=== PATIENT | female | born 1950 | race Caucasian/White ===

== ENCOUNTER 2017-01-03 15:45 | Inpatient (IN) | payer OTHER ==
[~2017-01-03] VITALS: Ht 157.5 cm; Wt 66.0 kg
[~2017-01-03 15:45] MED LIST: FLUT0.15 NAE; FSMD/70 PO
[2017-01-03] MEDS ORDERED: SODIUM CHLORIDE 0.9% 1000ML 1,000 ML IV STA (16:21)
[2017-01-03 16:35] LABS: BASO % 0.1 %; BASO ABS # 0.02 K/uL (0-0.2); COMPLETE YES; EOS % 0.2 %; HEMATOCRIT 47.8 % (37-47); IG% 0.3 %; LYMPH % 11.7 %; LYMPH ABS # 2.03 K/uL (1.2-3.4); MEAN CELL VOLUME 85.7 fL (80-100); MEAN CORPUSCULAR HEMOGLOBIN 30.3 pg (25-34); MEAN CORPUSCULAR HGB CONC 35.4 g/dl (32-36); MEAN PLATELET VOLUME 9.8 fL (7.4-10.4); MONO % 4.3 %; NEUT % 83.4 %; PLATELET COUNT 208 K/uL (130-400); RED BLOOD COUNT 5.58 M/uL (4.2-5.4); WHITE BLOOD COUNT 17.29 K/uL (4.8-10.8)
[2017-01-03] MEDS ORDERED: ASPI-390 PO (16:38)
[2017-01-03] MEDS ORDERED: CALC500C70 PO (16:38)
[2017-01-03] MEDS ORDERED: ACET-1256 PO (16:38)
[2017-01-03] MEDS ORDERED: SIME80CH PO (16:39)
[2017-01-03] MEDS: MoRPHine SULFATE 10 MG/ML CARP/VIAL IV PRN ×2 (16:53→17:50)
[2017-01-03] MEDS ORDERED: ONDANSETRON INJ 2 MG/ML 2 ML VIAL IV STA ×4 (16:57→19:03)
--- NOTE | 2017-01-03 17:02 | EMERGENCY ROOM VISIT NOTE ---
History First contact with patient: 16:03 Chief Complaint: ABDOMINAL PAIN Stated Complaint: BELLY PAIN Nursing Triage Summary: Pt c/o lower abd pain since last night. Denies n/v/d. "Oh I hope it's not constipation. I've drinking water" History of Present Illness The patient is a 66 year old female w/ hysterectomy who presents to the Emergency Room with complaints of abdominal pain x 1 day. Patient reports abdominal pain since 1:30 pm day prior to arrival . Pain is diffuse, constant , coming in waves on increased intensity up 10/10. Pain worsens when sitting ujp/ standing up She denies Fevers/ chills. N/V, change in stool, melena, She tried taking Milk of Magnesia, Gas Ex, Excedrin, Tylenol, with minimal relief. She had not had previous symptoms to this that she can recall. Pt denies headache, , chest pain, shortness of breath, diarrhea, pain with urination Review of Systems See HPI for pertinent positives & negatives. A total of 10 systems reviewed and were otherwise negative. Past Medical/Surgical History Medical Problems: (1) Acute diverticulitis Surgical Problems: (1) H/O: hysterectomy Family History No pertinent family history Social History Smoking Status: Current Every Day Smoker Current/Historical Medications Scheduled Acetaminophen (Tylenol), 1,000 MG PO DIRECTED Alendronate/Cholecalciferol (Fosamax+D 70MG/2800 Iu), 1 TABLET PO WK Nmmeoab-Lppcelvomagfe-Ytvnxtyp (Excedrin Migraine), 1 TAB PO DIRECTED Calcium/Vitamin D (Os-Sean 500 Plus D), 1 TAB PO DAILY Fluticasone Propionate (Nasal) (Flonase Allergy Relief), 2 SPRAY BARB QAM Simethicone (Gas-X), 80 MG PO DIRECTED Allergies Coded Allergies: Codeine (Verified Allergy, Mild, GI SYMPTOMS, 01/03/17) nauseated Morphine (Verified Adverse Reaction, Intermediate, nausea and vomiting, ) Physical Exam Vital Signs Date Time Temp Pulse Resp B/P Pulse Ox O2 Delivery O2 Flow Rate FiO2 01/03/17 20:08 96 16 118/88 96 Nasal Cannula 2.0 01/03/17 19:14 94 16 118/88 94 Room Air 01/03/17 17:35 93 18 96 Room Air 01/03/17 17:01 107 01/03/17 15:49 36.4 112 20 142/96 96 Room Air Physical Exam GENERAL: alert,significant distress, well nourished, EYE EXAM: normal conjunctiva, PERRL and EOM's grossly intact NECK: supple, no nuchal rigidity, no adenopathy, non-tender LUNGS: Clear to auscultation. Normal chest wall mechanics HEART: no murmurs, S1 normal and S2 normal ABDOMEN: abdomen soft, , normo-active bowel sounds, no masses,Tender to palpation, Lower abdomen, + guarding, no rebound tenderness SKIN: no rashes and no bruising UPPER EXTREMITIES: upper extremities are grossly normal. LOWER EXTREMITIES: No pitting edema. NEURO EXAM: Normal sensorium, cranial nerves II-XII grossly intact, normal speech, no gross weakness of arms, no gross weakness of legs. Medical Decision & Procedures ER Provider Diagnostic Interpretation: CT OF THE ABDOMEN AND PELVIS WITH CONTRAST CLINICAL HISTORY: Abdominal pain and constipation. COMPARISON STUDY: None. TECHNIQUE: Following IV administration of 116 mL of Optiray-320, axial images of the abdomen and pelvis were obtained from the lung bases to the proximal femurs. Images were reviewed in the axial, sagittal, and coronal planes. IV contrast was administered without complication. CT DOSE: 270.97 mGy.cm FINDINGS: The liver, spleen, adrenal glands are unremarkable. There is no hydronephrosis. There is a 1 cm cyst within the midpole of the left kidney. There is no hydronephrosis. There is mild dilatation of the main pancreatic duct which measures 4 mm in caliber. There is mild dilatation of the common bile duct which measures 9 mm. No pancreatic mass is identified by CT. There is no pneumatosis, free air or portal venous gas. The cecum, ascending colon, transverse colon are mildly dilated and fluid-filled. No discrete transition point is identified. There is extensive sigmoid diverticulosis. There is minimal fluid and infiltration adjacent to the sigmoid colon. There is no free air or abscess. No lymphadenopathy is present. Skeletal structures are unremarkable. There is extensive atherosclerotic plaque of the abdominal aorta. There is no aneurysm of the abdominal aorta. IMPRESSION: 1. Findings suggestive of mild acute sigmoid diverticulitis. No free air or abscess. 2. Mildly dilated, fluid-filled cecum, ascending colon and transverse colon without transition point. However, a follow-up nonemergent colonoscopy is suggested to exclude the unlikely possibility of a colonic lesion. No convincing colonic obstruction on this exam. 3. Mild dilatation of the common bile duct and the main pancreatic duct. No pancreatic mass identified. This is of questionable significance and could be correlated with obstructive liver function tests. Laboratory Results 01/03/17 16:25 Red Blood Count 5.58, Mean Corpuscular Volume 85.7, Mean Corpuscular Hemoglobin 30.3, Mean Corpuscular Hemoglobin Concent 35.4, Mean Platelet Volume 9.8, Neutrophils (%) (Auto) 83.4, Lymphocytes (%) (Auto) 11.7, Monocytes (%) (Auto) 4.3, Eosinophils (%) (Auto) 0.2, Basophils (%) (Auto) 0.1, Neutrophils # (Auto) 14.41, Lymphocytes # (Auto) 2.03, Monocytes # (Auto) 0.74, Eosinophils # (Auto) 0.04, Basophils # (Auto) 0.02 01/03/17 16:25 Test 01/03/17 16:25 01/03/17 16:55 White Blood Count 17.29 K/uL (4.8-10.8) Red Blood Count 5.58 M/uL (4.2-5.4) Hemoglobin 16.9 g/dL (12.0-16.0) Hematocrit 47.8 % (37-47) Mean Corpuscular Volume 85.7 fL (80-100) Mean Corpuscular Hemoglobin 30.3 pg (25-34) Mean Corpuscular Hemoglobin Concent 35.4 g/dl (32-36) Platelet Count 208 K/uL (130-400) Mean Platelet Volume 9.8 fL (7.4-10.4) Neutrophils (%) (Auto) 83.4 % Lymphocytes (%) (Auto) 11.7 % Monocytes (%) (Auto) 4.3 % Eosinophils (%) (Auto) 0.2 % Basophils (%) (Auto) 0.1 % Neutrophils # (Auto) 14.41 K/uL (1.4-6.5) Lymphocytes # (Auto) 2.03 K/uL (1.2-3.4) Monocytes # (Auto) 0.74 K/uL (0.11-0.59) Eosinophils # (Auto) 0.04 K/uL (0-0.5) Basophils # (Auto) 0.02 K/uL (0-0.2) RDW Standard Deviation 43.8 fL (36.4-46.3) RDW Coefficient of Variation 14.1 % (11.5-14.5) Immature Granulocyte % (Auto) 0.3 % Immature Granulocyte # (Auto) 0.05 K/uL (0.00-0.02) Anion Gap 7.0 mmol/L (3-11) Est Creatinine Clear Calc Drug Dose 73.7 ml/min Estimated GFR () 105.9 Estimated GFR (Non- 91.4 BUN/Creatinine Ratio 12.1 (10-20) Calcium Level 8.8 mg/dl (8.5-10.1) Total Bilirubin 0.8 mg/dl (0.2-1) Direct Bilirubin mg/dl (0-0.2) Aspartate Amino Transf (AST/SGOT) 25 U/L (15-37) Alanine Aminotransferase (ALT/SGPT) 22 U/L (12-78) Alkaline Phosphatase 68 U/L (45-117) Total Protein 7.6 gm/dl (6.4-8.2) Albumin 3.5 gm/dl (3.4-5.0) Lipase 130 U/L (73-393) Chemistry Specimen Hemolysis Urine Color YELLOW Urine Appearance CLEAR (CLEAR) Urine pH 6.5 (4.5-7.5) Urine Specific [place] 1.006 (1.000-1.030) Urine Protein NEG (NEG) Urine Glucose (UA) NEG (NEG) Urine Ketones NEG (NEG) Urine Occult Blood TRACE (NEG) Urine Nitrite NEG (NEG) Urine Bilirubin NEG (NEG) Urine Urobilinogen NEG (NEG) Urine Leukocyte Esterase NEG (NEG) Urine WBC (Auto) 0 /hpf (0-5) Urine RBC (Auto) 0-4 /hpf (0-4) Urine Hyaline Casts (Auto) 0 /lpf (0-5) Urine Epithelial Cells (Auto) 5-10 /lpf (0-5) Urine Bacteria (Auto) NEG (NEG) Medications Administered Medications (Trade) Dose Ordered Sig/Jordan Route Start Time Stop Time Status Last Admin Dose Admin Sodium Chloride (Nss 1000ml) 1,000 ml @ 999 mls/hr Q1H1M STAT IV 01/03/17 16:21 01/03/17 17:21 DC 3/30/17 16:53 999 MLS/HR Morphine Sulfate (MoRPHine SULFATE INJ) 6 mg Q1H PRN IV 01/03/17 16:30 01/03/17 21:08 DC 01/03/17 17:50 6 MG Ondansetron HCl (Zofran Inj) 4 mg NOW STAT IV 01/03/17 16:57 01/03/17 17:00 DC 01/03/17 17:03 4 MG Piperacillin Sod/ Tazobactam Sod (Zosyn Iv) 4.5 gm NOW STAT IV 01/03/17 18:39 01/03/17 18:41 DC 01/03/17 19:05 4.5 GM Ondansetron HCl 4 mg 4 mg NOW STAT IV 01/03/17 18:45 01/03/17 19:06 DC 01/03/17 19:07 4 MG Ciprofloxacin/ Dextrose/Prmx (Cipro / D5w/ Premixed D5W) 200 ml @ 100 mls/hr 1915 ONCE IV 01/03/17 19:15 01/03/17 21:14 DC 01/03/17 19:39 100 MLS/HR Medical Decision Differential diagnoses includes but is not limited to gastritis, peptic ulcer disease, GERD, gallbladder disease, pancreatitis, small bowel obstruction, acute coronary syndrome, pericarditis, ischemic bowel, irritable bowel disease, irritable bowel syndrome, appendicitis, diverticulitis, malignancy, hernia, urinary tract infection, torsion, /ectopic , perforation, trauma, infectious. 66 yo F p/w progressive diffuse Abdominal pain x 1 day, afebrile, tachycardic on arrival ( HR: 105) CBC: White Ct 17.29, BMP unremarkable LFT's wnl Lipase wnl UA: Trace blood, Neg Leukocyte esterase, Neg Bacteria CT Abdomen, Pelvis IV contrast: mild acute sigmoid diverticulitis Acute Sigmoid Diverticulitis -Given Zofran 4 mg IV, IV NS 1L, Morphine 6 mg x2 -Started IV Zosyn 4.5 gm, IV Cipro 400 mg -Discussed case with Dr. Corral who agreed to evaluate the patient for admission to the inpatient service Impression Primary Impression: Diffuse abdominal pain Additional Impression: Nausea Departure Information Dispostion Admitted as an inpatient Referrals Estefanía Ayala M.D. (PCP) Patient Instructions My [facility] Resident Tracking Resident Involvement: Resident Care Provided Care Provided: Adult ED Problem Qualifiers
[2017-01-03 17:07] LABS: URINE APPEARANCE CLEAR (CLEAR); URINE BILIRUBIN NEG (NEG); URINE COLOR YELLOW; URINE NITRITE NEG (NEG); URINE PH 6.5 (4.5-7.5); URINE SPECIFIC GRAVITY 1.006 (1.000-1.030); UROBILINOGEN NEG (NEG); ZZUR CULT IF INDIC CLEAN CATCH NO
[2017-01-03 17:11] LABS: MANUAL MICROSCOPIC REQUIRED? NO; REVIEW REQ? NO
[2017-01-03 17:13] LABS: ALKALINE PHOSPHATASE 68 U/L (45-117); ALT/SGPT 22 U/L (12-78); AST/SGOT 25 U/L (15-37); BLOOD UREA NITROGEN 8 mg/dl (7-18); BUN/CREATININE RATIO 12.1 (10-20); CALCIUM 8.8 mg/dl (8.5-10.1); CARBON DIOXIDE 27 mmol/L (21-32); CHLORIDE 104 mmol/L (98-107); CREATININE 0.66 mg/dl (0.60-1.20); GLUCOSE 105 mg/dl (70-99); POTASSIUM 3.8 mmol/L (3.5-5.1); SODIUM 138 mmol/L (136-145)
[2017-01-03] MEDS ORDERED: MoRPHine SULFATE 10 MG/ML CARP/VIAL IV STA (17:37)
[2017-01-03] MEDS ORDERED: OPTIRAY 320 IV PRN (18:15)
--- NOTE | 2017-01-03 18:31 | DIAGNOSTIC IMAGING REPORT ---
CT OF THE ABDOMEN AND PELVIS WITH CONTRAST CLINICAL HISTORY: Abdominal pain and constipation. COMPARISON STUDY: None. TECHNIQUE: Following IV administration of 116 mL of Optiray-320, axial images of the abdomen and pelvis were obtained from the lung bases to the proximal femurs. Images were reviewed in the axial, sagittal, and coronal planes. IV contrast was administered without complication. CT DOSE: 270.97 mGy.cm FINDINGS: The liver, spleen, adrenal glands are unremarkable. There is no hydronephrosis. There is a 1 cm cyst within the midpole of the left kidney. There is no hydronephrosis. There is mild dilatation of the main pancreatic duct which measures 4 mm in caliber. There is mild dilatation of the common bile duct which measures 9 mm. No pancreatic mass is identified by CT. There is no pneumatosis, free air or portal venous gas. The cecum, ascending colon, transverse colon are mildly dilated and fluid-filled. No discrete transition point is identified. There is extensive sigmoid diverticulosis. There is minimal fluid and infiltration adjacent to the sigmoid colon. There is no free air or abscess. No lymphadenopathy is present. Skeletal structures are unremarkable. There is extensive atherosclerotic plaque of the abdominal aorta. There is no aneurysm of the abdominal aorta. IMPRESSION: 1. Findings suggestive of mild acute sigmoid diverticulitis. No free air or abscess. 2. Mildly dilated, fluid-filled cecum, ascending colon and transverse colon without transition point. However, a follow-up nonemergent colonoscopy is suggested to exclude the unlikely possibility of a colonic lesion. No convincing colonic obstruction on this exam. 3. Mild dilatation of the common bile duct and the main pancreatic duct. No pancreatic mass identified. This is of questionable significance and could be correlated with obstructive liver function tests. Electronically signed by: Yobani Hunter M.D. 01/03/2017 6:29 PM Dictated Date/Time: 01/03/2017 6:20 PM
[2017-01-03] MEDS ORDERED: PIPERACILLIN/TAZOBACTAM 4.5 GM/100ML D5W IV STA (18:39)
[2017-01-03] MEDS ORDERED: CIPROFLOXACIN 400MG / D5W IV ONE (19:15)
[2017-01-03] MEDS ORDERED: PROMETHAZINE HCL INJ 12.5 MG in SODIUM CHLORIDE 0.9% 50ML 50 ML IV PRN (20:45)
[2017-01-03] MEDS ORDERED: HYDROmorphone INJ 0.5 MG/0.5 ML SYR IV PRN (21:00)
[2017-01-03] MEDS ORDERED: ACETAMINOPHEN 325 MG TAB PO PRN (21:00)
[2017-01-03] MEDS ORDERED: ONDANSETRON INJ 2 MG/ML 2 ML VIAL IV PRN (21:00)
[2017-01-03] MEDS ORDERED: PROMETHAZINE HCL INJ 25 MG/ML 1 ML VIAL ONE (21:05)
[2017-01-03 21:45] VITALS: BP 133/77; PULSE 87; TEMP 36.7; O2SAT 92; Ht 157.5 cm; Wt 66.0 kg
[2017-01-03] MEDS: METRONIDAZOLE / NSS 500 MG in PREMIXED NSS 100 ML IV SCH (22:43)
[2017-01-03] MEDS: SODIUM CHLOR 0.45% + 20MEQ KCL 1,000 ML IV SCH (22:44)
--- NOTE | 2017-01-03 22:46 | EMERGENCY ROOM VISIT NOTE ---
History Report prepared by Traceyibadelina: Wilman Fernando Under the Supervision of: Codey AlcarazO. First contact with patient: 16:03 Chief Complaint: ABDOMINAL PAIN Stated Complaint: BELLY PAIN History of Present Illness The patient is a 66 year old female who presents to the Emergency Room with complaints of waxing & waning diffuse abdominal pain since yesterday afternoon. The pain is sharp in nature and does not radiate. The pain comes in waves with 10/10 pain at its worst. She has tried milk of magnesia, Excedrin, Tylenol, and Gas-X without relief. Her last bowel movement was yesterday which was normal. She is s/p hysterectomy and still has her appendix and gallbladder. She denies any history of diverticulitis. Patient denies headache, change in vision, fevers , chest pain, shortness of breath, nausea, vomiting, diarrhea, pain with urination, and melena. Source of History: patient Onset: yesterday afternoon Position: abdomen Quality: sharp Timing: waxes/wanes Associated Symptoms: No SOB, No chest pain, No diarrhea, No fevers, No headache, No melena, No nausea, No urinary symptoms, No vomiting Review of Systems See HPI for pertinent positives & negatives. A total of 10 systems reviewed and were otherwise negative. Past Medical & Surgical Medical Problems: (1) Acute diverticulitis Surgical Problems: (1) H/O: hysterectomy Family History No pertinent family history Social History Smoking Status: Current Every Day Smoker Housing Status: lives with family Current/Historical Medications Scheduled Acetaminophen (Tylenol), 1,000 MG PO DIRECTED Alendronate/Cholecalciferol (Fosamax+D 70MG/2800 Iu), 1 TABLET PO WK Vrdzcky-Vwuieshawrykv-Etmgrgka (Excedrin Migraine), 1 TAB PO DIRECTED Calcium/Vitamin D (Os-Sean 500 Plus D), 1 TAB PO DAILY Fluticasone Propionate (Nasal) (Flonase Allergy Relief), 2 SPRAY BARB QAM Simethicone (Gas-X), 80 MG PO DIRECTED Allergies Coded Allergies: Codeine (Verified Allergy, Mild, GI SYMPTOMS, 01/03/17) nauseated Morphine (Verified Adverse Reaction, Intermediate, nausea and vomiting, ) Physical Exam Vital Signs Date Time Temp Pulse Resp B/P Pulse Ox O2 Delivery O2 Flow Rate FiO2 01/03/17 20:08 96 16 118/88 96 Nasal Cannula 2.0 01/03/17 19:14 94 16 118/88 94 Room Air 01/03/17 17:35 93 18 96 Room Air 01/03/17 17:01 107 01/03/17 15:49 36.4 112 20 142/96 96 Room Air Physical Exam GENERAL: Sitting up in bed, ill-appearing, uncomfortable. EYE EXAM: normal conjunctiva. OROPHARYNX: no exudate, no erythema, lips, buccal mucosa, and tongue normal and mucous membranes are moist NECK: supple, no nuchal rigidity, no adenopathy, non-tender LUNGS: Clear to auscultation. Normal chest wall mechanics HEART: no murmurs, S1 normal and S2 normal ABDOMEN: Tender to palpation infraumbilically with guarding. BACK: Back is symmetrical on inspection and there is no deformity, no midline tenderness, no CVA tenderness. SKIN: no rashes and no bruising UPPER EXTREMITIES: upper extremities are grossly normal. LOWER EXTREMITIES: No pitting edema. NEURO EXAM: Normal sensorium. Medical Decision & Procedures ER Provider Diagnostic Interpretation: CT:Per my review, radiologist interpretation. CT OF THE ABDOMEN AND PELVIS WITH CONTRAST CLINICAL HISTORY: Abdominal pain and constipation. COMPARISON STUDY: None. TECHNIQUE: Following IV administration of 116 mL of Optiray-320, axial images of the abdomen and pelvis were obtained from the lung bases to the proximal femurs. Images were reviewed in the axial, sagittal, and coronal planes. IV contrast was administered without complication. CT DOSE: 270.97 mGy.cm FINDINGS: The liver, spleen, adrenal glands are unremarkable. There is no hydronephrosis. There is a 1 cm cyst within the midpole of the left kidney. There is no hydronephrosis. There is mild dilatation of the main pancreatic duct which measures 4 mm in caliber. There is mild dilatation of the common bile duct which measures 9 mm. No pancreatic mass is identified by CT. There is no pneumatosis, free air or portal venous gas. The cecum, ascending colon, transverse colon are mildly dilated and fluid-filled. No discrete transition point is identified. There is extensive sigmoid diverticulosis. There is minimal fluid and infiltration adjacent to the sigmoid colon. There is no free air or abscess. No lymphadenopathy is present. Skeletal structures are unremarkable. There is extensive atherosclerotic plaque of the abdominal aorta. There is no aneurysm of the abdominal aorta. IMPRESSION: 1. Findings suggestive of mild acute sigmoid diverticulitis. No free air or abscess. 2. Mildly dilated, fluid-filled cecum, ascending colon and transverse colon without transition point. However, a follow-up nonemergent colonoscopy is suggested to exclude the unlikely possibility of a colonic lesion. No convincing colonic obstruction on this exam. 3. Mild dilatation of the common bile duct and the main pancreatic duct. No pancreatic mass identified. This is of questionable significance and could be correlated with obstructive liver function tests. Electronically signed by: Yobani Hunter M.D. 01/03/2017 6:29 PM Dictated Date/Time: 01/03/2017 6:20 PM Laboratory Results 01/03/17 16:25 Red Blood Count 5.58, Mean Corpuscular Volume 85.7, Mean Corpuscular Hemoglobin 30.3, Mean Corpuscular Hemoglobin Concent 35.4, Mean Platelet Volume 9.8, Neutrophils (%) (Auto) 83.4, Lymphocytes (%) (Auto) 11.7, Monocytes (%) (Auto) 4.3, Eosinophils (%) (Auto) 0.2, Basophils (%) (Auto) 0.1, Neutrophils # (Auto) 14.41, Lymphocytes # (Auto) 2.03, Monocytes # (Auto) 0.74, Eosinophils # (Auto) 0.04, Basophils # (Auto) 0.02 01/03/17 16:25 Test 01/03/17 16:25 01/03/17 16:55 White Blood Count 17.29 K/uL (4.8-10.8) Red Blood Count 5.58 M/uL (4.2-5.4) Hemoglobin 16.9 g/dL (12.0-16.0) Hematocrit 47.8 % (37-47) Mean Corpuscular Volume 85.7 fL (80-100) Mean Corpuscular Hemoglobin 30.3 pg (25-34) Mean Corpuscular Hemoglobin Concent 35.4 g/dl (32-36) Platelet Count 208 K/uL (130-400) Mean Platelet Volume 9.8 fL (7.4-10.4) Neutrophils (%) (Auto) 83.4 % Lymphocytes (%) (Auto) 11.7 % Monocytes (%) (Auto) 4.3 % Eosinophils (%) (Auto) 0.2 % Basophils (%) (Auto) 0.1 % Neutrophils # (Auto) 14.41 K/uL (1.4-6.5) Lymphocytes # (Auto) 2.03 K/uL (1.2-3.4) Monocytes # (Auto) 0.74 K/uL (0.11-0.59) Eosinophils # (Auto) 0.04 K/uL (0-0.5) Basophils # (Auto) 0.02 K/uL (0-0.2) RDW Standard Deviation 43.8 fL (36.4-46.3) RDW Coefficient of Variation 14.1 % (11.5-14.5) Immature Granulocyte % (Auto) 0.3 % Immature Granulocyte # (Auto) 0.05 K/uL (0.00-0.02) Anion Gap 7.0 mmol/L (3-11) Est Creatinine Clear Calc Drug Dose 73.7 ml/min Estimated GFR () 105.9 Estimated GFR (Non- 91.4 BUN/Creatinine Ratio 12.1 (10-20) Calcium Level 8.8 mg/dl (8.5-10.1) Total Bilirubin 0.8 mg/dl (0.2-1) Direct Bilirubin mg/dl (0-0.2) Aspartate Amino Transf (AST/SGOT) 25 U/L (15-37) Alanine Aminotransferase (ALT/SGPT) 22 U/L (12-78) Alkaline Phosphatase 68 U/L (45-117) Total Protein 7.6 gm/dl (6.4-8.2) Albumin 3.5 gm/dl (3.4-5.0) Lipase 130 U/L (73-393) Chemistry Specimen Hemolysis Urine Color YELLOW Urine Appearance CLEAR (CLEAR) Urine pH 6.5 (4.5-7.5) Urine Specific [place] 1.006 (1.000-1.030) Urine Protein NEG (NEG) Urine Glucose (UA) NEG (NEG) Urine Ketones NEG (NEG) Urine Occult Blood TRACE (NEG) Urine Nitrite NEG (NEG) Urine Bilirubin NEG (NEG) Urine Urobilinogen NEG (NEG) Urine Leukocyte Esterase NEG (NEG) Urine WBC (Auto) 0 /hpf (0-5) Urine RBC (Auto) 0-4 /hpf (0-4) Urine Hyaline Casts (Auto) 0 /lpf (0-5) Urine Epithelial Cells (Auto) 5-10 /lpf (0-5) Urine Bacteria (Auto) NEG (NEG) Laboratory results per my review. Medications Administered Medications (Trade) Dose Ordered Sig/Jordan Route Start Time Stop Time Status Last Admin Dose Admin Sodium Chloride (Nss 1000ml) 1,000 ml @ 999 mls/hr Q1H1M STAT IV 01/03/17 16:21 01/03/17 17:21 DC 01/03/17 16:53 999 MLS/HR Morphine Sulfate (MoRPHine SULFATE INJ) 6 mg Q1H PRN IV 01/03/17 16:30 01/03/17 21:08 DC 01/03/17 17:50 6 MG Ondansetron HCl (Zofran Inj) 4 mg NOW STAT IV 01/03/17 16:57 01/03/17 17:00 DC 01/03/17 17:03 4 MG Piperacillin Sod/ Tazobactam Sod (Zosyn Iv) 4.5 gm NOW STAT IV 01/03/17 18:39 01/03/17 18:41 DC 01/03/17 19:05 4.5 GM Ondansetron HCl 4 mg 4 mg NOW STAT IV 01/03/17 18:45 01/03/17 19:06 DC 01/03/17 19:07 4 MG Ciprofloxacin/ Dextrose/Prmx (Cipro / D5w/ Premixed D5W) 200 ml @ 100 mls/hr 1915 ONCE IV 01/03/17 19:15 01/03/17 21:14 DC 01/03/17 19:39 100 MLS/HR ED Course ED COURSE: Vital signs were reviewed and showed tachycardia. The patients medical record was reviewed The above diagnostic studies were performed and reviewed. ED treatments and interventions as stated above. 1605: The patient was evaluated by my resident. 1621: NSS 1000 ml @ 999 mls/hr. 1625: The patient was evaluated in room A3. A complete history and physical examination was performed. 1630: Morphine Sulfate 6 mg IV. 1657: Zofran 4 mg IV. 1735: Minimal abdominal pain reduction thus far. She will get more morphine. Was reassessed by resident. 1839: Zosyn 4.5 gm IV. 1845: Zofran 4 mg IV. 1906: The resident spoke with Dr. Corral, [facility] Hospitalist. The patient will be evaluated. 191: Upon reevaluation, the patient is stable.I discussed my findings with the patient and she understands and agrees with the treatment plan. Based on the patients age, coexisting illnesses, exam and lab findings the decision to treat as an inpatient was made. The patient remained stable while under my care. The patient will be evaluated for further management. 191: Ciprofloxacin / dextrose 400 mg / prmx 200 ml @ 100 mls/hr. Medical Decision Differential diagnoses includes but is not limited to gastritis, peptic ulcer disease, GERD, gallbladder disease, pancreatitis, small bowel obstruction, acute coronary syndrome, pericarditis, ischemic bowel, irritable bowel disease, irritable bowel syndrome, appendicitis, diverticulitis, malignancy, hernia, urinary tract infection, torsion, /ectopic (if female), perforation, trauma, infectious. Patient is a 66-year-old female who presents the ER for left lower quadrant abdominal pain. She seen by her primary care doctor and referred in for further evaluation. On exam she does have guarding in her left lower quadrant. Abdomen remarkable for a leukocytosis of 17,000. BMP along with LFTs, bili Wilian and lipase was unremarkable. UA was unremarkable. CT of the abdomen and pelvis shows diverticulitis associated with a dilated colon without any transition point. There was also slight dilation of the biliary tree with normal LFTs and bilirubin. Patient was given IV antibiotics, fluids and pain control. Narcotics. Patient was admitted to internal medicine for observation and pain control. Impression Primary Impression: Diverticulitis Scribe Attestation The scribe's documentation has been prepared under my direction and personally reviewed by me in its entirety. I confirm that the note above accurately reflects all work, treatment, procedures, and medical decision making performed by me. Departure Information Dispostion Being Evaluated By Hospitalist Referrals No Doctor, Assigned (PCP) Patient Instructions My [facility] Problem Qualifiers Primary Impression: Diverticulitis Diverticulitis site: large intestine Diverticulitis bleeding: without bleeding Diverticulitis complication: without perforation or abscess Qualified Codes: K57.32 - Diverticulitis of large intestine without perforation or abscess without bleeding
[2017-01-03 23:14] LABS: PROTHROMBIN TIME (PATIENT) 10.9 SECONDS (9.0-12.0)
[2017-01-03 23:40] VITALS: BP 96/59; PULSE 77; TEMP 36.8; O2SAT 96
[2017-01-04] VITALS (7 sets, daily range): BP systolic 103–118; BP diastolic 66–78; PULSE 67–99; TEMP 36.5–37.2; O2SAT 80–95
[2017-01-04] MEDS ORDERED: NICOTINE 14 MG/24 HR TDSY TD ONE (00:24)
--- NOTE | 2017-01-04 00:42 | History and Physical ---
History & Physical Date & Time of Service: Jan 04, 2017 at 00:25 Chief Complaint: Acute Diverticulitis Primary Care Physician: Estefanía Ayala M.D. History of Present Illness Source: patient, family This patient is a 66-year-old female with a history of osteoporosis, allergies, and migraine headaches, who presents with left lower quadrant abdominal pain that started 1 day prior to admission. It was a 10 out of 10 in severity and was fairly constant but coming and going in waves at times. She was afebrile and denied fevers chills or sweats at home. She denied nausea vomiting or diarrhea at home, however since arriving in the ER and getting morphine, she has been persistently having nausea and vomiting. She was found to have a white blood cell count of 17,000, and a CT scan of the abdomen and pelvis showed sigmoid diverticulitis as well as a mildly dilated common bile duct. She had normal LFTs and normal lipase. Her electrolytes were normal as well. She was afebrile but was tachycardic upon arrival. She was given IV Zosyn and Cipro as well as morphine and Zofran in the ER. She was also hydrated with intravenous fluids. She had a colonoscopy about one year ago which showed several smaller polyps in the rectum and descending colon and one larger 11 mm polyp in the sigmoid colon which was resected. These were all hyperplastic polyps and one tubular adenoma. She was also noted to have sigmoid diverticulosis at that time. She will be admitted for acute diverticulitis. Past Medical/Surgical History Past medical history: Osteoporosis Allergies Migraine headaches Past surgical history: Hysterectomy for fibroids Shoulder surgery Family History No pertinent family history Noncontributory Social History Smoking Status: Current Every Day Smoker (smokes a half pack per day for 45 years) Alcohol Use: none Marital Status: Housing status: lives with family Multi-Drug Resistant Organisms History of MDRO: No Allergies Coded Allergies: Codeine (Verified Allergy, Mild, GI SYMPTOMS, 01/03/17) nauseated Morphine (Verified Adverse Reaction, Intermediate, nausea and vomiting, ) Home Medications Scheduled Acetaminophen (Tylenol), 1,000 MG PO DIRECTED Alendronate/Cholecalciferol (Fosamax+D 70MG/2800 Iu), 1 TABLET PO WK Tlhwqji-Wiimxczvnzwtk-Bfupttvi (Excedrin Migraine), 1 TAB PO DIRECTED Calcium/Vitamin D (Os-Sean 500 Plus D), 1 TAB PO DAILY Fluticasone Propionate (Nasal) (Flonase Allergy Relief), 2 SPRAY BARB QAM Simethicone (Gas-X), 80 MG PO DIRECTED Review of Systems Constitutional: No chills, No fever, No sweats Eyes: No problem reported ENT: No problem reported Respiratory: No shortness of breath Cardiovascular: No chest pain Abdomen: + constipation, + nausea, + pain, + vomiting, No GI bleeding, No diarrhea Musculoskeletal: No problem reported Genitourinary - Female: No problem reported Neurologic: No problem reported Psychiatric: No problem reported Endocrine: No problem reported Hematologic / Lymphatic: No problem reported Integumentary: No problem reported Allergic / Immunologic: No problem reported Physical Exam Vital Signs Date Time Temp Pulse Resp B/P Pulse Ox O2 Delivery O2 Flow Rate FiO2 01/03/17 23:40 36.8 77 16 96/59 96 Nasal Cannula 3.0 01/03/17 21:45 36.7 87 16 133/77 92 Nasal Cannula 2.0 01/03/17 21:33 87 18 117/80 97 Nasal Cannula 2.0 01/03/17 20:08 96 16 118/88 96 Nasal Cannula 2.0 01/03/17 19:14 94 16 118/88 94 Room Air 01/03/17 17:35 93 18 96 Room Air 01/03/17 17:01 107 01/03/17 15:49 36.4 112 20 142/96 96 Room Air General Appearance: WD/WN, + mild distress Head: normocephalic, atraumatic Eyes: normal inspection, PERRL, EOMI, sclerae normal ENT: hearing grossly normal, pharynx normal Neck: supple, thyroid normal, no carotid bruits, trachea midline Respiratory/Chest: lungs clear, normal breath sounds, no respiratory distress, no accessory muscle use Cardiovascular: regular rate, rhythm, no edema, no gallop, no murmur, normal peripheral pulses Abdomen/GI: soft, no pulsatile mass, + tenderness (in left lower quadrant and suprapubic regions with mild voluntary guarding, no rebound tenderness), + abnormal bowel sounds (hypoactive) Back: normal inspection Extremities/Musculoskelatal: no calf tenderness, normal range of motion Neurologic/Psych: alert, normal mood/affect, oriented x 3 Skin: normal color, warm/dry, no rash Diagnostics Laboratory Results Results Past 24 Hours Test 01/03/17 16:25 01/03/17 16:55 Range/Units White Blood Count 17.29 4.8-10.8 K/uL Red Blood Count 5.58 4.2-5.4 M/uL Hemoglobin 16.9 12.0-16.0 g/dL Hematocrit 47.8 37-47 % Mean Corpuscular Volume 85.7 80-100 fL Mean Corpuscular Hemoglobin 30.3 25-34 pg Mean Corpuscular Hemoglobin Concent 35.4 32-36 g/dl Platelet Count 208 130-400 K/uL Mean Platelet Volume 9.8 7.4-10.4 fL Neutrophils (%) (Auto) 83.4 % Lymphocytes (%) (Auto) 11.7 % Monocytes (%) (Auto) 4.3 % Eosinophils (%) (Auto) 0.2 % Basophils (%) (Auto) 0.1 % Neutrophils # (Auto) 14.41 1.4-6.5 K/uL Lymphocytes # (Auto) 2.03 1.2-3.4 K/uL Monocytes # (Auto) 0.74 0.11-0.59 K/uL Eosinophils # (Auto) 0.04 0-0.5 K/uL Basophils # (Auto) 0.02 0-0.2 K/uL RDW Standard Deviation 43.8 36.4-46.3 fL RDW Coefficient of Variation 14.1 11.5-14.5 % Immature Granulocyte % (Auto) 0.3 % Immature Granulocyte # (Auto) 0.05 0.00-0.02 K/uL Prothrombin Time 10.9 9.0-12.0 SECONDS Prothromb Time International Ratio 1.0 0.9-1.1 Sodium Level 138 136-145 mmol/L Potassium Level 3.8 3.5-5.1 mmol/L Chloride Level 104 98-107 mmol/L Carbon Dioxide Level 27 21-32 mmol/L Anion Gap 7.0 3-11 mmol/L Blood Urea Nitrogen 8 7-18 mg/dl Creatinine 0.66 0.60-1.20 mg/dl Est Creatinine Clear Calc Drug Dose 73.7 ml/min Estimated GFR () 105.9 Estimated GFR (Non- 91.4 BUN/Creatinine Ratio 12.1 10-20 Random Glucose 105 70-99 mg/dl Calcium Level 8.8 8.5-10.1 mg/dl Total Bilirubin 0.8 0.2-1 mg/dl Direct Bilirubin 0-0.2 mg/dl Aspartate Amino Transf (AST/SGOT) 25 15-37 U/L Alanine Aminotransferase (ALT/SGPT) 22 12-78 U/L Alkaline Phosphatase 68 45-117 U/L Total Protein 7.6 6.4-8.2 gm/dl Albumin 3.5 3.4-5.0 gm/dl Lipase 130 73-393 U/L Chemistry Specimen Hemolysis Urine Color YELLOW Urine Appearance CLEAR CLEAR Urine pH 6.5 4.5-7.5 Urine Specific [place] 1.006 1.000-1.030 Urine Protein NEG NEG Urine Glucose (UA) NEG NEG Urine Ketones NEG NEG Urine Occult Blood TRACE NEG Urine Nitrite NEG NEG Urine Bilirubin NEG NEG Urine Urobilinogen NEG NEG Urine Leukocyte Esterase NEG NEG Urine WBC (Auto) 0 0-5 /hpf Urine RBC (Auto) 0-4 0-4 /hpf Urine Hyaline Casts (Auto) 0 0-5 /lpf Urine Epithelial Cells (Auto) 5-10 0-5 /lpf Urine Bacteria (Auto) NEG NEG Diagnostic Radiology CT of the abdomen and pelvis: 1. Findings suggestive of mild acute sigmoid diverticulitis. No free air or abscess. 2. Mildly dilated, fluid-filled cecum, ascending colon and transverse colon without transition point. However, a follow-up nonemergent colonoscopy is suggested to exclude the unlikely possibility of a colonic lesion. No convincing colonic obstruction on this exam. 3. Mild dilatation of the common bile duct and the main pancreatic duct. No pancreatic mass identified. This is of questionable significance and could be correlated with obstructive liver function tests. Impression Assessment and Plan This patient is a 66-year-old female with a history of osteoporosis, allergies, and migraine headaches, who presents with left lower quadrant abdominal pain, with a significant leukocytosis-found to have acute sigmoid diverticulitis without abscess or perforation on CT of the abdomen and pelvis. Acute sigmoid diverticulitis-uncomplicated, opioid-induced nausea and vomiting, incidental finding of dilated CBD on CT without evidence of pancreatitis or cholelithiasis- -We'll give Cipro and Flagyl IV -Nothing by mouth for bowel rest -Consult gastroenterology for further evaluation-had colonoscopy less than one year ago with 11 mm tubular adenoma removed from sigmoid colon -Pain control with Toradol and Dilaudid as morphine causes severe nausea and vomiting -Anti-emetics when necessary -Follow CBC to trend white blood cell count -Consider MRCP or repeat CT abdomen to follow the dilated CBD in the future- appreciate GI recommendations for this as well Current smoker-encouraged sensation -Nicotine patch will be provided Osteoporosis-stable -Restart Fosamax plus D as an outpatient Allergies-stable, no issues Migraine headaches-not currently an issue DVT prophylaxis-SCDs and Lovenox Disposition-full code Advanced Directives Existing Living Will: No Existing Power of [place]: No VTE Prophylaxis VTE Risk Assessment Done? Y/N: Yes Risk Level: Low Additional Copies To Estefanía Ayala M.D.
[2017-01-04] MEDS: METRONIDAZOLE / NSS 500 MG in PREMIXED NSS 100 ML IV SCH ×3 (05:38→21:45)
[2017-01-04] MEDS ORDERED: CIPROFLOXACIN 400MG / 200ML D5W IV ONE (06:00)
[2017-01-04 06:23] LABS: BASO % 0.2 %; BASO ABS # 0.02 K/uL (0-0.2); COMPLETE YES; EOS % 0.5 %; HEMATOCRIT 42.2 % (37-47); IG% 0.2 %; LYMPH ABS # 2.48 K/uL (1.2-3.4); MEAN CELL VOLUME 87.7 fL (80-100); MEAN CORPUSCULAR HEMOGLOBIN 30.1 pg (25-34); MEAN CORPUSCULAR HGB CONC 34.4 g/dl (32-36); MEAN PLATELET VOLUME 9.4 fL (7.4-10.4); MONO % 6.9 %; NEUT % 73.2 %; PLATELET COUNT 185 K/uL (130-400); RED BLOOD COUNT 4.81 M/uL (4.2-5.4); WHITE BLOOD COUNT 13.06 K/uL (4.8-10.8)
[2017-01-04 07:02] LABS: BUN/CREATININE RATIO 10.9 (10-20); CALCIUM 7.8 mg/dl (8.5-10.1); CREATININE 0.57 mg/dl (0.60-1.20); MAGNESIUM 3.1 mg/dl (1.8-2.4); POTASSIUM 4.2 mmol/L (3.5-5.1)
[2017-01-04] MEDS: CIPROFLOXACIN / D5W 400 MG in PREMIXED IN D5W 200 ML IV SCH ×2 (07:36→19:41)
[2017-01-04] MEDS: NICOTINE 14 MG/24 HR TDSY TD SCH (07:45)
[2017-01-04] MEDS: ENOXAPARIN 40 MG/0.4 ML SYR SQ SCH (07:46)
[2017-01-04] MEDS: SODIUM CHLOR 0.45% + 20MEQ KCL 1,000 ML IV SCH ×2 (07:46→17:52)
--- NOTE | 2017-01-04 10:35 | Gastrointestinal Consultation ---
Gastrointestinal Consultation Date of Consultation: Jan 04, 2017 Attending Physician: Dr. Corral Consulting Physician: Dr. Latif/LES Villagomez Reason for Consultation: Acute diverticulitis History of Present Illness Patient is a 66 year old female with a history of chronic constipation presenting with a sudden onset of bilateral lower abdominal pain, maximal in the left lower quadrant. Pain began suddenly 1.5 days ago. Initially, she felt her pain was from constipation but after taking Milk of Magnesia with some bowel movements her pain did not resolve. In fact, her pain worsened. She states her pain was noted to be 10/10 in intensity at the onset of symptoms. Patient presented to the ER for further evaluation. On arrival, she was noted to have a mild leukocytosis of 17.[address] imaging consistent with mild acute sigmoid diverticulitis. Incidentally, she was also noted to have findings of "mildly dilated, fluid filled cecum, ascending colon and transverse colon without transition point" and mild pancreatic and CBD ductal dilation without evidence of overt mass. Her liver panel and lipase was normal. She is not reporting any RUQ pain, jaundice, pruritus, dark urine, acholic stools, melena, hematochezia, mucoid or bloody stools or fatigue. She denies any nausea or vomiting, bloating or fevers/chills. Her pain as present is rated as 4/10. Patient has been started on IV Cipro and Flagyl. Past Medical/Surgical History Medical Problems: (1) Diffuse abdominal pain Status: Acute (2) Diverticulitis Status: Acute (3) Nausea Status: Acute Past Medical History: 1. Migraine headaches 2. Chronic constipation 3. Osteoporosis 4. Allergic rhinitis 5. Colon polyps Past Surgical History: 1. Hysterectomy 2. Shoulder surgery 3. Colonoscopy January of 2016 Family History No pertinent family history Negative for GI malignancy or IBD Social History Smoking Status: Current Every Day Smoker (smokes a half pack per day for 45 years) Alcohol Use: none Marital Status: Housing Status: lives with family Allergies Coded Allergies: Codeine (Verified Allergy, Mild, GI SYMPTOMS, 01/03/17) nauseated Morphine (Verified Adverse Reaction, Intermediate, nausea and vomiting, ) Current Medications Home Meds and Scripts Medications Dose Route/Sig Max Daily Dose Days Date Category Gas-X (Simethicone) 80 Mg Chw 80 Mg PO DIRECTED 01/03/17 Reported Excedrin Migraine (Tbaibzf-Uwasshtdalnmy-Kjilsxpd) 1 Tab Tab 1 Tab PO DIRECTED 01/03/17 Reported Tylenol (Acetaminophen) 500 Mg Tab 1,000 Mg PO DIRECTED 01/03/17 Reported Os-Sean 500 Plus D (Calcium/Vitamin D) Tab 1 Tab PO DAILY 01/03/17 Reported Flonase Allergy Relief (Fluticasone Propionate (Nasal)) 50 Mcg/Act Spr 2 [place] BARB QAM 01/10/16 Reported Fosamax+D 70MG/2800 Iu (Alendronate Sodium/Vitamin D3) 70 Mg Tab 1 Tablet PO WK 01/10/16 Reported Review of Systems See HPI for pertinent positives & negatives. A total of 10 systems reviewed and were otherwise negative. Physical Exam Date Time Temp Pulse Resp B/P Pulse Ox O2 Delivery O2 Flow Rate FiO2 01/04/17 10:09 95 Room Air 01/04/17 08:21 36.5 92 18 110/78 95 Room Air 01/04/17 07:44 93 Nasal Cannula 2.0 01/04/17 04:05 91 Nasal Cannula 3.0 01/04/17 04:05 77 16 103/66 80 Room Air 01/04/17 00:15 Nasal Cannula 2.0 01/03/17 23:40 36.8 77 16 96/59 96 Nasal Cannula 3.0 01/03/17 21:45 36.7 87 16 133/77 92 Nasal Cannula 2.0 01/03/17 21:33 87 18 117/80 97 Nasal Cannula 2.0 01/03/17 20:08 96 16 118/88 96 Nasal Cannula 2.0 01/03/17 19:14 94 16 118/88 94 Room Air 01/03/17 17:35 93 18 96 Room Air 01/03/17 17:01 107 01/03/17 15:49 36.4 112 20 142/96 96 Room Air General Appearance: WD/WN, no apparent distress Eyes: EOMI ENT: hearing grossly normal Neck: supple Respiratory/Chest: lungs clear, normal breath sounds, no respiratory distress Cardiovascular: regular rate, rhythm, no gallop, no murmur Abdomen: normal bowel sounds, soft, + tenderness (left lower quadrant) Extremities: no pedal edema Neurologic/Psych: alert, normal mood/affect, oriented x 3 Skin: no jaundice, warm/dry Laboratory Results Last 24 Hours Test 3/30/17 16:25 01/03/17 16:55 01/04/17 06:15 White Blood Count 17.29 K/uL 13.06 K/uL Red Blood Count 5.58 M/uL 4.81 M/uL Hemoglobin 16.9 g/dL 14.5 g/dL Hematocrit 47.8 % 42.2 % Mean Corpuscular Volume 85.7 fL 87.7 fL Mean Corpuscular Hemoglobin 30.3 pg 30.1 pg Mean Corpuscular Hemoglobin Concent 35.4 g/dl 34.4 g/dl Platelet Count 208 K/uL 185 K/uL Mean Platelet Volume 9.8 fL 9.4 fL Neutrophils (%) (Auto) 83.4 % 73.2 % Lymphocytes (%) (Auto) 11.7 % 19.0 % Monocytes (%) (Auto) 4.3 % 6.9 % Eosinophils (%) (Auto) 0.2 % 0.5 % Basophils (%) (Auto) 0.1 % 0.2 % Neutrophils # (Auto) 14.41 K/uL 9.57 K/uL Lymphocytes # (Auto) 2.03 K/uL 2.48 K/uL Monocytes # (Auto) 0.74 K/uL 0.90 K/uL Eosinophils # (Auto) 0.04 K/uL 0.06 K/uL Basophils # (Auto) 0.02 K/uL 0.02 K/uL RDW Standard Deviation 43.8 fL 46.5 fL RDW Coefficient of Variation 14.1 % 14.4 % Immature Granulocyte % (Auto) 0.3 % 0.2 % Immature Granulocyte # (Auto) 0.05 K/uL 0.03 K/uL Prothrombin Time 10.9 SECONDS Prothromb Time International Ratio 1.0 Sodium Level 138 mmol/L 142 mmol/L Potassium Level 3.8 mmol/L 4.2 mmol/L Chloride Level 104 mmol/L 109 mmol/L Carbon Dioxide Level 27 mmol/L 31 mmol/L Anion Gap 7.0 mmol/L 2.0 mmol/L Blood Urea Nitrogen 8 mg/dl 6 mg/dl Creatinine 0.66 mg/dl 0.57 mg/dl Est Creatinine Clear Calc Drug Dose 73.7 ml/min 85.4 ml/min Estimated GFR () 105.9 111.2 Estimated GFR (Non- 91.4 95.9 BUN/Creatinine Ratio 12.1 10.9 Random Glucose 105 mg/dl 87 mg/dl Calcium Level 8.8 mg/dl 7.8 mg/dl Total Bilirubin 0.8 mg/dl 0.6 mg/dl Direct Bilirubin mg/dl 0.2 mg/dl Aspartate Amino Transf (AST/SGOT) 25 U/L 13 U/L Alanine Aminotransferase (ALT/SGPT) 22 U/L 13 U/L Alkaline Phosphatase 68 U/L 52 U/L Total Protein 7.6 gm/dl 6.3 gm/dl Albumin 3.5 gm/dl 2.8 gm/dl Lipase 130 U/L Chemistry Specimen Hemolysis Urine Color YELLOW Urine Appearance CLEAR Urine pH 6.5 Urine Specific [place] 1.006 Urine Protein NEG Urine Glucose (UA) NEG Urine Ketones NEG Urine Occult Blood TRACE Urine Nitrite NEG Urine Bilirubin NEG Urine Urobilinogen NEG Urine Leukocyte Esterase NEG Urine WBC (Auto) 0 /hpf Urine RBC (Auto) 0-4 /hpf Urine Hyaline Casts (Auto) 0 /lpf Urine Epithelial Cells (Auto) 5-10 /lpf Urine Bacteria (Auto) NEG Magnesium Level 3.1 mg/dl Impression Patient is a 66 year old female with left lower quadrant pain, leukocytosis and abnormal CT imaging consistent with acute sigmoid diverticulitis as well as colonic dilation and biliary ductal dilation without obstructive symptoms and normal liver panel/lipase. Plan 1. Acute diverticulitis and colonic dilation: Clear liquid diet with advancement to low residue as tolerated. Continue Cipro and Flagyl x 10 days. Outpatient colonoscopy to be arranged in 8 weeks. Supportive care with analgesics. 2. CBD and pancreatic ductal dilation of unclear significance: Continue to trend liver panel while inpatient. Outpatient MRCP in 3-4 weeks upon completion of antibiotic therapy. Avoid alcohol and hepatotoxins. 3. Chronic constipation: Once acute diverticulitis has resolved, resume a high fiber diet and start Metamucil 1 tbsp daily in 8 ounces of water at bedtime. Stool softeners or MiraLAX daily as needed. Ensure adequate fluid intake. 4. Follow up: Return to GI clinic after MRI imaging to be arranged prior to discharge or sooner if new or worsening symptoms. Thank you for allowing us to participate in the care of this pleasant patient. If you have any questions or concerns, please do not hesitate to contact us. Agree with LES Villagomez as above Abd: Soft, Tender LLQ, ND, +BS Continue current therapy Colonoscopy and MRCP as outpatient
[2017-01-04] MEDS: KETOROLAC TROMETHAMINE 15 MG/ML VIAL IV PRN ×2 (11:12→17:51)
--- NOTE | 2017-01-04 13:22 | Hospitalist Progress Note ---
Hospitalist Progress Note Date of Service Jan 04, 2017. (Anh Brown PA-C) Subjective Pt evaluation today including: conversation w/ patient, conversation w/ family , physical exam, chart review, lab review, review of studies, review of inpatient medication list Patient seen and evaluated. Continues to have diffuse abd. pain mostly of the LLQ. Pain is currently adequately controlled but is waxing and waning in intensity. Had an intolerance to Morphine and is tolerated Toradol well. She attempted clear liquids with some minimal increase in abdominal pain. Leukocytosis is improving and no new complaints verbalized. Family at bedside and updated on current plan. Constitutional: No chills, No fever Respiratory: No shortness of breath Cardiovascular: No chest pain Abdomen: + constipation (intermittent), + nausea, + pain (LLQ), No diarrhea , No vomiting Musculoskeletal: No calf pain, No swelling Female : No dysuria Skin: No rash (Anh Brown PA-C) Medications Current Inpatient Medications Medications (Trade) Dose Ordered Sig/[place] Route Start Time Stop Time Status Last Admin Dose Admin Ioversol 116 ml 116 ml UD PRN IV 01/03/17 18:15 01/07/17 18:14 Promethazine HCl/ Sodium Chloride (Phenergan Inj/ Nss 50ml) 50.5 ml @ 204 mls/hr Q6H PRN IV 01/03/17 20:45 02/02/17 20:44 Enoxaparin Sodium (Lovenox Inj) 40 mg Q24H SQ 01/04/17 09:00 02/03/17 08:59 01/04/17 07:46 40 MG Acetaminophen (Tylenol Tab) 650 mg Q4H PRN PO 01/03/17 21:00 02/02/17 20:59 Ondansetron HCl 4 mg 4 mg Q6H PRN IV 01/03/17 21:00 02/02/17 20:59 Ciprofloxacin/ Dextrose 400 mg/ Prmx 200 ml @ 100 mls/hr Q12H IV 01/04/17 08:00 01/14/17 07:59 01/04/17 07:36 100 MLS/HR Metronidazole/Prmx (Flagyl / Nss/ Premixed Nss) 100 ml @ 100 mls/hr Q8H IV 01/03/17 22:00 01/13/17 21:59 01/04/17 05:38 100 MLS/HR Ketorolac Tromethamine (Toradol Inj) 15 mg Q6H PRN IV 01/03/17 21:00 01/08/17 20:59 01/04/17 11:12 15 MG Hydromorphone HCl 0.5 mg 0.5 mg Q4 PRN IV 01/03/17 21:00 01/17/17 20:59 Potassium Chloride/Sodium Chloride (1/2 Nss + 20meq KCl 1000ml) 1,000 ml @ 100 mls/hr Q10H IV 01/03/17 22:30 02/02/17 22:29 01/04/17 07:46 100 MLS/HR Nicotine (Nicoderm Cq 14MG Patch) 1 patch QAM TD 01/04/17 09:00 02/03/17 08:59 01/04/17 07:45 1 PATCH Miscellaneous (Remove Nicoderm Patch) 1 ea HS N/A 01/04/17 21:00 02/03/17 20:59 (Anh Brown, PA-C) Objective Vital Signs Date Time Temp Pulse Resp B/P Pulse Ox O2 Delivery O2 Flow Rate FiO2 01/04/17 11:08 93 Room Air 01/04/17 10:09 95 Room Air 01/04/17 08:21 36.5 92 18 110/78 95 Room Air 01/04/17 07:44 93 Nasal Cannula 2.0 01/04/17 04:05 91 Nasal Cannula 3.0 01/04/17 04:05 77 16 103/66 80 Room Air 01/04/17 00:15 Nasal Cannula 2.0 01/03/17 23:40 36.8 77 16 96/59 96 Nasal Cannula 3.0 01/03/17 21:45 36.7 87 16 133/77 92 Nasal Cannula 2.0 01/03/17 21:33 87 18 117/80 97 Nasal Cannula 2.0 01/03/17 20:08 96 16 118/88 96 Nasal Cannula 2.0 01/03/17 19:14 94 16 118/88 94 Room Air 01/03/17 17:35 93 18 96 Room Air 01/03/17 17:01 107 01/03/17 15:49 36.4 112 20 142/96 96 Room Air (Anh Brown PA-C) Physical Exam General Appearance: WD/WN, no apparent distress Eyes: sclerae normal ENT: hearing grossly normal Neck: supple, no JVD, trachea midline Respiratory/Chest: no respiratory distress, no accessory muscle use, + wheezing (scattered intermittent wheeze that clears with cough and continued breathing) Cardiovascular: regular rate, rhythm, no gallop, no murmur Abdomen: normal bowel sounds, soft, + tenderness (worse in LLQ; no guarding/ rigidity - neg acute abdomen) Extremities: no pedal edema, no calf tenderness Neurologic/Psychiatric: alert, oriented x 3 Skin: normal color, warm/dry (Anh Brown PA-C) Laboratory Results Last 24 Hours Test 01/03/17 16:25 01/03/17 16:55 01/04/17 06:15 White Blood Count 17.29 K/uL 13.06 K/uL Red Blood Count 5.58 M/uL 4.81 M/uL Hemoglobin 16.9 g/dL 14.5 g/dL Hematocrit 47.8 % 42.2 % Mean Corpuscular Volume 85.7 fL 87.7 fL Mean Corpuscular Hemoglobin 30.3 pg 30.1 pg Mean Corpuscular Hemoglobin Concent 35.4 g/dl 34.4 g/dl Platelet Count 208 K/uL 185 K/uL Mean Platelet Volume 9.8 fL 9.4 fL Neutrophils (%) (Auto) 83.4 % 73.2 % Lymphocytes (%) (Auto) 11.7 % 19.0 % Monocytes (%) (Auto) 4.3 % 6.9 % Eosinophils (%) (Auto) 0.2 % 0.5 % Basophils (%) (Auto) 0.1 % 0.2 % Neutrophils # (Auto) 14.41 K/uL 9.57 K/uL Lymphocytes # (Auto) 2.03 K/uL 2.48 K/uL Monocytes # (Auto) 0.74 K/uL 0.90 K/uL Eosinophils # (Auto) 0.04 K/uL 0.06 K/uL Basophils # (Auto) 0.02 K/uL 0.02 K/uL RDW Standard Deviation 43.8 fL 46.5 fL RDW Coefficient of Variation 14.1 % 14.4 % Immature Granulocyte % (Auto) 0.3 % 0.2 % Immature Granulocyte # (Auto) 0.05 K/uL 0.03 K/uL Prothrombin Time 10.9 SECONDS Prothromb Time International Ratio 1.0 Sodium Level 138 mmol/L 142 mmol/L Potassium Level 3.8 mmol/L 4.2 mmol/L Chloride Level 104 mmol/L 109 mmol/L Carbon Dioxide Level 27 mmol/L 31 mmol/L Anion Gap 7.0 mmol/L 2.0 mmol/L Blood Urea Nitrogen 8 mg/dl 6 mg/dl Creatinine 0.66 mg/dl 0.57 mg/dl Est Creatinine Clear Calc Drug Dose 73.7 ml/min 85.4 ml/min Estimated GFR () 105.9 111.2 Estimated GFR (Non- 91.4 95.9 BUN/Creatinine Ratio 12.1 10.9 Random Glucose 105 mg/dl 87 mg/dl Calcium Level 8.8 mg/dl 7.8 mg/dl Total Bilirubin 0.8 mg/dl 0.6 mg/dl Direct Bilirubin mg/dl 0.2 mg/dl Aspartate Amino Transf (AST/SGOT) 25 U/L 13 U/L Alanine Aminotransferase (ALT/SGPT) 22 U/L 13 U/L Alkaline Phosphatase 68 U/L 52 U/L Total Protein 7.6 gm/dl 6.3 gm/dl Albumin 3.5 gm/dl 2.8 gm/dl Lipase 130 U/L Chemistry Specimen Hemolysis Urine Color YELLOW Urine Appearance CLEAR Urine pH 6.5 Urine Specific [place] 1.006 Urine Protein NEG Urine Glucose (UA) NEG Urine Ketones NEG Urine Occult Blood TRACE Urine Nitrite NEG Urine Bilirubin NEG Urine Urobilinogen NEG Urine Leukocyte Esterase NEG Urine WBC (Auto) 0 /hpf Urine RBC (Auto) 0-4 /hpf Urine Hyaline Casts (Auto) 0 /lpf Urine Epithelial Cells (Auto) 5-10 /lpf Urine Bacteria (Auto) NEG Magnesium Level 3.1 mg/dl (Anh Brown, RICHC) Assessment and Plan This patient is a 66-year-old female with a history of osteoporosis, allergies, and migraine headaches, who presents with left lower quadrant abdominal pain, with a significant leukocytosis-found to have acute sigmoid diverticulitis without abscess or perforation on CT of the abdomen and pelvis. Acute Sigmoid Diverticulitis - Opioid-Induced N/V - Incidential Dilated CBD - Normal LFTS and Pancreatic Enzymes - Ciprofloxacin 400 mg IV Q12H and Flagyl 500 mg IV Q8H - 1/2 NSS + 20 mEq KCL at 100 mL/hr - Toradol 15 mg IV Q6H PRN and Dilaudid 0.5 mg IV Q4H PRN - Clear liquids and advance as tolerated - low residual - GI Following - recommendations appreciated -- Abx x 10 days -- O/P Colonoscopy in 8 weeks and MRCP 3-4 weeks -- Avoid alcohol and hepatotoxins -- After resolution - high fiber diet for constipation with Metamucil 1 tbsp daily Current Smoker-Encouraged Cessation -Nicotine patch will be provided Osteoporosis: STABLE - Restart Fosamax plus D as an outpatient DVT Prophylaxis: SCDs and Lovenox 40 mg [place] daily Code Status: FULL RESUSCITATION Disposition: - Possible D/C 1-2 days if tolerating diet and pain control - GI Clinic F/U Continued [facility] stay due to: inadequate po fluid intake Discharge planning: home (Anh Brown, PADollyC) Pt seen and examined and agree with physician education reporter note. Continue with IV antibiotics. Follow up on blood and sputum cultures Appreciate GI input. OP colonoscopy in 4 weeks. OP MRCP. (Felix Crowder M.D.)
[2017-01-05] MEDS: SODIUM CHLOR 0.45% + 20MEQ KCL 1,000 ML IV SCH ×2 (06:12→14:35)
[2017-01-05] MEDS: METRONIDAZOLE / NSS 500 MG in PREMIXED NSS 100 ML IV SCH ×3 (06:12→23:07)
[2017-01-05] MEDS: KETOROLAC TROMETHAMINE 15 MG/ML VIAL IV PRN ×3 (06:13→23:15)
[2017-01-05 07:47] LABS: MEAN CORPUSCULAR HEMOGLOBIN 28.9 pg (25-34); MEAN CORPUSCULAR HGB CONC 33.2 g/dl (32-36); MEAN PLATELET VOLUME 9.6 fL (7.4-10.4); PLATELET COUNT 180 K/uL (130-400); RED BLOOD COUNT 4.71 M/uL (4.2-5.4); WHITE BLOOD COUNT 10.95 K/uL (4.8-10.8)
[2017-01-05 07:52] VITALS: BP 153/93; PULSE 85; TEMP 36.9; O2SAT 95
[2017-01-05 08:14] LABS: BUN/CREATININE RATIO 8.4 (10-20); CALCIUM 7.6 mg/dl (8.5-10.1); CREATININE 0.57 mg/dl (0.60-1.20); POTASSIUM 4.5 mmol/L (3.5-5.1)
[2017-01-05 08:17] LABS: ALB/GLOB RATIO 0.8 (0.9-2)
[2017-01-05] MEDS: ENOXAPARIN 40 MG/0.4 ML SYR SQ SCH (09:39)
[2017-01-05] MEDS: NICOTINE 14 MG/24 HR TDSY TD SCH (09:40)
[2017-01-05] MEDS: CIPROFLOXACIN / D5W 400 MG in PREMIXED IN D5W 200 ML IV SCH ×2 (09:40→20:28)
--- NOTE | 2017-01-05 13:18 | Hospitalist Progress Note ---
Hospitalist Progress Note Date of Service Jan 05, 2017. Subjective Pt evaluation today including: conversation w/ patient, physical exam, chart review Voiding: no voiding problems Constitutional: No chills, No fatigue, No fever, No problem reported, No see HPI, No sweats, No weakness, No weight loss Eyes: No diplopia, No discharge, No eye pain, No problem reported, No redness, No see HPI, No worsening of vision ENT: No dental problems, No hearing loss, No nasal symptoms, No problem reported, No see HPI, No sore throat, No tinnitus, No trouble swallowing, No unusual epistaxis Respiratory: No cough, No dyspnea at rest, No dyspnea on exertion, No hemoptysis, No problem reported, No see HPI, No shortness of breath, No sputum, No wheezing Cardiovascular: No PND, No chest pain, No claudication, No edema, No orthopnea, No palpitations, No problem reported, No see HPI Abdomen: + diarrhea Objective Vital Signs Date Time Temp Pulse Resp B/P Pulse Ox O2 Delivery O2 Flow Rate FiO2 01/05/17 07:52 36.9 85 18 153/93 95 Room Air 01/04/17 23:16 37.2 99 16 107/68 91 Room Air 01/04/17 21:00 Room Air 01/04/17 15:11 36.7 67 18 118/78 92 Room Air Physical Exam General Appearance: WD/WN, no apparent distress Eyes: normal inspection, PERRL ENT: normal ENT inspection, hearing grossly normal, TMs normal Neck: supple, no adenopathy, thyroid normal, no JVD Respiratory/Chest: chest non-tender, lungs clear, normal breath sounds Cardiovascular: regular rate, rhythm, no edema, no gallop Abdomen: normal bowel sounds, non tender, soft Extremities: normal range of motion, non-tender, normal inspection, no calf tenderness Neurologic/Psychiatric: manager test II-XII nml as tested, alert Lymphatic: no adenopathy Laboratory Results Last 24 Hours Test 01/05/17 07:19 White Blood Count 10.95 K/uL Red Blood Count 4.71 M/uL Hemoglobin 13.6 g/dL Hematocrit 41.0 % Mean Corpuscular Volume 87.0 fL Mean Corpuscular Hemoglobin 28.9 pg Mean Corpuscular Hemoglobin Concent 33.2 g/dl RDW Standard Deviation 45.0 fL RDW Coefficient of Variation 14.1 % Platelet Count 180 K/uL Mean Platelet Volume 9.6 fL Sodium Level 139 mmol/L Potassium Level 4.5 mmol/L Chloride Level 107 mmol/L Carbon Dioxide Level 28 mmol/L Anion Gap 4.0 mmol/L Blood Urea Nitrogen 5 mg/dl Creatinine 0.57 mg/dl Est Creatinine Clear Calc Drug Dose 85.4 ml/min Estimated GFR () 111.2 Estimated GFR (Non- 95.9 BUN/Creatinine Ratio 8.4 Random Glucose 95 mg/dl Calcium Level 7.6 mg/dl Total Bilirubin 0.5 mg/dl Aspartate Amino Transf (AST/SGOT) 12 U/L Alanine Aminotransferase (ALT/SGPT) 15 U/L Alkaline Phosphatase 53 U/L Total Protein 6.5 gm/dl Albumin 2.8 gm/dl Globulin 3.7 gm/dl Albumin/Globulin Ratio 0.8 Lipase 108 U/L Assessment and Plan Sigmoid diverticulitis. Continue with IV antibiotics (Cipro and flagyl) Follow up on blood and sputum cultures Advance diet to full liqs Appreciate GI input. OP colonoscopy in 4 weeks. OP MRCP.
[2017-01-05 15:12] VITALS: BP 137/84; PULSE 69; TEMP 36.9; O2SAT 96
[2017-01-05 23:04] VITALS: BP 161/99; PULSE 86; TEMP 36.8; O2SAT 94
[2017-01-06] MEDS: SODIUM CHLOR 0.45% + 20MEQ KCL 1,000 ML IV SCH (00:42)
[2017-01-06] MEDS: METRONIDAZOLE / NSS 500 MG in PREMIXED NSS 100 ML IV SCH (06:22)
[2017-01-06 07:17] LABS: BASO % 0.1 %; BASO ABS # 0.01 K/uL (0-0.2); COMPLETE YES; EOS % 1.3 %; IG% 0.3 %; LYMPH % 19.1 %; LYMPH ABS # 1.51 K/uL (1.2-3.4); MEAN CELL VOLUME 86.9 fL (80-100); MEAN CORPUSCULAR HEMOGLOBIN 28.9 pg (25-34); MEAN CORPUSCULAR HGB CONC 33.3 g/dl (32-36); MEAN PLATELET VOLUME 9.8 fL (7.4-10.4); MONO % 6.7 %; NEUT % 72.5 %; PLATELET COUNT 193 K/uL (130-400); RED BLOOD COUNT 4.95 M/uL (4.2-5.4); WHITE BLOOD COUNT 7.92 K/uL (4.8-10.8)
[2017-01-06 07:41] VITALS: BP 159/98; PULSE 77; TEMP 36.8; O2SAT 97
[2017-01-06 07:45] LABS: BUN/CREATININE RATIO 9.6 (10-20); CALCIUM 8.1 mg/dl (8.5-10.1); CREATININE 0.55 mg/dl (0.60-1.20); POTASSIUM 4.5 mmol/L (3.5-5.1)
[2017-01-06] MEDS: ENOXAPARIN 40 MG/0.4 ML SYR SQ SCH (09:29)
[2017-01-06] MEDS: NICOTINE 14 MG/24 HR TDSY TD SCH (09:30)
[2017-01-06] MEDS: CIPROFLOXACIN / D5W 400 MG in PREMIXED IN D5W 200 ML IV SCH (11:09)
[2017-01-06] MEDS ORDERED: CPR500 PO (14:07)
[2017-01-06] MEDS ORDERED: MTR500 PO (14:07)
[2017-01-06] MEDS ORDERED: NCDT14 TD (14:07)
--- NOTE | 2017-01-06 14:09 | Discharge Instructions ---
Discharge Instructions Date of Service Jan 06, 2017. Admission Reason for Admission: Acute Diverticulitis Discharge Discharge Diagnosis / Problem: Acute sigmoid diverticulitis Discharge Goals Goal(s): Learn about illness Activity Recommendations Activity Limitations: resume your previous activity Lifting Limitations: none Exercise/Sports Limitations: none May Resume Sexual Activity: when tolerated Shower/Bathe: no limitations Driving or Machine Use: no limitations . Instructions / Follow-Up Instructions / Follow-Up Follow up with GI in one to two weeks. Current Hospital Diet Patient's current hospital diet: Low Residue Diet Discharge Diet Recommended Diet: N/A (Low residue diet) Pending Studies Studies pending at discharge: yes (MRCP and Colonoscopy) List of pending studies: MRCP and colonoscopy Laboratory Results 01/06/17 07:05 Red Blood Count 4.95, Mean Corpuscular Volume 86.9, Mean Corpuscular Hemoglobin 28.9, Mean Corpuscular Hemoglobin Concent 33.3, Mean Platelet Volume 9.8, Neutrophils (%) (Auto) 72.5, Lymphocytes (%) (Auto) 19.1, Monocytes (%) (Auto) 6.7, Eosinophils (%) (Auto) 1.3, Basophils (%) (Auto) 0.1, Neutrophils # (Auto) 5.75, Lymphocytes # (Auto) 1.51, Monocytes # (Auto) 0.53, Eosinophils # (Auto) 0.10, Basophils # (Auto) 0.01 01/06/17 07:05 Test 01/03/17 16:25 01/03/17 16:55 01/04/17 06:15 01/05/17 07:19 Prothrombin Time 10.9 SECONDS (9.0-12.0) Prothromb Time International Ratio 1.0 (0.9-1.1) Chemistry Specimen Hemolysis Urine Color YELLOW Urine Appearance CLEAR (CLEAR) Urine pH 6.5 (4.5-7.5) Urine Specific [place] 1.006 (1.000-1.030) Urine Protein NEG (NEG) Urine Glucose (UA) NEG (NEG) Urine Ketones NEG (NEG) Urine Occult Blood TRACE (NEG) Urine Nitrite NEG (NEG) Urine Bilirubin NEG (NEG) Urine Urobilinogen NEG (NEG) Urine Leukocyte Esterase NEG (NEG) Urine WBC (Auto) 0 /hpf (0-5) Urine RBC (Auto) 0-4 /hpf (0-4) Urine Hyaline Casts (Auto) 0 /lpf (0-5) Urine Epithelial Cells (Auto) 5-10 /lpf (0-5) Urine Bacteria (Auto) NEG (NEG) Magnesium Level 3.1 mg/dl (1.8-2.4) Direct Bilirubin 0.2 mg/dl (0-0.2) Total Bilirubin 0.5 mg/dl (0.2-1) Aspartate Amino Transf (AST/SGOT) 12 U/L (15-37) Alanine Aminotransferase (ALT/SGPT) 15 U/L (12-78) Alkaline Phosphatase 53 U/L (45-117) Total Protein 6.5 gm/dl (6.4-8.2) Albumin 2.8 gm/dl (3.4-5.0) Globulin 3.7 gm/dl (2.5-4.0) Albumin/Globulin Ratio 0.8 (0.9-2) Lipase 108 U/L (73-393) Test 01/06/17 07:05 White Blood Count 7.92 K/uL (4.8-10.8) Red Blood Count 4.95 M/uL (4.2-5.4) Hemoglobin 14.3 g/dL (12.0-16.0) Hematocrit 43.0 % (37-47) Mean Corpuscular Volume 86.9 fL (80-100) Mean Corpuscular Hemoglobin 28.9 pg (25-34) Mean Corpuscular Hemoglobin Concent 33.3 g/dl (32-36) Platelet Count 193 K/uL (130-400) Mean Platelet Volume 9.8 fL (7.4-10.4) Neutrophils (%) (Auto) 72.5 % Lymphocytes (%) (Auto) 19.1 % Monocytes (%) (Auto) 6.7 % Eosinophils (%) (Auto) 1.3 % Basophils (%) (Auto) 0.1 % Neutrophils # (Auto) 5.75 K/uL (1.4-6.5) Lymphocytes # (Auto) 1.51 K/uL (1.2-3.4) Monocytes # (Auto) 0.53 K/uL (0.11-0.59) Eosinophils # (Auto) 0.10 K/uL (0-0.5) Basophils # (Auto) 0.01 K/uL (0-0.2) RDW Standard Deviation 43.7 fL (36.4-46.3) RDW Coefficient of Variation 13.7 % (11.5-14.5) Immature Granulocyte % (Auto) 0.3 % Immature Granulocyte # (Auto) 0.02 K/uL (0.00-0.02) Anion Gap 4.0 mmol/L (3-11) Est Creatinine Clear Calc Drug Dose 88.5 ml/min Estimated GFR () 112.5 Estimated GFR (Non- 97.1 BUN/Creatinine Ratio 9.6 (10-20) Calcium Level 8.1 mg/dl (8.5-10.1) Medical Emergencies . Who to Call and When: Medical Emergencies: If at any time you feel your situation is an emergency, please call 911 immediately. . Non-Emergent Contact Non-Emergency issues call your: Primary Care Provider Call Non-Emergent contact if: you have a fever, your pain is not controlled . Past History Medical & Surgical History: (1) Acute diverticulitis . "Provider Documentation" section prepared by Felix Crowder. VTE Core Measure Inpt VTE Proph given/why not?: SCD's
--- NOTE | 2017-01-06 14:13 | Discharge Summary ---
Discharge Summary Date of Service Jan 06, 2017. Discharge Summary Admission Date: Jan 03, 2017 at 21:04 Discharge Date: Jan 06, 2017 Discharge Disposition: Home Principal Diagnosis: Acute sigmoid diverticulitis Problems/Secondary Diagnoses: Tobacco use Procedures: DIAGNOSTIC IMAGING [~ rep ct add3]] CT OF THE ABDOMEN AND PELVIS WITH CONTRAST CLINICAL HISTORY: Abdominal pain and constipation. COMPARISON STUDY: None. TECHNIQUE: Following IV administration of 116 mL of Optiray-320, axial images of the abdomen and pelvis were obtained from the lung bases to the proximal femurs. Images were reviewed in the axial, sagittal, and coronal planes. IV contrast was administered without complication. CT DOSE: 270.97 mGy.cm FINDINGS: The liver, spleen, adrenal glands are unremarkable. There is no hydronephrosis. There is a 1 cm cyst within the midpole of the left kidney. There is no hydronephrosis. There is mild dilatation of the main pancreatic duct which measures 4 mm in caliber. There is mild dilatation of the common bile duct which measures 9 mm. No pancreatic mass is identified by CT. There is no pneumatosis, free air or portal venous gas. The cecum, ascending colon, transverse colon are mildly dilated and fluid-filled. No discrete transition point is identified. There is extensive sigmoid diverticulosis. There is minimal fluid and infiltration adjacent to the sigmoid colon. There is no free air or abscess. No lymphadenopathy is present. Skeletal structures are unremarkable. There is extensive atherosclerotic plaque of the abdominal aorta. There is no aneurysm of the abdominal aorta. IMPRESSION: 1. Findings suggestive of mild acute sigmoid diverticulitis. No free air or abscess. 2. Mildly dilated, fluid-filled cecum, ascending colon and transverse colon without transition point. However, a follow-up nonemergent colonoscopy is suggested to exclude the unlikely possibility of a colonic lesion. No convincing colonic obstruction on this exam. 3. Mild dilatation of the common bile duct and the main pancreatic duct. No pancreatic mass identified. This is of questionable significance and could be correlated with obstructive liver function tests. Electronically signed by: Yobani Hunter M.D. 01/03/2017 6:29 PM Dictated Date/Time: 01/03/2017 6:20 PM Consultations: GI Medication Reconciliation New Medications: Ciprofloxacin (Ciprofloxacin HCl) 500 Mg Tab 500 MG PO BID for 14 Days, #28 TAB Metronidazole (Metronidazole) 500 Mg Tab 500 MG PO TID for 14 Days, #42 TAB Nicotine (Nicotine) 1 Patch Tdsy 1 PATCH TD QAM for 14 Days, #14 Continued Medications: Acetaminophen (Tylenol) 500 Mg Tab 1000 MG PO DIRECTED, TAB Alendronate/Cholecalciferol (Fosamax+D 70MG/2800 Iu) 70 Mg Tab 1 TABLET PO WK, TAB Calcium/Vitamin D (Os-Sean 500 Plus D) Tab 1 TAB PO DAILY, TAB Fluticasone Propionate (Nasal) (Flonase Allergy Relief) 50 Mcg/Act Spr 2 [place]AY BARB QAM Simethicone (Gas-X) 80 Mg Chw 80 MG PO DIRECTED Discontinued Medications: Lecgtgg-Avayxkshxsloy-Fggkcqqc (Excedrin Migraine) 1 Tab Tab 1 TAB PO DIRECTED Discharge Exam This patient is a 66-year-old female with a history of osteoporosis, allergies, and migraine headaches, who presents with left lower quadrant abdominal pain that started 1 day prior to admission. It was a 10 out of 10 in severity and was fairly constant but coming and going in waves at times. She was afebrile and denied fevers chills or sweats at home. She denied nausea vomiting or diarrhea at home, however since arriving in the ER and getting morphine, she has been persistently having nausea and vomiting. She was found to have a white blood cell count of 17,000, and a CT scan of the abdomen and pelvis showed sigmoid diverticulitis as well as a mildly dilated common bile duct. She had normal LFTs and normal lipase. Her electrolytes were normal as well. She was afebrile but was tachycardic upon arrival. She was given IV Zosyn and Cipro as well as morphine and Zofran in the ER. She was also hydrated with intravenous fluids. She had a colonoscopy about one year ago which showed several smaller polyps in the rectum and descending colon and one larger 11 mm polyp in the sigmoid colon which was resected. These were all hyperplastic polyps and one tubular adenoma. She was also noted to have sigmoid diverticulosis at that time. She will be admitted for acute diverticulitis. Pt received IV fluids and IV antibiotics (Ciprofloxacin, Flagyl) and her symptoms improved. At the time of discharge the patient was able to tolerate a oral diet (low residue) and will follow up with GI in one to two weeks. 1. Acute diverticulitis and colonic dilation: Clear liquid diet with advancement to low residue as tolerated. Continue Cipro and Flagyl x 10 days. Outpatient colonoscopy to be arranged in 8 weeks. Supportive care with analgesics. 2. CBD and pancreatic ductal dilation of unclear significance: Continue to trend liver panel while inpatient. Outpatient MRCP in 3-4 weeks upon completion of antibiotic therapy. Avoid alcohol and hepatotoxins. 3. Chronic constipation: Once acute diverticulitis has resolved, resume a high fiber diet and start Metamucil 1 tbsp daily in 8 ounces of water at bedtime. Stool softeners or MiraLAX daily as needed. Ensure adequate fluid intake. 4. Follow up: Return to GI clinic after MRI imaging to be arranged prior to discharge or sooner if new or worsening symptoms. Hospital Course Sigmoid diverticulitis. Continue with IV antibiotics (Cipro and flagyl) Follow up on blood and sputum cultures Advance diet to full liqs Appreciate GI input. OP colonoscopy in 4 weeks. OP MRCP. Total Time Spent: Greater than 30 minutes This includes examination of the patient, discharge planning, medication reconciliation, and communication with other providers. Discharge Instructions Please refer to the electronic Patient Visit Report (Discharge Instructions) for additional information. Follow-Up GI in 1 to 2 weeks
[2017-01-06 14:46] VITALS: BP 159/98; PULSE 77; TEMP 36.8; O2SAT 97
[2017-01-06] MEDS ORDERED: METRONIDAZOLE 500 MG TAB PO SCH (21:00)
[2017-01-06] MEDS ORDERED: CIPROFLOXACIN 500 MG TAB PO SCH (21:00)
[2017-02-25] MEDS ORDERED: POLY335019 PO (08:19)
[2017-05-06] MEDS ORDERED: MTR500 PO (12:38)
[2017-05-06] MEDS ORDERED: NICO14DI5 TD (12:38)
[2017-05-06] MEDS ORDERED: CIPR-255 PO (12:38)
[2017-05-06] MEDS ORDERED: LCTX PO (12:38)
[2017-06-28] MEDS ORDERED: CITA20TA4 PO (08:31)
[2017-06-28] MEDS ORDERED: ACET-1222 PO (08:31)
[2017-06-28] MEDS ORDERED: CALC-388 PO (08:31)
[2017-06-28] MEDS ORDERED: FLUT50SP45 (08:31)
[2017-06-28] MEDS ORDERED: CETI10TA84 PO (08:31)
[2017-06-28] MEDS ORDERED: OMEG10007 PO (08:31)
== END 2017-01-06 15:20 | disposition home or self-care (01) | DRG 392 ==
LOC: ENRESERVDT → ENRESERVTM → C.EDB 15:46 → C.MSN 21:04
PROVIDERS: ADMIT Family Medicine; ATTEND Internal Medicine
DX: K57.32 Diverticulitis of large intestine without perforation or abscess without bleeding (principal); M81.0 Age-related osteoporosis without current pathological fracture; G43.909 Migraine, unspecified, not intractable, without status migrainosus; Z86.010 Personal history of colon polyps; Z90.710 Acquired absence of both cervix and uterus; F17.210 Nicotine dependence, cigarettes, uncomplicated; Z88.5 Allergy status to narcotic agent; Z79.899 Other long term (current) drug therapy; Z79.82 Long term (current) use of aspirin; K59.00 Constipation, unspecified; D72.829 Elevated white blood cell count, unspecified; R11.2 Nausea with vomiting, unspecified; T40.2X5A Adverse effect of other opioids, initial encounter; J30.9 Allergic rhinitis, unspecified

== ENCOUNTER → 2017-01-25 | Outpatient (CLI) | payer OTHER ==
[~2017-01-25] MED LIST changes: +ACET-1222 PO; +ACET-1256 PO; +CALC-388 PO; +CALC500C70 PO; +CETI10TA84 PO; +CIPR-255 PO; +CITA20TA4 PO; +CPR500 PO; +CPR750 PO; +FLUC150T PO; +FLUT50SP45; +LCTX PO; +METR500T PO; +MTR500 PO; +NCDT14 TD; +NICO14DI5 TD; +OMEG10007 PO; +OXYC-57 PO; +POLY335019 PO; +SIME80CH PO; +TRAM-10 PO
--- NOTE | 2017-01-25 10:34 | DIAGNOSTIC IMAGING REPORT ---
MRCP HISTORY: R93.[address] of the [id number] TECHNIQUE: MRCP of the abdomen was performed according to standard department protocol without the use of contrast. COMPARISON STUDY: Abdomen and pelvis CT 01/03/2017. FINDINGS: There are 2 subcentimeter T2 hyperintense lesions within the liver with the largest measuring 6 mm. These favor cysts. The gallbladder, spleen, and adrenal glands are unremarkable. No hydronephrosis. A 7 mm T2 hyperintense lesion within the left kidney also favors a cyst. No retroperitoneal lymphadenopathy. Slightly prominent central intrahepatic bile ducts and common bile duct. The common bile duct measures up to 8 mm. This is slightly distended for age. However, there are no filling defects seen within the common bile duct. The distal main pancreatic duct is also borderline distended measuring 3.5 cm. No gallstones identified. IMPRESSION: Confirmation of the slightly prominent bile ducts and pancreatic duct as described above. However, no filling defects or strictures identified. Electronically signed by: Vinod Ambriz M.D. 01/25/2017 10:31 AM Dictated Date/Time: 01/25/2017 10:20 AM
== END | disposition home or self-care (01) ==
LOC: C.MRI 09:37
PROVIDERS: ATTEND Registered Nurse
DX: R93.5 Abnormal findings on diagnostic imaging of other abdominal regions, including retroperitoneum (principal)

== ENCOUNTER → 2017-03-05 | Day surgery (SDC) | payer OTHER ==
[2017-02-25 08:20] VITALS: Ht 156.2 cm; Wt 63.6 kg
[~2017-03-05] VITALS: Ht 156.2 cm; Wt 63.6 kg
[~2017-03-05] MED LIST changes: -ACET-1256 PO; -CPR500 PO; -FSMD/70 PO; +PROPOFOL IV EMULSION 10 MG/ML 20 ML VIAL IV ONE; +SODIUM CHLORIDE 0.9% 500ML 500 ML IV ONE
--- NOTE | 2017-03-05 08:43 | Endo History and Physical ---
History & Physical Date of Service: March 05, 2017. Chief Complaint: Recent diverticulitis and abnormal CT scan of the abdomen. Referring Physician: Dr. Ayala History of Present Illness 66 yo CF who presents for colonoscopy secondary to recent diverticulitis and abnormal CT scan of the abdomen. Past Medical History Osteoporosis, Seizure Disorder Past Surgical History Hx Cardiac Surgery: No Hx Internal Defibrillator: No Hx Pacemaker: No Hx Abdominal Surgery: Yes (JOSÉ LUIS, OOPHERECTOMY) Hx of Implantable Prosthesis: No Hx Post-Op Nausea and Vomiting: No Hx Cancer Surgery: No Hx Thoracic Surgery: No Hx Orthopedic: Yes (LEFT RCR) Hx Urinary Tract Surgery: No Family History None Social History Smoking Status: Current Some Day Smoker Hx Substance Use: No Hx Alcohol Use: Yes (OCCASIONALLY) Allergies Coded Allergies: Codeine (Verified Allergy, Mild, GI SYMPTOMS, 02/25/17) nauseated Morphine (Verified Adverse Reaction, Intermediate, nausea and vomiting, ) Current Medications Reported Home Medications Medications Dose Route/Sig Max Daily Dose Days Date Category Miralax (Polyethylene Glycol 3350) 1 Pow Pow 17 Gm PO QAM 02/25/17 Reported Nicotine 1 Patch Tdsy 1 Patch TD QAM 14 01/06/17 Rx Gas-X (Simethicone) 80 Mg Chw 80 Mg PO DIRECTED 01/03/17 Reported Os-Sean 500 Plus D (Calcium/Vitamin D) Tab 1 Tab PO QAM 01/03/17 Reported Flonase Allergy Relief (Fluticasone Propionate (Nasal)) 50 Mcg/Act Spr 2 [place] BARB QAM 01/10/16 Reported Vital Signs Weight (Kilograms): 63.64 Height (Feet): 5 Height (Inches): 1.5 Physical Exam General Appearance: WD/WN, no apparent distress Respiratory/Chest: Auscultation: breath sounds normal Cardiovascular: Heart Auscultation: RRR Abdomen: Bowel Sounds: normal Inspection & Palpation: soft, non-distended, no tenderness, guarding & rebound Assessment and Plan Assessment: 66 yo CF who presents for colonoscopy secondary to recent diverticulitis and abnormal CT scan of the abdomen. Plan: Proceed with colonoscopy.
--- NOTE | 2017-03-05 09:43 | Discharge Instructions ---
Endoscopy Patient Instructions Date / Procedure(s) Performed March 05, 2017. Colonoscopy Allergy Information Coded Allergies: Codeine (Verified Allergy, Mild, GI SYMPTOMS, 02/25/17) nauseated Morphine (Verified Adverse Reaction, Intermediate, nausea and vomiting, ) Discharge Date / Findings March 05, 2017. Lipoma in Ascending colon Diverticulosis Rectal polyp (not recovered) Internal hemorrhoids Medication Instructions OK to resume all medications today as prescribed Reported Home Medications Medications Dose Route/Sig Max Daily Dose Days Date Category Miralax (Polyethylene Glycol 3350) 1 Pow Pow 17 Gm PO QAM 02/25/17 Reported Nicotine 1 Patch Tdsy 1 Patch TD QAM 14 01/06/17 Rx Gas-X (Simethicone) 80 Mg Chw 80 Mg PO DIRECTED 01/03/17 Reported Os-Sean 500 Plus D (Calcium/Vitamin D) Tab 1 Tab PO QAM 01/03/17 Reported Flonase Allergy Relief (Fluticasone Propionate (Nasal)) 50 Mcg/Act Spr 2 [place] BARB QAM 01/10/16 Reported Provider Instructions Activity Restrictions - No exercising or heavy lifting for 24 hours. - Do not drink alcohol the day of the procedure. - Do not drive a car or operate machinery until the day after the procedure. - Do not make any important decisions or sign important papers in 24 hours after the procedure. Following Day: - Return to full activity which may include returning to work/school. Diet Start your diet with liquids and light foods (jello, soup, juice, toast). Then eat your usual diet if not nauseated. Treatment For Common After Affects For mild abdominal pain, bloating, or excessive gas: - Rest - Eat lightly - Lie on right side Follow-Up Information Follow-up with Dr. Ayala as scheduled Anesthesia Information What You Should Know You have had a procedure that required some medicine to reduce anxiety and discomfort. This treatment is called moderate sedation. After receiving the treatment, you may be sleepy, but you will be able to breathe on your own. The effects of the treatment may last for several hours. Follow these instructions along with Activity/Diet recommendations noted above: * Do NOT do anything where dizziness or clumsiness would be dangerous. * Rest quietly at home today, then you can be up and about tomorrow. * Have a responsible person stay with you the rest of today. * You may have had an I.V. today. If so, you may take the dressing off later today. Recommendations Call your doctor if: * Trouble breathing * Continuous vomiting for more than 24 hours * Temperature above 101 degrees * Severe abdominal pain or bloating * Pain not relieved by pain medicine ordered * There is increased drainage or redness from any incision * A large amount of rectal bleeding greater than 2-3 tablespoons. (If you had a polyp/s removed or have hemorrhoids, a small amount of blood - from the rectum is to be expected.) * You have any unanswered questions or concerns. IN THE EVENT OF A SERIOUS EMERGENCY, GO TO THE NEAREST EMERGENCY ROOM Your discharge instructions were prepared by provider Vasquez Latif. Patient Instructions Signature Page Rsolyn Parra Patient (or Guardian) Signature/Date: I have read and understand the instructions given to me by my caregivers. Caregiver/RN/Doctor Signature/Date: The above-named patient and/or guardian has received patient instructions on this date. + Original Patient Signature Page (only) stays with chart. Please make copy for patient.
--- NOTE | 2017-03-05 09:54 | GI REPORT ---
Procedure Date: 03/05/2017 9:09 AM Procedure: Colonoscopy Indications: Abnormal CT of the GI tract, Follow-up of diverticulitis Medicines: Monitored Anesthesia Care Complications: No immediate complications. Estimated Blood Loss: Estimated blood loss: none. Procedure: Pre-Anesthesia Assessment: - Prior to the procedure, a History and Physical was performed, and patient medications and allergies were reviewed. The patient's tolerance of previous anesthesia was also reviewed. The risks and benefits of the procedure and the sedation options and risks were discussed with the patient. All questions were answered, and informed consent was obtained. Prior Anticoagulants: The patient has taken no previous anticoagulant or antiplatelet agents. ASA Grade Assessment: II - A patient with mild systemic disease. After reviewing the risks and benefits, the patient was deemed in satisfactory condition to undergo the procedure. After I obtained informed consent, the scope was passed under direct vision. Throughout the procedure, the patient's blood pressure, pulse, and oxygen saturations were monitored continuously. The Scope was introduced through the anus and advanced to the terminal ileum. The colonoscopy was performed without difficulty. The patient tolerated the procedure well. The quality of the bowel preparation was good. The terminal ileum, the ileocecal valve and the appendiceal orifice were photographed. Findings: There was a medium-sized lipoma, 15 mm in diameter, in the ascending colon. Multiple small-mouthed diverticula were found in the sigmoid colon. A 4 mm polyp was found in the rectum. The polyp was sessile. The polyp was removed with a hot snare. Resection was complete, but the polyp tissue was not retrieved. Internal hemorrhoids were found during retroflexion. The hemorrhoids were small. Impression: - Medium-sized lipoma in the ascending colon. - Diverticulosis in the sigmoid colon. - One 4 mm polyp in the rectum, removed with a hot snare. Complete resection. Polyp tissue not retrieved. - Internal hemorrhoids. Recommendation: - Resume previous diet. - Continue present medications. - Repeat colonoscopy in 5 years for surveillance. - Return to primary care physician as previously scheduled. Vasquez Latif DO 03/05/2017 9:53:05 AM This report has been signed electronically. Note Initiated On: 03/05/2017 9:09 AM I attest to the content of the Intraoperative Record and orders documented therein, exceptions below
--- NOTE | 2017-03-05 10:03 | Anesthesiology Progress Note ---
Anesthesia Post Op Note Date & Time March 05, 2017 at 10:03 Vital Signs Pain Intensity: 0 Vital Signs Past 12 Hours Date Time Temp Pulse Resp B/P Pulse Ox O2 Delivery O2 Flow Rate FiO2 03/05/17 09:58 91 18 139/88 98 Room Air 03/05/17 09:43 36.5 96 18 121/102 96 Room Air 03/05/17 08:58 36.1 98 18 103/86 95 Room Air Notes Mental Status: alert / awake / arousable, participated in evaluation Pt Amnestic to Procedure: Yes Nausea / Vomiting: adequately controlled Pain: adequately controlled Airway Patency, RR, SpO2: stable & adequate BP & HR: stable & adequate Hydration State: stable & adequate Anesthetic Complications: no major complications apparent
[2017-03-05 10:14] VITALS: BP 136/86; PULSE 87; O2SAT 98
== END | disposition home or self-care (01) ==
LOC: C.GI 08:07
PROVIDERS: ATTEND Internal Medicine
DX: R93.3 Abnormal findings on diagnostic imaging of other parts of digestive tract (principal); D17.79 Benign lipomatous neoplasm of other sites; K57.30 Diverticulosis of large intestine without perforation or abscess without bleeding; K62.1 Rectal polyp; K64.8 Other hemorrhoids; Z98.890 Other specified postprocedural states; F17.200 Nicotine dependence, unspecified, uncomplicated; Z88.5 Allergy status to narcotic agent; G40.909 Epilepsy, unspecified, not intractable, without status epilepticus; Z68.26 Body mass index [BMI] 26.0-26.9, adult

== ENCOUNTER 2017-04-15 08:27 | Emergency (ER) | payer OTHER ==
[~2017-04-15] VITALS: Ht 157.5 cm; Wt 66.4 kg
[~2017-04-15 08:27] MED LIST changes: -ACET-1222 PO; -CALC-388 PO; -CETI10TA84 PO; -CIPR-255 PO; -CITA20TA4 PO; -CPR750 PO; -FLUC150T PO; -FLUT50SP45; -LCTX PO; -METR500T PO; -MTR500 PO; -NICO14DI5 TD; -OMEG10007 PO; -OXYC-57 PO; -PROPOFOL IV EMULSION 10 MG/ML 20 ML VIAL IV ONE; -SODIUM CHLORIDE 0.9% 500ML 500 ML IV ONE; -TRAM-10 PO
[2017-04-15 08:37] VITALS: TEMP 36.6; Ht 157.5 cm; Wt 66.4 kg
[2017-04-15] MEDS ORDERED: ONDANSETRON INJ 2 MG/ML 2 ML VIAL IV STA (09:00)
[2017-04-15] MEDS ORDERED: MoRPHine SULFATE 4 MG/ML 1 ML CARP\\VIAL IV STA (09:00)
[2017-04-15] MEDS ORDERED: SODIUM CHLORIDE 0.9% 1000ML 1,000 ML IV STA (09:00)
[2017-04-15 09:13] LABS: BASO % 0.1 %; BASO ABS # 0.01 K/uL (0-0.2); COMPLETE YES; EOS % 0.2 %; HEMATOCRIT 48.7 % (37-47); IG% 0.2 %; LYMPH % 14.4 %; LYMPH ABS # 1.83 K/uL (1.2-3.4); MEAN CELL VOLUME 86.7 fL (80-100); MEAN CORPUSCULAR HEMOGLOBIN 30.1 pg (25-34); MEAN CORPUSCULAR HGB CONC 34.7 g/dl (32-36); MEAN PLATELET VOLUME 9.9 fL (7.4-10.4); NEUT % 80.1 %; PLATELET COUNT 249 K/uL (130-400); RED BLOOD COUNT 5.62 M/uL (4.2-5.4); WHITE BLOOD COUNT 12.71 K/uL (4.8-10.8)
[2017-04-15 09:15] LABS: URINE APPEARANCE CLEAR (CLEAR); URINE BILIRUBIN NEG (NEG); URINE COLOR YELLOW; URINE NITRITE NEG (NEG); URINE PH 5.5 (4.5-7.5); URINE SPECIFIC GRAVITY 1.022 (1.000-1.030); UROBILINOGEN NEG (NEG); ZZUR CULT IF INDIC CLEAN CATCH NO
[2017-04-15] MEDS ORDERED: FENTANYL CITRATE INJ 50 MCG/1 ML 2 ML VIAL IV ONE (09:15)
[2017-04-15 09:23] LABS: MANUAL MICROSCOPIC REQUIRED? NO; REVIEW REQ? NO
[2017-04-15 09:45] LABS: BUN/CREATININE RATIO 19.6 (10-20); CALCIUM 8.9 mg/dl (8.5-10.1); CREATININE 0.63 mg/dl (0.60-1.20)
[2017-04-15] MEDS ORDERED: OPTIRAY 320 IV PRN (09:45)
[2017-04-15 09:48] LABS: ALB/GLOB RATIO 0.9 (0.9-2)
--- NOTE | 2017-04-15 13:02 | DIAGNOSTIC IMAGING REPORT ---
CT OF THE ABDOMEN AND PELVIS WITH CONTRAST CLINICAL HISTORY: Left lower quadrant abdominal pain. History of diverticulitis. COMPARISON STUDY: CT of the abdomen and pelvis January 03, 2017 MRCP January 25, 2017. TECHNIQUE: Following IV administration of 93 mL of Optiray-320, axial images of the abdomen and pelvis were obtained from the lung bases to the proximal femurs. Images were reviewed in the axial, sagittal, and coronal planes. IV contrast was administered without complication. Oral contrast was administered. CT DOSE: 311.32 mGy.cm FINDINGS: Minimal mucus or debris is noted within several right lower lobe segmental bronchi. A few subcentimeter hepatic lesions are too small to characterize but are likely benign. The spleen, adrenal glands and pancreas are normal. An 8 mm hypodense left renal lesion is too small to characterize but is likely benign. There is no hydronephrosis. There is no evidence for a bowel obstruction. The appendix is normal. A 2.1 cm fat attenuation lesion within the ascending colon likely reflects a lipoma. There is extensive sigmoid diverticulosis. On axial image 305 of 406, there is a linear hyperdensity which arises from the anterior superior aspect of the mid sigmoid colon extends into the mesentery. This extends toward small bowel loops. This is slightly hyperdense. A small amount of associated fluid and infiltration is noted. There is no free air. There is moderate atherosclerotic plaque. IMPRESSION: 1. Extensive sigmoid diverticulosis with associated linear hyperdense tract arising from the mid sigmoid colon which extends towards several small bowel loops. This raises the possibility of coloenteric fistula. Trace associated fluid and infiltration. The findings may reflect mild diverticulitis. No drainable fluid collection. No bowel obstruction. 2. 2.1 cm lipoma within the ascending colon. Electronically signed by: Yobani Hunter M.D. 04/15/2017 1:01 PM Dictated Date/Time: 04/15/2017 12:47 PM
[2017-04-15] MEDS ORDERED: CIPROFLOXACIN 400MG / 200ML D5W IV STA (13:12)
[2017-04-15] MEDS ORDERED: METRONIDAZOLE 500MG / 100ML NSS IV STA (13:12)
[2017-04-15] MEDS ORDERED: TRAMADOL HCL 50 MG TAB PO STA (13:40)
--- NOTE | 2017-04-15 13:40 | EMERGENCY ROOM VISIT NOTE ---
History Report prepared by Ella: Santos Casper Under the Supervision of: Dr. Lilliam Gooden D.O. First contact with patient: 08:44 Chief Complaint: ABDOMINAL PAIN Stated Complaint: STOMACH PAIN History of Present Illness The patient is a 66 year old female who presents to the Emergency Room with complaints of persistent generalized abdominal pain beginning yesterday. She was seen in the ED four months ago for similar symptoms and was found to have diverticulitis. She states that she was hospitalized for three days for her diverticulitis. The patient notes that she had an upper endoscopy and a colonoscopy since then which were both normal. She states that she has no problem with bowel movements recently and has been able to pass gas. She denies any nausea, fevers, vomiting, bloody stool, abdominal distension, back pain, urinary symptoms, or chills. The patient denies any recent changes to her diet. She notes that she currently has a headache. Source of History: patient Onset: Yesterday Position: abdomen (generalized) Timing: other (persistent) Associated Symptoms: + headache, No fevers, No chills, No nausea, No vomiting, No back pain, No urinary symptoms Note: The patient denies any abdominal distension. Review of Systems See HPI for pertinent positives & negatives. A total of 10 systems reviewed and were otherwise negative. Past Medical & Surgical Medical Problems: (1) Acute diverticulitis Surgical Problems: (1) H/O: hysterectomy Family History No pertinent family history Social History Smoking Status: Current Every Day Smoker Alcohol Use: none Marital Status: Housing Status: lives with family Current/Historical Medications Scheduled Calcium/Vitamin D (Os-Sean 500 Plus D), 1 TAB PO QAM Ciprofloxacin Hcl (Cipro), 500 MG PO BID Fluconazole (Diflucan), 150 MG PO DIRECTED Fluticasone Propionate (Nasal) (Flonase Allergy Relief), 2 SPRAY BARB QAM Metronidazole (Flagyl), 500 MG PO TID Polyethylene Glycol 3350 (Miralax), 17 GM PO QAM Scheduled PRN Tramadol (Ultram), 1-2 TABS PO Q8 PRN for Pain Allergies Coded Allergies: Codeine (Verified Allergy, Mild, GI SYMPTOMS, 04/15/17) nauseated Morphine (Verified Adverse Reaction, Intermediate, nausea and vomiting, 07/23) Physical Exam Vital Signs Date Time Temp Pulse Resp B/P (MAP) Pulse Ox O2 Delivery O2 Flow Rate FiO2 04/15/17 15:35 76 20 162/106 94 04/15/17 15:07 76 20 162/106 94 Room Air 04/15/17 14:18 94 14 177/109 92 Room Air 04/15/17 13:08 90 18 142/107 93 Room Air 04/15/17 11:30 88 19 149/93 93 Room Air 04/15/17 10:13 84 17 115/95 93 Room Air 04/15/17 09:18 87 22 136/100 93 Room Air 04/15/17 08:37 36.6 99 22 163/122 95 Room Air Physical Exam GENERAL: alert, anxious-appearing, well nourished, no distress, non-toxic EYE EXAM: normal conjunctiva, PERRL and EOM's grossly intact OROPHARYNX: no exudate, no erythema, lips, buccal mucosa, and tongue normal and mucous membranes are moist NECK: supple, no nuchal rigidity, no adenopathy, non-tender LUNGS: Clear to auscultation. Normal chest wall mechanics HEART: no murmurs, S1 normal and S2 normal ABDOMEN: abdomen soft, mild LLQ discomfort to palpation, normo-active bowel sounds, no masses, no rebound or guarding. BACK: Back is symmetrical on inspection and there is no deformity, no midline tenderness, no CVA tenderness. SKIN: no rashes and no bruising UPPER EXTREMITIES: upper extremities are grossly normal. LOWER EXTREMITIES: No pitting edema. NEURO EXAM: Normal sensorium, cranial nerves II-XII [grossly] intact, normal speech, no [gross] weakness of arms, no [gross] weakness of legs. [No drift. Finger to nose intact. Gross sensation intact.] Medical Decision & Procedures ER Provider Diagnostic Interpretation: CT:Per my review, radiologist interpretation. CT OF THE ABDOMEN AND PELVIS WITH CONTRAST FINDINGS: Minimal mucus or debris is noted within several right lower lobe segmental bronchi. A few subcentimeter hepatic lesions are too small to characterize but are likely benign. The spleen, adrenal glands and pancreas are normal. An 8 mm hypodense left renal lesion is too small to characterize but is likely benign. There is no hydronephrosis. There is no evidence for a bowel obstruction. The appendix is normal. A 2.1 cm fat attenuation lesion within the ascending colon likely reflects a lipoma. There is extensive sigmoid diverticulosis. On axial image 305 of 406, there is a linear hyperdensity which arises from the anterior superior aspect of the mid sigmoid colon extends into the mesentery. This extends toward small bowel loops. This is slightly hyperdense. A small amount of associated fluid and infiltration is noted. There is no free air. There is moderate atherosclerotic plaque. IMPRESSION: 1. Extensive sigmoid diverticulosis with associated linear hyperdense tract arising from the mid sigmoid colon which extends towards several small bowel loops. This raises the possibility of coloenteric fistula. Trace associated fluid and infiltration. The findings may reflect mild diverticulitis. No drainable fluid collection. No bowel obstruction. 2. 2.1 cm lipoma within the ascending colon. Electronically signed by: Yobani Hunter M.D. Laboratory Results 04/15/17 08:12 Red Blood Count 5.62, Mean Corpuscular Volume 86.7, Mean Corpuscular Hemoglobin 30.1, Mean Corpuscular Hemoglobin Concent 34.7, Mean Platelet Volume 9.9, Neutrophils (%) (Auto) 80.1, Lymphocytes (%) (Auto) 14.4, Monocytes (%) (Auto) 5.0, Eosinophils (%) (Auto) 0.2, Basophils (%) (Auto) 0.1, Neutrophils # (Auto) 10.19, Lymphocytes # (Auto) 1.83, Monocytes # (Auto) 0.63, Eosinophils # (Auto) 0.03, Basophils # (Auto) 0.01 04/15/17 09:09 Test 04/15/17 08:12 04/15/17 08:45 04/15/17 09:09 White Blood Count 12.71 K/uL (4.8-10.8) Red Blood Count 5.62 M/uL (4.2-5.4) Hemoglobin 16.9 g/dL (12.0-16.0) Hematocrit 48.7 % (37-47) Mean Corpuscular Volume 86.7 fL (80-100) Mean Corpuscular Hemoglobin 30.1 pg (25-34) Mean Corpuscular Hemoglobin Concent 34.7 g/dl (32-36) Platelet Count 249 K/uL (130-400) Mean Platelet Volume 9.9 fL (7.4-10.4) Neutrophils (%) (Auto) 80.1 % Lymphocytes (%) (Auto) 14.4 % Monocytes (%) (Auto) 5.0 % Eosinophils (%) (Auto) 0.2 % Basophils (%) (Auto) 0.1 % Neutrophils # (Auto) 10.19 K/uL (1.4-6.5) Lymphocytes # (Auto) 1.83 K/uL (1.2-3.4) Monocytes # (Auto) 0.63 K/uL (0.11-0.59) Eosinophils # (Auto) 0.03 K/uL (0-0.5) Basophils # (Auto) 0.01 K/uL (0-0.2) RDW Standard Deviation 46.3 fL (36.4-46.3) RDW Coefficient of Variation 14.5 % (11.5-14.5) Immature Granulocyte % (Auto) 0.2 % Immature Granulocyte # (Auto) 0.02 K/uL (0.00-0.02) Urine Color YELLOW Urine Appearance CLEAR (CLEAR) Urine pH 5.5 (4.5-7.5) Urine Specific [place] 1.022 (1.000-1.030) Urine Protein NEG (NEG) Urine Glucose (UA) NEG (NEG) Urine Ketones NEG (NEG) Urine Occult Blood NEG (NEG) Urine Nitrite NEG (NEG) Urine Bilirubin NEG (NEG) Urine Urobilinogen NEG (NEG) Urine Leukocyte Esterase NEG (NEG) Anion Gap 2.0 mmol/L (3-11) Est Creatinine Clear Calc Drug Dose 77.5 ml/min Estimated GFR () 107.6 Estimated GFR (Non- 92.8 BUN/Creatinine Ratio 19.6 (10-20) Lactic Acid Level 0.8 mmol/L (0.4-2.0) Calcium Level 8.9 mg/dl (8.5-10.1) Total Bilirubin 0.7 mg/dl (0.2-1) Aspartate Amino Transf (AST/SGOT) 17 U/L (15-37) Alanine Aminotransferase (ALT/SGPT) 25 U/L (12-78) Alkaline Phosphatase 79 U/L (45-117) Total Protein 7.6 gm/dl (6.4-8.2) Albumin 3.6 gm/dl (3.4-5.0) Globulin 4.0 gm/dl (2.5-4.0) Albumin/Globulin Ratio 0.9 (0.9-2) Laboratory results per my review. Medications Administered Medications (Trade) Dose Ordered Sig/Jordan Route Start Time Stop Time Status Last Admin Dose Admin Sodium Chloride 1,000 ml @ 250 mls/hr Q4H STAT IV 04/15/17 09:00 04/15/17 12:59 DC 04/15/17 09:18 250 MLS/HR Ondansetron HCl (Zofran Inj) 4 mg NOW STAT IV 04/15/17 09:00 04/15/17 09:02 DC 04/15/17 09:19 4 MG Fentanyl Citrate (Fentanyl Inj) 50 mcg NOW ONCE IV 04/15/17 09:15 04/15/17 09:16 DC 04/15/17 09:19 50 MCG Ciprofloxacin/ Dextrose (Cipro / D5W) 400 mg NOW STAT IV 04/15/17 13:12 04/15/17 13:13 DC 04/15/17 13:19 400 MG Metronidazole (Flagyl / Nss) 500 mg NOW STAT IV 04/15/17 13:12 04/15/17 13:13 DC 04/15/17 13:19 500 MG Tramadol HCl (Ultram Tab) 50 mg NOW STAT PO 04/15/17 13:40 04/15/17 13:41 DC 04/15/17 14:17 50 MG ED Course 0849: The patient was evaluated in room A3. A complete history and physical exam was performed. 0900: Ordered Zofran Inj 4 mg IV, Morphine Sulfate 4 mg IV, Sodium Chloride 1000 ml @ 250 mls/hr IV. 0915: Ordered Fentanyl Inj 50 mcg IV. 1312: Ordered Flagyl / NSS 500 mg IV, Cipro / D5W 400 mg IV. 1330: I reassessed the patient. She is feeling much better. 1340: Ordered Ultram Tab 50 mg PO. 1430: Upon reevaluation, the patient is feeling better. I discussed the findings and the treatment plan with the patient. She verbalizes agreement and understanding. The patient was discharged home. Medical Decision Differential diagnosis: Etiologies such as appendicitis, diverticulitis, PUD, biliary pathology, UTI, pancreatitis, obstruction, mesenteric ischemia, aortic pathology, infections, inflammatory bowel disease, renal colic, as well as others were entertained. Blood pressure screening: Patient was found to have a slightly elevated blood pressure due to circumstances. I do not believe that the patient requires hypertension monitoring. Medication Reconciliation: I attest that I have personally reviewed the patient' s current medication list. Patient well-appearing here and treated for likely early diverticulitis, no evidence of consultations including abscess or perforation. No evidence of bacteremia/sepsis, vital signs stable throughout. Patient's pain controlled with Ultram per her request. Patient comfortable with antibiotics as ordered as she is taking them previously. Discussed all results with patient at bedside , discussed conversation with Dr. Brush and need for outpatient follow-up with him as well as with GI again given second recurrence of diverticulitis within several months timeframe. Discussed with patient symptoms to watch and return for, use of other medications, hydration, diet, she verbalized understanding of all this was agreeable with plan. No other evidence of concurrent or vascular pathology. Consults Time Called: 1325 Consulting Physician: Dr. Brush Returned Call: [phone] Brush, feels possible fistula less likely related to acute diverticulitis. Feels if pt well appearing, pt can be discharged with antibiotics, agreeable with cipro/flagyl. They can f/u in the office. Impression Primary Impression: Acute diverticulitis Additional Impression: Left lower quadrant pain Scribe Attestation The scribe's documentation has been prepared under my direction and personally reviewed by me in its entirety. I confirm that the note above accurately reflects all work, treatment, procedures, and medical decision making performed by me. Departure Information Dispostion Home / Self-Care Prescriptions Fluconazole (DIFLUCAN) 150 Mg Tab 150 MG PO DIRECTED, #1 TAB Prov: Lilliam Gooden, DO 04/15/17 Tramadol (Ultram) 50 Mg Tab 1-2 TABS PO Q8 Y for Pain, #14 TAB Prov: Lilliam Gooden, DO 04/15/17 Metronidazole (FLAGYL) 500 Mg Tab 500 MG PO TID, #30 TAB Prov: Lilliam Gooden, DO 04/15/17 Ciprofloxacin Hcl (CIPRO) 500 Mg Tab 500 MG PO BID, #20 TAB Prov: Lilliam Gooden, DO 04/15/17 Referrals Estefanía Ayala M.D. (PCP) Patient Instructions My [facility] Additional Instructions Please take the antibiotics as prescribed until they are completed. Please use probiotics while on the antibiotics. Please drink plenty of water. Please follow-up with your family doctor. Please follow-up with the surgeon listed to discuss the possible fistula noted on the CAT scan. Please continue regular medications as prescribed. If you develop any worsening pain, have black or bloody stools, develop vomiting, fevers, or you have any other new concerns, please return the emergency room. Problem Qualifiers
[2017-04-15] MEDS ORDERED: METR500T PO (14:29)
[2017-04-15] MEDS ORDERED: CIPR-255 PO (14:29)
[2017-04-15] MEDS ORDERED: TRAM-10 PO (14:29)
[2017-04-15] MEDS ORDERED: FLUC150T PO (14:41)
[2017-04-15 15:35] VITALS: BP 162/106; PULSE 76; O2SAT 94
[2017-05-06] MEDS ORDERED: NICO14DI5 TD (12:38)
[2017-05-06] MEDS ORDERED: LCTX PO (12:38)
[2017-05-06] MEDS ORDERED: MTR500 PO (12:38)
[2017-05-06] MEDS ORDERED: CIPR-255 PO (12:38)
[2017-06-28] MEDS ORDERED: CALC-388 PO (08:31)
[2017-06-28] MEDS ORDERED: FLUT50SP45 (08:31)
[2017-06-28] MEDS ORDERED: CITA20TA4 PO (08:31)
[2017-06-28] MEDS ORDERED: ACET-1222 PO (08:31)
[2017-06-28] MEDS ORDERED: CETI10TA84 PO (08:31)
[2017-06-28] MEDS ORDERED: OMEG10007 PO (08:31)
== END 2017-04-15 15:49 | disposition home or self-care (01) ==
LOC: C.EDB 08:29 → C.EDA 15:49
DX: K57.92 Diverticulitis of intestine, part unspecified, without perforation or abscess without bleeding (principal); R10.32 Left lower quadrant pain; F17.210 Nicotine dependence, cigarettes, uncomplicated; Z79.899 Other long term (current) drug therapy

== ENCOUNTER 2017-05-02 07:48 | Inpatient (IN) | payer OTHER ==
[~2017-05-02] VITALS: Ht 157.5 cm; Wt 68.8 kg
[2017-05-02] VITALS (9 sets, daily range): BP systolic 75–100; BP diastolic 45–65; PULSE 77–82; TEMP 36.5–36.9; O2SAT 88–95; Ht 157.5 cm; Wt 68.8 kg
[~2017-05-02 07:48] MED LIST changes: +CIPR-255 PO; -NCDT14 TD; -SIME80CH PO; +TRAM-10 PO
[2017-05-02 08:18] LABS: BASO % 0.1 %; BASO ABS # 0.02 K/uL (0-0.2); COMPLETE YES; EOS % 0.2 %; HEMATOCRIT 48.2 % (37-47); IG% 0.4 %; LYMPH ABS # 1.72 K/uL (1.2-3.4); MEAN CELL VOLUME 87.6 fL (80-100); MEAN CORPUSCULAR HGB CONC 34.2 g/dl (32-36); MEAN PLATELET VOLUME 9.9 fL (7.4-10.4); MONO % 6.2 %; NEUT % 84.1 %; PLATELET COUNT 260 K/uL (130-400)
[2017-05-02] MEDS ORDERED: PIPERACILLIN/TAZOBACTAM 4.5 GM/100ML D5W IV STA (08:22)
[2017-05-02] MEDS ORDERED: OPTIRAY 320 IV PRN (08:30)
[2017-05-02] MEDS ORDERED: SODIUM CHLORIDE 0.9% 1000ML 1,000 ML IV STA ×3 (08:34→18:31)
[2017-05-02 08:39] LABS: BUN/CREATININE RATIO 11.9 (10-20); CALCIUM 9.1 mg/dl (8.5-10.1); CREATININE 0.67 mg/dl (0.60-1.20); POTASSIUM 4.2 mmol/L (3.5-5.1)
[2017-05-02] MEDS ORDERED: CPR750 PO (09:04)
[2017-05-02] MEDS ORDERED: MTR500 PO (09:04)
--- NOTE | 2017-05-02 09:25 | DIAGNOSTIC IMAGING REPORT ---
ABD/PELVIS IV CONTRAST ONLY CT DOSE: 254.24 mGy.cm HISTORY: Pain ll. Abd pain w/ wbc 19 TECHNIQUE: Multiaxial CT images of the abdomen and pelvis were performed following the use of intravenous contrast. A dose lowering technique was utilized adhering to the principles of ALARA. COMPARISON STUDY: 04/15/2017 FINDINGS: Lung bases remain clear. Liver spleen and pancreas enhance uniformly. Mild dependent bibasilar atelectatic change. The findings of diverticulitis involving the sigmoid colon are progressive. There is a considerable increase in infiltrative change of the fat and fascial planes of the soft tissue pelvis and cul-de-sac region. A fistulous tract extending from the sigmoid colon To the small bowel appears to be slightly progressive in overall size with evidence for considerable wall edematous change of interposed loops of small bowel in the low pelvic region. No evidence for pneumatosis or free air at the current time There is evidence for increased fluid within the colon as well as small bowel consistent with reactive ileus and a potential partial obstructive changes. A drainable abscess or collection is not identified. Possible trace amount of debris within the gallbladder lumen which is slightly distended. IMPRESSION: 1. Progressive acute diverticulitis with extensive infiltrative change of the fat and fascial planes throughout the soft tissue pelvis. 2. 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 3. Small bowel wall edematous change creates at least partial bowel obstructive change 4. No evidence for drainable abscess or collection at the current time. 5. No evidence for pneumatosis or free air The above report was generated using voice recognition software. It may contain grammatical, syntax or spelling errors. Electronically signed by: Remi Parham M.D. 05/02/2017 9:24 AM Dictated Date/Time: 05/02/2017 9:06 AM
[2017-05-02] MEDS ORDERED: HYDROmorphone INJ 1 MG/ML SYR IV STA (09:36)
[2017-05-02] MEDS ORDERED: ONDANSETRON INJ 2 MG/ML 2 ML VIAL IV STA (09:39)
[2017-05-02] MEDS ORDERED: ALUMINUM/MAGNESIUM/SIMETH (MAALOX MAX) 30 ML UDC PO PRN (10:15)
[2017-05-02] MEDS ORDERED: ZOLPIDEM TARTRATE 5 MG TAB PO PRN (10:15)
[2017-05-02] MEDS ORDERED: MAGNESIUM HYDROXIDE SUSP 30 ML UDC PO PRN (10:15)
--- NOTE | 2017-05-02 11:02 | History and Physical ---
History & Physical Date & Time of Service: May 02, 2017 at 10:52 Chief Complaint: Stomach Pain Primary Care Physician: No Doctor, Assigned History of Present Illness Source: patient, family 66 years old female who is currently smoker 1/2 pack per day, no other significant chronic disease. 12/2016 presented with acute diverticulitis and was treated with Abx. February 2017 she had a colonoscopy w Dr. Latif, results are attached below. 2 weeks ago had another episode of divirticulitis and was treated with Abx , finished 7 days ago. 2 days ago started having the left lower quadrant pain again and called her PCP who started cipro/flagyl oral. pain got progressively worse and she presented today to ED, was found to be border line hypotensive and had a WBC count of 19. denies any diarrhea. current smoker denies family Hx of cancer or autoimmune disease Past Medical/Surgical History Surgical Problems: (1) H/O: hysterectomy Status: Resolved Family History No pertinent family history Social History Smoking Status: Current Every Day Smoker Marital Status: Housing status: lives with family Multi-Drug Resistant Organisms History of MDRO: No Allergies Coded Allergies: Codeine (Verified Allergy, Mild, GI SYMPTOMS, 04/15/17) nauseated Morphine (Verified Adverse Reaction, Intermediate, nausea and vomiting, 07/23) Home Medications Scheduled Ciprofloxacin (Ciprofloxacin HCl), 750 MG PO BID Metronidazole (Metronidazole), 500 MG PO QID Review of Systems Constitutional: No fever, No chills, No sweats, No weight loss, No weakness, No fatigue, No problem reported Eyes: + redness, + discharge, No worsening of vision, No eye pain, No diplopia , No problem reported ENT: No hearing loss, No unusual epistaxis, No nasal symptoms, No sore throat, No tinnitus, No dental problems, No trouble swallowing, No problem reported Respiratory: No cough, No sputum, No wheezing, No shortness of breath, No dyspnea on exertion, No dyspnea at rest, No hemoptysis, No problem reported Cardiovascular: No chest pain, No orthopnea, No PND, No edema, No claudication , No palpitations, No problem reported Abdomen: + pain, No nausea, No vomiting, No diarrhea, No constipation, No GI bleeding, No problem reported Musculoskeletal: No joint pain, No muscle pain, No swelling, No calf pain, No problem reported Genitourinary - Female: No dysuria, No urinary frequency, No urinary urgency, No urinary incontinence, No urinary retention, No hematuria, No dysmenorrhea, No menorrhagia, No metrorrhagia, No rash, No vaginal bleeding, No vaginal discharge, No vaginal itching, No vulvodynia, No , No problem reported Neurologic: No memory loss, No paralysis, No weakness, No numbness/tingling, No vertigo, No balance problems, No problem reported Psychiatric: No depression symptoms, No anhedonism, No anxiety, No insomnia, No substance abuse, No problem reported Endocrine: No fatigue, No excessive thirst, No excessive urination, No problem reported Integumentary: No rash, No itch, No new/changing skin lesions, No color change , No bleeding, No problem reported Allergic / Immunologic: No environmental allergies, No seasonal allergies, No pet sensitivities, No food allergies, No hives, No frequent infections, No poor healing, No prolonged convalescence, No problem reported Physical Exam Vital Signs Date Time Temp Pulse Resp B/P (MAP) Pulse Ox O2 Delivery O2 Flow Rate FiO2 05/02/17 10:38 94/59 05/02/17 10:21 86 18 77/59 95 05/02/17 09:50 95 Room Air 05/02/17 08:28 102 18 124/11 95 05/02/17 07:52 36.8 109 18 94/64 94 Room Air General Appearance: WD/WN, + mild distress Head: normocephalic, atraumatic Eyes: + pertinent finding (right eye is red with some discharge) ENT: normal ENT inspection, hearing grossly normal Neck: supple, no adenopathy Respiratory/Chest: chest non-tender, lungs clear, normal breath sounds, no respiratory distress, no accessory muscle use Cardiovascular: regular rate, rhythm, no edema, no gallop, no JVD, no murmur Abdomen/GI: + tenderness (LLQ), + distended, + guarding Back: normal inspection Extremities/Musculoskelatal: normal inspection, no calf tenderness, normal capillary refill, no pedal edema Neurologic/Psych: disability rater II-XII nml as tested, no motor/sensory deficits, alert, normal mood/affect Diagnostics Laboratory Results Results Past 24 Hours Test 05/02/17 08:02 05/02/17 08:49 Range/Units White Blood Count 19.20 4.8-10.8 K/uL Red Blood Count 5.50 4.2-5.4 M/uL Hemoglobin 16.5 12.0-16.0 g/dL Hematocrit 48.2 37-47 % Mean Corpuscular Volume 87.6 80-100 fL Mean Corpuscular Hemoglobin 30.0 25-34 pg Mean Corpuscular Hemoglobin Concent 34.2 32-36 g/dl Platelet Count 260 130-400 K/uL Mean Platelet Volume 9.9 7.4-10.4 fL Neutrophils (%) (Auto) 84.1 % Lymphocytes (%) (Auto) 9.0 % Monocytes (%) (Auto) 6.2 % Eosinophils (%) (Auto) 0.2 % Basophils (%) (Auto) 0.1 % Neutrophils # (Auto) 16.17 1.4-6.5 K/uL Lymphocytes # (Auto) 1.72 1.2-3.4 K/uL Monocytes # (Auto) 1.19 0.11-0.59 K/uL Eosinophils # (Auto) 0.03 0-0.5 K/uL Basophils # (Auto) 0.02 0-0.2 K/uL RDW Standard Deviation 45.8 36.4-46.3 fL RDW Coefficient of Variation 14.1 11.5-14.5 % Immature Granulocyte % (Auto) 0.4 % Immature Granulocyte # (Auto) 0.07 0.00-0.02 K/uL Sodium Level 134 136-145 mmol/L Potassium Level 4.2 3.5-5.1 mmol/L Chloride Level 100 98-107 mmol/L Carbon Dioxide Level 29 21-32 mmol/L Anion Gap 5.0 3-11 mmol/L Blood Urea Nitrogen 8 7-18 mg/dl Creatinine 0.67 0.60-1.20 mg/dl Est Creatinine Clear Calc Drug Dose 71.7 ml/min Estimated GFR () 105.4 Estimated GFR (Non- 91.0 BUN/Creatinine Ratio 11.9 10-20 Random Glucose 102 70-99 mg/dl Calcium Level 9.1 8.5-10.1 mg/dl Total Bilirubin 0.8 0.2-1 mg/dl Direct Bilirubin 0.2 0-0.2 mg/dl Aspartate Amino Transf (AST/SGOT) 14 15-37 U/L Alanine Aminotransferase (ALT/SGPT) 16 12-78 U/L Alkaline Phosphatase 60 45-117 U/L Total Protein 7.6 6.4-8.2 gm/dl Albumin 3.2 3.4-5.0 gm/dl Lipase 104 73-393 U/L Lactic Acid Level 1.0 0.4-2.0 mmol/L Microbiology Results 05/02/17 Blood Culture, Received Pending 05/02/17 Blood Culture, Received Pending Impression Assessment and Plan 66 years old female presented with recurrent diverticulitis, failed out patient oral cipro/flagyl Assessment: Recurrent diverticulitis: Consult Dr. Salomon gonzalez 4.5G / 6hrs IVF hydration Probiotics will keep NPO for now, allow water sips and ice chips right eye conjunctivitis Cipro eye drops Tobacco abuse nicotine patch consulted regarding quieting smoking DVT prophylaxis with lovenox Colonoscopy 03/05/17: Impression: - Medium-sized lipoma in the ascending colon. - Diverticulosis in the sigmoid colon. - One 4 mm polyp in the rectum, removed with a hot snare. Complete resection. Polyp tissue not retrieved. - Internal hemorrhoids. Advanced Directives Existing Living Will: No Existing Power of Analysis Mgr: No VTE Prophylaxis VTE Risk Assessment Done? Y/N: Yes Risk Level: Moderate
[2017-05-02] MEDS ORDERED: PIPERACILL/TAZOBAC CONSULT ACTIVE PRN (11:45)
[2017-05-02] MEDS ORDERED: SODIUM CHLORIDE 0.9% 1000ML 1,000 ML IV SCH (11:45)
[2017-05-02] MEDS: LACTOBACILLUS ACIDOPHILUS 1 GM PACK PO SCH ×2 (12:00→17:11)
[2017-05-02 12:25] LABS: INR 1.1 (0.9-1.1); PROTHROMBIN TIME (PATIENT) 12.2 SECONDS (9.0-12.0)
[2017-05-02] MEDS: PIPERACILL/TAZOBAC IV 3.375 GM in DEXTROSE 5% 100ML 100 ML IV SCH ×2 (13:32→21:39)
[2017-05-02] MEDS: CIPROFLOXACIN HCL 3.5 GM TUBE OP SCH ×2 (13:33→20:32)
[2017-05-02] MEDS ORDERED: SODIUM CHLORIDE 0.9% 1000ML 1,000 ML IV ONE ×2 (14:31→16:15)
--- NOTE | 2017-05-02 15:15 | EMERGENCY ROOM VISIT NOTE ---
History Report prepared by Ella: Toya Albarado Under the Supervision of: Dr. Ed Renteria D.O. First contact with patient: 08:02 Chief Complaint: ABDOMINAL PAIN Stated Complaint: STOMACH PAIN Nursing Triage Summary: pt to the ED with c/o abd pain despite being on ABX for diverticulitis History of Present Illness The patient is a 66 year old female who presents to the Emergency Room with complaints of constant left lower quadrant abdominal pain that started 2 days ago. She describes the pain as dull. The pain radiates across her abdomen. The patient is also experiencing nausea which started yesterday morning. The patient experienced 2 episodes of vomiting yesterday, 1 in the morning and 1 last night. The patient states that she has not experienced any vomiting today. She denies any hematemesis. She was able to keep down yogurt last night as well as a cup of coffee this morning. She denies fevers, chills, cough, rhinorrhea, sore throat, chest pain, shortness of breath, pain or burning with urination, diarrhea, and rash. The patient was evaluated in the ED on April 15 for similar symptoms. An abdomen & pelvis CT scan at that time revealed diverticulosis but no diverticulitis. She was started on Cipro and Flagyl. She was off of Cipro and Flagyl for 1 week before her symptoms started again. When her symptoms came back she called her PCP and they prescribed her more of both. The patient's last bowel movement was 2 days ago. She took MiraLAX this morning. The patient has a history of a hysterectomy but denies any other abdominal surgeries. She still has her gallbladder and appendix. She denies any recent abdominal trauma. Source of History: patient Onset: 2 days ago Position: abdomen (LLQ) Quality: dull Timing: constant Associated Symptoms: + nausea, + vomiting, No fevers, No chills, No sorethroat, No cough, No chest pain, No SOB, No diarrhea, No urinary symptoms ( pain or burning with urination), No rash Review of Systems See HPI for pertinent positives & negatives. A total of 10 systems reviewed and were otherwise negative. Past Medical & Surgical Medical Problems: (1) Acute diverticulitis Surgical Problems: (1) H/O: hysterectomy Family History No pertinent family history Social History Smoking Status: Current Every Day Smoker Alcohol Use: none Marital Status: Housing Status: lives with family Current/Historical Medications Scheduled Ciprofloxacin (Ciprofloxacin HCl), 750 MG PO BID Metronidazole (Metronidazole), 500 MG PO QID Allergies Coded Allergies: Codeine (Verified Allergy, Mild, GI SYMPTOMS, 04/15/17) nauseated Morphine (Verified Adverse Reaction, Intermediate, nausea and vomiting, 07/23) Physical Exam Vital Signs Date Time Temp Pulse Resp B/P (MAP) Pulse Ox O2 Delivery O2 Flow Rate FiO2 05/02/17 09:50 95 Room Air 05/02/17 08:28 102 18 124/11 95 05/02/17 07:52 36.8 109 18 94/64 94 Room Air Physical Exam GENERAL: alert, sitting up in bed, disheveled, well appearing, well nourished, mild distress, non-toxic EYE EXAM: normal conjunctiva OROPHARYNX: no exudate, no erythema, lips, buccal mucosa, and tongue normal and mucous membranes are moist NECK: supple, no nuchal rigidity, no adenopathy, non-tender LUNGS: Clear to auscultation. Normal chest wall mechanics HEART: no murmurs, S1 normal and S2 normal ABDOMEN: abdomen soft, acutely tender to palpation of the left lower quadrant, normo-active bowel sounds, no masses, no rebound or guarding. BACK: Back is symmetrical on inspection and there is no deformity, no midline tenderness, no CVA tenderness. SKIN: no rashes and no bruising UPPER EXTREMITIES: upper extremities are grossly normal. LOWER EXTREMITIES: No pitting edema. NEURO EXAM: Normal sensorium, cranial nerves II-XII grossly intact, normal speech, no gross weakness of arms, no gross weakness of legs. Medical Decision & Procedures ER Provider Diagnostic Interpretation: Radiology results as stated below per my review and the radiologist's interpretation: ABD/PELVIS IV CONTRAST ONLY FINDINGS: Lung bases remain clear. Liver spleen and pancreas enhance uniformly. Mild dependent bibasilar atelectatic change. The findings of diverticulitis involving the sigmoid colon are progressive. There is a considerable increase in infiltrative change of the fat and fascial planes of the soft tissue pelvis and cul-de-sac region. A fistulous tract extending from the sigmoid colon To the small bowel appears to be slightly progressive in overall size with evidence for considerable wall edematous change of interposed loops of small bowel in the low pelvic region. No evidence for pneumatosis or free air at the current time There is evidence for increased fluid within the colon as well as small bowel consistent with reactive ileus and a potential partial obstructive changes. A drainable abscess or collection is not identified. Possible trace amount of debris within the gallbladder lumen which is slightly distended. IMPRESSION: 1. Progressive acute diverticulitis with extensive infiltrative change of the fat and fascial planes throughout the soft tissue pelvis. 2. 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 3. Small bowel wall edematous change creates at least partial bowel obstructive change 4. No evidence for drainable abscess or collection at the current time. 5. No evidence for pneumatosis or free air The above report was generated using voice recognition software. It may contain grammatical, syntax or spelling errors. Electronically signed by: Remi Parham M.D. 05/02/2017 9:24 AM Dictated Date/Time: 05/02/2017 9:06 AM Laboratory Results 05/02/17 08:02 Red Blood Count 5.50, Mean Corpuscular Volume 87.6, Mean Corpuscular Hemoglobin 30.0, Mean Corpuscular Hemoglobin Concent 34.2, Mean Platelet Volume 9.9, Neutrophils (%) (Auto) 84.1, Lymphocytes (%) (Auto) 9.0, Monocytes (%) (Auto) 6.2, Eosinophils (%) (Auto) 0.2, Basophils (%) (Auto) 0.1, Neutrophils # (Auto) 16.17, Lymphocytes # (Auto) 1.72, Monocytes # (Auto) 1.19, Eosinophils # (Auto) 0.03, Basophils # (Auto) 0.02 05/02/17 08:02 Test 05/02/17 08:02 05/02/17 08:49 White Blood Count 19.20 K/uL (4.8-10.8) Red Blood Count 5.50 M/uL (4.2-5.4) Hemoglobin 16.5 g/dL (12.0-16.0) Hematocrit 48.2 % (37-47) Mean Corpuscular Volume 87.6 fL (80-100) Mean Corpuscular Hemoglobin 30.0 pg (25-34) Mean Corpuscular Hemoglobin Concent 34.2 g/dl (32-36) Platelet Count 260 K/uL (130-400) Mean Platelet Volume 9.9 fL (7.4-10.4) Neutrophils (%) (Auto) 84.1 % Lymphocytes (%) (Auto) 9.0 % Monocytes (%) (Auto) 6.2 % Eosinophils (%) (Auto) 0.2 % Basophils (%) (Auto) 0.1 % Neutrophils # (Auto) 16.17 K/uL (1.4-6.5) Lymphocytes # (Auto) 1.72 K/uL (1.2-3.4) Monocytes # (Auto) 1.19 K/uL (0.11-0.59) Eosinophils # (Auto) 0.03 K/uL (0-0.5) Basophils # (Auto) 0.02 K/uL (0-0.2) RDW Standard Deviation 45.8 fL (36.4-46.3) RDW Coefficient of Variation 14.1 % (11.5-14.5) Immature Granulocyte % (Auto) 0.4 % Immature Granulocyte # (Auto) 0.07 K/uL (0.00-0.02) Anion Gap 5.0 mmol/L (3-11) Est Creatinine Clear Calc Drug Dose 71.7 ml/min Estimated GFR () 105.4 Estimated GFR (Non- 91.0 BUN/Creatinine Ratio 11.9 (10-20) Calcium Level 9.1 mg/dl (8.5-10.1) Total Bilirubin 0.8 mg/dl (0.2-1) Direct Bilirubin 0.2 mg/dl (0-0.2) Aspartate Amino Transf (AST/SGOT) 14 U/L (15-37) Alanine Aminotransferase (ALT/SGPT) 16 U/L (12-78) Alkaline Phosphatase 60 U/L (45-117) Total Protein 7.6 gm/dl (6.4-8.2) Albumin 3.2 gm/dl (3.4-5.0) Lipase 104 U/L (73-393) Lactic Acid Level 1.0 mmol/L (0.4-2.0) Laboratory results per my review. Medications Administered Medications (Trade) Dose Ordered Sig/Jordan Route Start Time Stop Time Status Last Admin Dose Admin Piperacillin Sod/ Tazobactam Sod (Zosyn Iv) 4.5 gm NOW STAT IV 05/02/17 08:22 05/02/17 08:23 DC 05/02/17 09:08 4.5 GM Sodium Chloride 1,000 ml @ 999 mls/hr Q1H1M STAT IV 05/02/17 08:34 05/02/17 09:34 DC 05/02/17 08:46 999 MLS/HR Hydromorphone HCl (Dilaudid Inj) 1 mg NOW STAT IV 05/02/17 09:36 05/02/17 09:38 DC 05/02/17 09:46 1 MG Ondansetron HCl (Zofran Inj) 4 mg NOW STAT IV 05/02/17 09:39 05/02/17 09:40 DC 05/02/17 09:44 4 MG ED Course ED COURSE: Vital signs were reviewed and showed hypotension and tachycardia. The patients medical record was reviewed The above diagnostic studies were performed and reviewed. ED treatments and interventions as stated above. 0803: The medical student evaluated the patient at this time. We discussed her findings as well as potential treatment plans. 0822: Ordered Zosyn 4.5 gm IV 0825: The patient was evaluated in room B3. A complete history and physical examination was performed. 0834: Ordered Sodium Chloride 1000 ml @ 999 mls/hr IV 0934: Upon reevaluation, the patient is resting comfortably. I discussed my findings with the patient and she understands and agrees with the treatment plan. Based on the patients age, coexisting illnesses, exam and lab findings the decision to treat as an inpatient was made. The patient remained stable while under my care. The patient will be evaluated for further management. 0936: Ordered Dilaudid 1 mg IV, Zofran Inj 4 mg IV 0938: I reviewed the patient's case with Dr. Francis Rizzo of the [facility]. He will evaluate the patient for further management. 1032: The nurse informed me that the patient's blood pressure dropped after getting Dilaudid. 1035: I reassessed the patient. Her systolic blood pressure was in the 90s but she is still resting comfortably. Medical Decision Differential diagnoses includes but is not limited to gastritis, peptic ulcer disease, GERD, gallbladder disease, pancreatitis, small bowel obstruction, acute coronary syndrome, pericarditis, ischemic bowel, irritable bowel disease, irritable bowel syndrome, appendicitis, diverticulitis, malignancy, hernia, urinary tract infection, torsion, perforation, trauma, infectious. Patient is a 66-year-old female who presents the ER for left lower quadrant abdominal pain which started this past Saturday. She is currently on antibiotics for diverticulitis. CT shows acute worsening of her sigmoid diverticulitis. Leukocytosis of 19,000. Initially she was hypotensive and tachycardic. She was given a bolus normal saline along with Zosyn. Patient was updated at bedside and admitted to internal medicine for sepsis secondary to diverticulitis. Medication Reconcilliation Current Medication List: was personally reviewed by me Blood Pressure Screening Patient's blood pressure: Low blood pressure Consults Time Called: [phone] Consulting Physician: Dr. Francis Rizzo [place] [facility] [place] Call: [phone] I reviewed the patient's case with Dr. Francis Rizzo of the [facility]. He will evaluate the patient for further management. Impression Primary Impression: Sepsis Additional Impression: Acute diverticulitis Scribe Attestation The scribe's documentation has been prepared under my direction and personally reviewed by me in its entirety. I confirm that the note above accurately reflects all work, treatment, procedures, and medical decision making performed by me. Departure Information Dispostion Being Evaluated By Hospitalist Referrals No Doctor, Assigned (PCP) Patient Instructions My [facility] Problem Qualifiers Primary Impression: Sepsis Sepsis type: sepsis due to unspecified organism Qualified Codes: A41.9 - Sepsis, unspecified organism
[2017-05-02] MEDS: SODIUM CHLORIDE 0.9% 1000ML 1,000 ML IV SCH (15:49)
--- NOTE | 2017-05-02 15:50 | Gastrointestinal Consultation ---
Gastrointestinal Consultation Date of Consultation: May 02, 2017 Attending Physician: Dr. Rizzo Consulting Physician: Neris Quinn PA-C Reason for Consultation: Diverticulitis History of Present Illness Patient is a 66 year old female with a history of chronic constipation & recurrent diverticulitis who presented to the emergency room after failing outpatient oral antibiotic therapy on Cipro & flagyl for acute diverticulitis. The patient has had 3 episodes of sigmoid diverticulitis in 2017. 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 She reports that she developed severe lower left sided abdominal discomfort with radiation across the lower abdomen. In the ED, she was found to be hypotensive and with a WBC count elevation of 19. Her CT scan was performed with IV contrast only in the ER. It indicated progressive acute diverticulitis with extensive infiltrative changes of the fat & fascial planes throughout the soft tissue pelvis. There was considerable reactive small bowel wall edema causing partial bowel obstructive changes. 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 There was no evidence of abscesses. She reports that her pain has improved since admission. She describes it as sharp, cramping pain. She reports difficulty passing a bowel movement. She denies fever or chills. She denies rectal bleeding. She offers no further complaints. Past Medical/Surgical History Medical Problems: (1) Diffuse abdominal pain Status: Acute (2) Diverticulitis Status: Acute (3) Nausea Status: Acute (4) Sepsis Status: Acute Past Medical History: chronic constipation, diverticulitis, tobacco abuse Past Surgical History: colonoscopy, hysterectomy Family History No pertinent family history Social History Smoking Status: Current Every Day Smoker Alcohol Use: none Marital Status: Housing Status: lives with family Allergies Coded Allergies: Codeine (Verified Allergy, Mild, GI SYMPTOMS, 04/15/17) nauseated Morphine (Verified Adverse Reaction, Intermediate, nausea and vomiting, 07/23) Current Medications Home Meds and Scripts Medications Dose Route/Sig Max Daily Dose Days Date Category Metronidazole 500 Mg Tab 500 Mg PO QID 05/02/17 Reported Ciprofloxacin HCl (Ciprofloxacin) 750 Mg Tab 750 Mg PO BID 05/02/17 Reported Review of Systems Constitutional: No fever, No chills Eyes: No eye pain ENT: No problem reported Respiratory: + cough, No shortness of breath, No dyspnea on exertion Cardiac: No chest pain Abdomen: + pain, + constipation, No nausea, No vomiting, No GI bleeding Musculoskeletal: No joint pain Psych: No problem reported Skin: No problem reported Physical Exam Date Time Temp Pulse Resp B/P (MAP) Pulse Ox O2 Delivery O2 Flow Rate FiO2 05/02/17 14:37 81 83/57 (66) 05/02/17 12:00 Room Air 05/02/17 11:25 36.6 82 18 75/52 (60) 93 Room Air 05/02/17 11:03 101/67 05/02/17 10:38 94/59 05/02/17 10:21 86 18 77/59 95 05/02/17 09:50 95 Room Air 05/02/17 08:28 102 18 124/11 95 05/02/17 07:52 36.8 109 18 94/64 94 Room Air General Appearance: WD/WN, no apparent distress Eyes: normal inspection, PERRL Respiratory/Chest: lungs clear, no respiratory distress Cardiovascular: regular rate, rhythm Abdomen: normal bowel sounds, + tenderness (LLQ) Extremities: non-tender Neurologic/Psych: alert, oriented x 3 Laboratory Results Last 24 Hours Test 05/02/17 08:02 05/02/17 08:49 05/02/17 12:02 White Blood Count 19.20 K/uL Red Blood Count 5.50 M/uL Hemoglobin 16.5 g/dL Hematocrit 48.2 % Mean Corpuscular Volume 87.6 fL Mean Corpuscular Hemoglobin 30.0 pg Mean Corpuscular Hemoglobin Concent 34.2 g/dl Platelet Count 260 K/uL Mean Platelet Volume 9.9 fL Neutrophils (%) (Auto) 84.1 % Lymphocytes (%) (Auto) 9.0 % Monocytes (%) (Auto) 6.2 % Eosinophils (%) (Auto) 0.2 % Basophils (%) (Auto) 0.1 % Neutrophils # (Auto) 16.17 K/uL Lymphocytes # (Auto) 1.72 K/uL Monocytes # (Auto) 1.19 K/uL Eosinophils # (Auto) 0.03 K/uL Basophils # (Auto) 0.02 K/uL RDW Standard Deviation 45.8 fL RDW Coefficient of Variation 14.1 % Immature Granulocyte % (Auto) 0.4 % Immature Granulocyte # (Auto) 0.07 K/uL Sodium Level 134 mmol/L Potassium Level 4.2 mmol/L Chloride Level 100 mmol/L Carbon Dioxide Level 29 mmol/L Anion Gap 5.0 mmol/L Blood Urea Nitrogen 8 mg/dl Creatinine 0.67 mg/dl Est Creatinine Clear Calc Drug Dose 71.7 ml/min Estimated GFR () 105.4 Estimated GFR (Non- 91.0 BUN/Creatinine Ratio 11.9 Random Glucose 102 mg/dl Calcium Level 9.1 mg/dl Total Bilirubin 0.8 mg/dl Direct Bilirubin 0.2 mg/dl Aspartate Amino Transf (AST/SGOT) 14 U/L Alanine Aminotransferase (ALT/SGPT) 16 U/L Alkaline Phosphatase 60 U/L Total Protein 7.6 gm/dl Albumin 3.2 gm/dl Lipase 104 U/L Lactic Acid Level 1.0 mmol/L Prothrombin Time 12.2 SECONDS Prothromb Time International Ratio 1.1 Impression Patient is a 66 year old female with recurrent diverticulitis. Imaging indicates acute diverticulitis of the sigmoid colon with evidence of reactive small bowel edema and partial obstructive change and a coloenteric fistula. Plan 1) Continue IV Zosyn 3.375 gm q 8 hr. 2) Consider surgical consult given recurrent diverticulitis with coloenteric fistula. 3) Clear liquid diet. 4) Supportive care per primary team. Thank you for allowing us to participate in the care of this patient. If you should have any further questions, do not hesitate to contact us. Agree with TAN Tenorio, as above Abd: Soft, Tender LLQ, ND, +BS Recommend surgical consult, as this is her 3rd episode of diverticulitis since December, and patient has complication of fistula formation. Continue IV Zosyn No plans for Colonoscopy as patient has had this performed this year, and had no evidence of colon cancer or IBD. Await surgery input.
[2017-05-02] MEDS ORDERED: NURSING VERBAL MED ORDER ONE ×2 (16:15→18:15)
[2017-05-02] MEDS: ACETAMINOPHEN 325 MG TAB PO PRN (17:23)
[2017-05-02 20:11] LABS: ALB/GLOB RATIO 0.7 (0.9-2); BUN/CREATININE RATIO 11.3 (10-20); CALCIUM 6.9 mg/dl (8.5-10.1); CREATININE 0.49 mg/dl (0.60-1.20); POTASSIUM 3.6 mmol/L (3.5-5.1)
[2017-05-02] MEDS: ENOXAPARIN 40 MG/0.4 ML SYR SC SCH (20:29)
--- NOTE | 2017-05-02 21:24 | Critical Care Consultation ---
Critical Care Consultation Date of Consultation: May 02, 2017. Attending Physician: Anuj Hodgson MD Reason for Consultation: Septic shock History of Present Illness This is a pleasant 66 year old female with h/o recurrent diverticulitis ( several prior episodes this year requiring hospitalization) came to ED c/o LLQ pain for two days. Was treated with Flagyl and Cipro for two days without improvement, and today she came to ED. Denies fever or chills, denies bloody stool, denies shortness of breath or chest pain. She received NS bolus in ED with improvement in BP. On the floor her SBP was in the 70s and received more NS bolus, again with improvement in her vitals. She is otherwise comfortable. Past Medical/Surgical History Diverticulitis Hysterectomy Family History No pertinent family history Social History Smoking Status: Current Every Day Smoker (Started smoking at 18) Marital Status: Housing Status: lives with family Allergies Coded Allergies: Codeine (Verified Allergy, Mild, GI SYMPTOMS, 04/15/17) nauseated Morphine (Verified Adverse Reaction, Intermediate, nausea and vomiting, 07/23) Home Medications Scheduled Ciprofloxacin (Ciprofloxacin HCl), 750 MG PO BID Metronidazole (Metronidazole), 500 MG PO QID Current Inpatient Medications Current Inpatient Medications Medications (Trade) Dose Ordered Sig/Jordan Route Start Time Stop Time Status Last Admin Dose Admin Ioversol (Optiray 320) 125 ml UD PRN IV 05/02/17 08:30 05/06/17 08:29 Enoxaparin Sodium (Lovenox Inj) 40 mg Q24H SC 05/02/17 20:00 06/01/17 19:59 05/02/17 20:29 40 MG Acetaminophen (Tylenol Tab) 650 mg Q4H PRN PO 05/02/17 10:15 06/01/17 10:14 05/02/17 17:23 650 MG Al Hydrox/Mg Hydrox/Simethicone (Maalox Max Susp) 15 ml Q4H PRN PO 05/02/17 10:15 06/01/17 10:14 Magnesium Hydroxide (Milk Of Magnesia Susp) 30 ml Q12H PRN PO 05/02/17 10:15 06/01/17 10:14 Zolpidem Tartrate (Ambien Tab) 5 mg HSZ PRN PO 05/02/17 10:15 06/01/17 10:14 Piperacillin Sod/ Tazobactam Sod 3.375 gm/Dextrose 115 ml @ 28.75 mls/ hr Q8H IV 05/02/17 14:00 05/12/17 13:59 05/02/17 13:32 28.75 MLS/HR Lactobacillus Acidophilus (Lactinex Granules Pack) 1 gm TIDM PO 05/02/17 12:00 06/01/17 11:59 05/02/17 17:11 1 GM Nicotine (Nicoderm Cq 14MG Patch) 1 patch QAM TD 05/03/17 09:00 06/02/17 08:59 Miscellaneous (Remove Nicoderm Patch) 1 ea HS N/A 05/02/17 21:00 06/01/17 20:59 Ciprofloxacin HCl (Ciloxan 0.3% Op Oint) 1 appln TID OP 05/02/17 14:00 05/12/17 13:59 05/02/17 20:32 1 APPLN Piperacillin Sod/ Tazobactam Sod (Consult) 1 ea UD PRN N/A 05/02/17 11:45 06/01/17 11:44 Sodium Chloride 1,000 ml @ 100 mls/hr Q10H IV 05/02/17 16:00 06/01/17 15:59 Future hold 05/02/17 15:49 100 MLS/HR Review of Systems Constitutional: No fever, No chills Respiratory: + shortness of breath, No cough, No sputum, No wheezing, No hemoptysis Cardiovascular: No chest pain, No orthopnea, No edema Abdomen: + pain, No vomiting, No diarrhea, No constipation, No GI bleeding Musculoskeletal: No joint pain Genitourinary - Female: No dysuria Neurologic: No weakness Integumentary: No rash Physical Exam Date Time Temp Pulse Resp B/P (MAP) Pulse Ox O2 Delivery O2 Flow Rate FiO2 05/02/17 19:55 36.9 77 18 100/65 (77) 91 Room Air 05/02/17 18:10 85/60 (68) 78/45 (56) 05/02/17 16:10 36.5 80 18 90/58 (69) 91 Room Air 05/02/17 16:00 Room Air 05/02/17 15:57 36.5 80 18 90/58 (69) 88 Room Air 05/02/17 15:56 36.6 81 18 83/57 (66) 93 Room Air 05/02/17 14:37 81 83/57 (66) 05/02/17 12:00 Room Air 05/02/17 11:25 36.6 82 18 75/52 (60) 93 Room Air 05/02/17 11:03 101/67 05/02/17 10:38 94/59 05/02/17 10:21 86 18 77/59 95 05/02/17 09:50 95 Room Air 05/02/17 08:28 102 18 124/11 95 05/02/17 07:52 36.8 109 18 94/64 94 Room Air General Appearance: well-appearing, no apparent distress, thin Head: normocephalic, atraumatic Eyes: no discharge Neck: trachea midline, supple Respiratory: breath sounds normal, clear to auscultation, no respiratory distress Cardiovasular: regular rate/rhythm, normal S1S2 Abdomen: LLQ TTP, rebound (in LLQ), guarding (in LLQ) Upper Extremities: no edema Lower Extremities: no edema Neuro: alert, oriented x 3, normal motor exam Laboratory Results Last 24 Hours Test 05/02/17 08:02 05/02/17 08:49 05/02/17 12:02 05/02/17 19:20 White Blood Count 19.20 K/uL Red Blood Count 5.50 M/uL Hemoglobin 16.5 g/dL Hematocrit 48.2 % Mean Corpuscular Volume 87.6 fL Mean Corpuscular Hemoglobin 30.0 pg Mean Corpuscular Hemoglobin Concent 34.2 g/dl Platelet Count 260 K/uL Mean Platelet Volume 9.9 fL Neutrophils (%) (Auto) 84.1 % Lymphocytes (%) (Auto) 9.0 % Monocytes (%) (Auto) 6.2 % Eosinophils (%) (Auto) 0.2 % Basophils (%) (Auto) 0.1 % Neutrophils # (Auto) 16.17 K/uL Lymphocytes # (Auto) 1.72 K/uL Monocytes # (Auto) 1.19 K/uL Eosinophils # (Auto) 0.03 K/uL Basophils # (Auto) 0.02 K/uL RDW Standard Deviation 45.8 fL RDW Coefficient of Variation 14.1 % Immature Granulocyte % (Auto) 0.4 % Immature Granulocyte # (Auto) 0.07 K/uL Sodium Level 134 mmol/L 139 mmol/L Potassium Level 4.2 mmol/L 3.6 mmol/L Chloride Level 100 mmol/L 111 mmol/L Carbon Dioxide Level 29 mmol/L 26 mmol/L Anion Gap 5.0 mmol/L 2.0 mmol/L Blood Urea Nitrogen 8 mg/dl 6 mg/dl Creatinine 0.67 mg/dl 0.49 mg/dl Est Creatinine Clear Calc Drug Dose 71.7 ml/min 98.0 ml/min Estimated GFR () 105.4 116.8 Estimated GFR (Non- 91.0 100.8 BUN/Creatinine Ratio 11.9 11.3 Random Glucose 102 mg/dl 106 mg/dl Calcium Level 9.1 mg/dl 6.9 mg/dl Total Bilirubin 0.8 mg/dl 0.5 mg/dl Direct Bilirubin 0.2 mg/dl Aspartate Amino Transf (AST/SGOT) 14 U/L 8 U/L Alanine Aminotransferase (ALT/SGPT) 16 U/L 11 U/L Alkaline Phosphatase 60 U/L 42 U/L Total Protein 7.6 gm/dl 5.2 gm/dl Albumin 3.2 gm/dl 2.2 gm/dl Lipase 104 U/L Lactic Acid Level 1.0 mmol/L 0.6 mmol/L Prothrombin Time 12.2 SECONDS Prothromb Time International Ratio 1.1 Globulin 3.0 gm/dl Albumin/Globulin Ratio 0.7 Random Cortisol 10.82 mcg/dl Diagnostic Results CT abdomen IMPRESSION: 1. Progressive acute diverticulitis with extensive infiltrative change of the fat and fascial planes throughout the soft tissue pelvis. 2. 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 3. Small bowel wall edematous change creates at least partial bowel obstructive change 4. No evidence for drainable abscess or collection at the current time. 5. 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 Incidentally I noticed her O2 saturation is low on room air (92%). Considering she is long time smoker, she may have undiagnosed lung disease. Hypotension, improved with IV fluids Lactic acid remained normal. Continue IV Abx Continue IV fluids. She naturally has borderline low BP, even though occasionally it drops, she responds to fluid bolus right away, I do not consider that she is in any form of shock for the time being. Does not require ICU monitoring at this time. The situation can certainly change , at which point we will get involved again. Surgical evaluation given recurrent episodes, not responding to medical therapy. I also recommend pulmonary evaluation for her hypoxia, could be done as outpatient if no surgical intervention is planned during this hospital stay. May have a component of emphysema given extensive smoking history.
[2017-05-03] VITALS (7 sets, daily range): BP systolic 95–124; BP diastolic 62–87; PULSE 72–94; TEMP 36.3–37.3; O2SAT 92–95
[2017-05-03] MEDS: ACETAMINOPHEN 325 MG TAB PO PRN ×4 (00:59→21:52)
[2017-05-03] MEDS: SODIUM CHLORIDE 0.9% 1000ML 1,000 ML IV SCH ×3 (02:08→21:51)
[2017-05-03 02:23] LABS: URINE APPEARANCE CLOUDY (CLEAR); URINE BILIRUBIN NEG (NEG); URINE COLOR YELLOW; URINE EPITHELIAL CELL AUTO >30 /lpf (0-5); URINE NITRITE NEG (NEG); URINE PH 5.5 (4.5-7.5); UROBILINOGEN NEG (NEG); ZZUR CULT IF INDIC CLEAN CATCH YES
[2017-05-03 02:26] LABS: MANUAL MICROSCOPIC REQUIRED? NO; REVIEW REQ? NO
[2017-05-03] MEDS: PIPERACILL/TAZOBAC IV 3.375 GM in DEXTROSE 5% 100ML 100 ML IV SCH ×3 (05:42→21:51)
[2017-05-03] MEDS: CIPROFLOXACIN HCL 3.5 GM TUBE OP SCH ×3 (07:40→19:57)
[2017-05-03] MEDS: NICOTINE 14 MG/24 HR TDSY TD SCH (07:40)
[2017-05-03] MEDS: LACTOBACILLUS ACIDOPHILUS 1 GM PACK PO SCH ×3 (07:41→16:59)
[2017-05-03 09:04] LABS: BUN/CREATININE RATIO 6.1 (10-20); CALCIUM 7.6 mg/dl (8.5-10.1); CREATININE 0.54 mg/dl (0.60-1.20); POTASSIUM 3.7 mmol/L (3.5-5.1)
[2017-05-03 09:07] LABS: ALB/GLOB RATIO 0.7 (0.9-2)
[2017-05-03 09:36] LABS: BASO % 0.1 %; BASO ABS # 0.01 K/uL (0-0.2); COMPLETE YES; EOS % 0.4 %; HEMATOCRIT 40.4 % (37-47); IG% 0.2 %; LYMPH % 10.2 %; LYMPH ABS # 1.18 K/uL (1.2-3.4); MEAN CELL VOLUME 89.4 fL (80-100); MEAN CORPUSCULAR HEMOGLOBIN 29.2 pg (25-34); MEAN CORPUSCULAR HGB CONC 32.7 g/dl (32-36); MEAN PLATELET VOLUME 9.7 fL (7.4-10.4); MONO % 6.2 %; NEUT % 82.9 %; PLATELET COUNT 195 K/uL (130-400); RED BLOOD COUNT 4.52 M/uL (4.2-5.4); WHITE BLOOD COUNT 11.57 K/uL (4.8-10.8)
--- NOTE | 2017-05-03 09:55 | Critical Care Progress Note ---
Critical Care Progress Note Date of Service May 03, 2017. Attending Dr. Liu Subjective Patient seen and examined at bedside. We saw her last evening and evaluated her for hypotension. She was admitted with recurrent diverticulitis. She received a fluid bolus and SBP increased to the low to mid 90s. She is currently on maintenance fluids at 100 mL/hr and is maintaining SBP > 100. She has no tachycardia. She has had some bowel movements this morning with are loose but not watery. She denies fever or chills. She had no sweats overnight. Abdominal pain is improved. She has no acute complaints this morning. Objective Vital Signs - as noted below Laboratory Data - as noted below Physical Exam: General - NAD Eyes - No icterus, gaze conjugate ENT - Mucosa moist, no lesions or candidiasis Neck - Supple, No JVD Lungs - No bronchospasm, rales, or rhonchi. Good inspirational effort Heart - Regular, rate controlled in the 70s Abdomen - Soft, ND, BS present and hyperactive. Tender with deep palpation but no guarding or rebound tenderness Extremities - Trace B/L LE edema, pedal pulses intact Neuro - A&OX3 Current SOFA Score SOFA Score Response (Comments) Value Platelets (x10) > 150 0 Bilirubin (mg/dL) < 1.2 0 [place] Coma Score 15 0 Level of Hypotension No Hypotension 0 Creatinine (mg/dL) < 1.2 0 Total 0 Assessment & Plan DIVERTICULITIS Continue IV antibiotics Recurrent episode Surgery consulted Afebrile. WBCs improved Symptoms are improved since admission Further management per surgery HYPOTENSION No tachycardia Responded to fluid challenge Continue IVF at 100 mL/hr pending surgical decision and diet recommendations per surgery No need for pressors or ICU transfer TOBACCO ABUSE Discussed need for continued decrease in tobacco abuse Discussed need for abstention but patient states that she is not ready Has decreased cigarette count to 3-4 per day Continue nicotine patch HYPOXIA SaO2 down to 87% last night momentarily Did not require prolonged supplemental oxygenation This morning she is oxygenating adequately on room air with an SaO2 of 95% Lungs are clear on auscultation CT abd/pelvis reviewed - lung bases are clear. No indication for CXR RENAL No renal failure Adequate urine output per patient ELECTROLYTES Balanced DVT PROPHYLAXIS Patient able to increase ambulation and has been OOB several times this morning No chemical prophylaxis at this time due to possible surgery Suggest TEDs/SCDs Thank you for including us in the care of this patient. We will sign off at this time. Please feel free to reconsult as needed. Please refer to Dr Liu's addendum for further recommendations. Critical care attending: I agree with with Taras Ibarra PA-C, patient remained stable, responded to IV fluids Continue Abx treatment Recommend pulmonary evaluation as outpatient, or as inpatient if she requires surgical intervention, she may have significant undiagnosed emphysema Wil Liu MD Consults & Procedures Consultants: Surgery Gastroenterology Optometric Aide Procedures: None Data Medications: Current Inpatient Medications Medications (Trade) Dose Ordered Sig/Jordan Route Start Time Stop Time Status Last Admin Dose Admin Ioversol (Optiray 320) 125 ml UD PRN IV 05/02/17 08:30 05/06/17 08:29 Enoxaparin Sodium (Lovenox Inj) 40 mg Q24H SC 05/02/17 20:00 06/01/17 19:59 05/02/17 20:29 40 MG Acetaminophen (Tylenol Tab) 650 mg Q4H PRN PO 05/02/17 10:15 06/01/17 10:14 05/03/17 00:59 650 MG Al Hydrox/Mg Hydrox/Simethicone (Maalox Max Susp) 15 ml Q4H PRN PO 05/02/17 10:15 06/01/17 10:14 Magnesium Hydroxide (Milk Of Magnesia Susp) 30 ml Q12H PRN PO 05/02/17 10:15 06/01/17 10:14 Zolpidem Tartrate (Ambien Tab) 5 mg HSZ PRN PO 05/02/17 10:15 06/01/17 10:14 Piperacillin Sod/ Tazobactam Sod 3.375 gm/Dextrose 115 ml @ 28.75 mls/ hr Q8H IV 05/02/17 14:00 05/12/17 13:59 05/03/17 05:42 28.75 MLS/HR Lactobacillus Acidophilus (Lactinex Granules Pack) 1 gm TIDM PO 05/02/17 12:00 06/01/17 11:59 05/02/17 17:11 1 GM Nicotine (Nicoderm Cq 14MG Patch) 1 patch QAM TD 05/03/17 09:00 06/02/17 08:59 05/03/17 07:40 1 PATCH Miscellaneous (Remove Nicoderm Patch) 1 ea HS N/A 05/02/17 21:00 06/01/17 20:59 Ciprofloxacin HCl (Ciloxan 0.3% Op Oint) 1 appln TID OP 05/02/17 14:00 05/12/17 13:59 05/03/17 07:40 1 APPLN Piperacillin Sod/ Tazobactam Sod (Consult) 1 ea UD PRN N/A 05/02/17 11:45 06/01/17 11:44 Sodium Chloride 1,000 ml @ 100 mls/hr Q10H IV 05/02/17 16:00 06/01/17 15:59 Future hold 05/03/17 02:08 100 MLS/HR Vital Signs: Date Time Temp Pulse Resp B/P (MAP) Pulse Ox O2 Delivery O2 Flow Rate FiO2 05/03/17 08:00 Room Air 05/03/17 07:21 37.3 80 18 101/66 (78) 95 Room Air 05/03/17 04:00 Room Air 05/03/17 04:00 37.1 93 20 107/72 (84) 92 Room Air 05/03/17 00:11 36.9 94 18 95/63 (74) 92 Room Air 05/03/17 00:00 Room Air 05/02/17 20:00 Room Air 05/02/17 19:55 36.9 77 18 100/65 (77) 91 Room Air 05/02/17 18:10 85/60 (68) 78/45 (56) 05/02/17 16:10 36.5 80 18 90/58 (69) 91 Room Air 05/02/17 16:00 Room Air 05/02/17 15:57 36.5 80 18 90/58 (69) 88 Room Air 05/02/17 15:56 36.6 81 18 83/57 (66) 93 Room Air 05/02/17 14:37 81 83/57 (66) 05/02/17 12:00 Room Air 05/02/17 11:25 36.6 82 18 75/52 (60) 93 Room Air 05/02/17 11:03 101/67 05/02/17 10:38 94/59 05/02/17 10:21 86 18 77/59 95 05/02/17 09:50 95 Room Air Laboratory Results: Last 24 Hours Test 05/02/17 12:02 05/02/17 19:20 05/03/17 00:45 05/03/17 08:14 Prothrombin Time 12.2 SECONDS Prothromb Time International Ratio 1.1 Sodium Level 139 mmol/L 140 mmol/L Potassium Level 3.6 mmol/L 3.7 mmol/L Chloride Level 111 mmol/L 108 mmol/L Carbon Dioxide Level 26 mmol/L 25 mmol/L Anion Gap 2.0 mmol/L 7.0 mmol/L Blood Urea Nitrogen 6 mg/dl 3 mg/dl Creatinine 0.49 mg/dl 0.54 mg/dl Est Creatinine Clear Calc Drug Dose 98.0 ml/min 91.9 ml/min Estimated GFR () 116.8 113.2 Estimated GFR (Non- 100.8 97.6 BUN/Creatinine Ratio 11.3 6.1 Random Glucose 106 mg/dl 94 mg/dl Lactic Acid Level 0.6 mmol/L Calcium Level 6.9 mg/dl 7.6 mg/dl Total Bilirubin 0.5 mg/dl 0.4 mg/dl Aspartate Amino Transf (AST/SGOT) 8 U/L 12 U/L Alanine Aminotransferase (ALT/SGPT) 11 U/L 12 U/L Alkaline Phosphatase 42 U/L 47 U/L Total Protein 5.2 gm/dl 6.1 gm/dl Albumin 2.2 gm/dl 2.5 gm/dl Globulin 3.0 gm/dl 3.6 gm/dl Albumin/Globulin Ratio 0.7 0.7 Random Cortisol 10.82 mcg/dl Urine Color YELLOW Urine Appearance CLOUDY Urine pH 5.5 Urine Specific [place] 1.020 Urine Protein NEG Urine Glucose (UA) NEG Urine Ketones TRACE Urine Occult Blood NEG Urine Nitrite NEG Urine Bilirubin NEG Urine Urobilinogen NEG Urine Leukocyte Esterase SMALL Urine WBC (Auto) 10-30 /hpf Urine RBC (Auto) 0-4 /hpf Urine Hyaline Casts (Auto) 1-5 /lpf Urine Epithelial Cells (Auto) >30 /lpf Urine Bacteria (Auto) NEG White Blood Count 11.57 K/uL Red Blood Count 4.52 M/uL Hemoglobin 13.2 g/dL Hematocrit 40.4 % Mean Corpuscular Volume 89.4 fL Mean Corpuscular Hemoglobin 29.2 pg Mean Corpuscular Hemoglobin Concent 32.7 g/dl Platelet Count 195 K/uL Mean Platelet Volume 9.7 fL Neutrophils (%) (Auto) 82.9 % Lymphocytes (%) (Auto) 10.2 % Monocytes (%) (Auto) 6.2 % Eosinophils (%) (Auto) 0.4 % Basophils (%) (Auto) 0.1 % Neutrophils # (Auto) 9.59 K/uL Lymphocytes # (Auto) 1.18 K/uL Monocytes # (Auto) 0.72 K/uL Eosinophils # (Auto) 0.05 K/uL Basophils # (Auto) 0.01 K/uL RDW Standard Deviation 47.3 fL RDW Coefficient of Variation 14.4 % Immature Granulocyte % (Auto) 0.2 % Immature Granulocyte # (Auto) 0.02 K/uL
--- NOTE | 2017-05-03 10:00 | Medical Consult ---
Consultation Date of Consultation: May 03, 2017. Attending Physician: Rome Granados D.O. History of Present Illness 66 y/o female admitted overnight for diverticulitis. She was treated with outpatient cipro/flagyl two weeks ago. She began having pain again 2 days ago and antibiotics were re-ordered, she came to the ED last night because she was not getting better. She feels better this morning. Has had several loose bowel movements this AM. No fevers or chills. She was admitted in December for diverticulitis. She had outpatient colonoscopy in February. Past Medical/Surgical History Medical Problems: (1) Diffuse abdominal pain Status: Acute (2) Diverticulitis Status: Acute (3) Nausea Status: Acute (4) Sepsis Status: Acute Surgical Problems: (1) H/O: hysterectomy Family History No pertinent family history Social History Smoking Status: Current Every Day Smoker (Started smoking at 18) Marital Status: Housing Status: lives with family Allergies Coded Allergies: Codeine (Verified Allergy, Mild, GI SYMPTOMS, 04/15/17) nauseated Morphine (Verified Adverse Reaction, Intermediate, nausea and vomiting, 07/23) Current Inpatient Medications Current Inpatient Medications Medications (Trade) Dose Ordered Sig/Jordan Route Start Time Stop Time Status Last Admin Dose Admin Ioversol (Optiray 320) 125 ml UD PRN IV 05/02/17 08:30 05/06/17 08:29 Enoxaparin Sodium (Lovenox Inj) 40 mg Q24H SC 05/02/17 20:00 06/01/17 19:59 05/02/17 20:29 40 MG Acetaminophen (Tylenol Tab) 650 mg Q4H PRN PO 05/02/17 10:15 06/01/17 10:14 05/03/17 00:59 650 MG Al Hydrox/Mg Hydrox/Simethicone (Maalox Max Susp) 15 ml Q4H PRN PO 05/02/17 10:15 06/01/17 10:14 Magnesium Hydroxide (Milk Of Magnesia Susp) 30 ml Q12H PRN PO 05/02/17 10:15 06/01/17 10:14 Zolpidem Tartrate (Ambien Tab) 5 mg HSZ PRN PO 05/02/17 10:15 06/01/17 10:14 Piperacillin Sod/ Tazobactam Sod 3.375 gm/Dextrose 115 ml @ 28.75 mls/ hr Q8H IV 05/02/17 14:00 05/12/17 13:59 05/03/17 05:42 28.75 MLS/HR Lactobacillus Acidophilus (Lactinex Granules Pack) 1 gm TIDM PO 05/02/17 12:00 06/01/17 11:59 05/02/17 17:11 1 GM Nicotine (Nicoderm Cq 14MG Patch) 1 patch QAM TD 05/03/17 09:00 06/02/17 08:59 05/03/17 07:40 1 PATCH Miscellaneous (Remove Nicoderm Patch) 1 ea HS N/A 05/02/17 21:00 06/01/17 20:59 Ciprofloxacin HCl (Ciloxan 0.3% Op Oint) 1 appln TID OP 05/02/17 14:00 05/12/17 13:59 05/03/17 07:40 1 APPLN Piperacillin Sod/ Tazobactam Sod (Consult) 1 ea UD PRN N/A 05/02/17 11:45 06/01/17 11:44 Sodium Chloride 1,000 ml @ 100 mls/hr Q10H IV 05/02/17 16:00 06/01/17 15:59 Future hold 05/03/17 02:08 100 MLS/HR Review of Systems Constitutional: No fever, No chills Abdomen: + pain, + diarrhea (this AM), + constipation (in the past), No nausea , No vomiting Physical Exam Date Time Temp Pulse Resp B/P (MAP) Pulse Ox O2 Delivery O2 Flow Rate FiO2 05/03/17 08:00 Room Air 05/03/17 07:21 37.3 80 18 101/66 (78) 95 Room Air 05/03/17 04:00 Room Air 05/03/17 04:00 37.1 93 20 107/72 (84) 92 Room Air 05/03/17 00:11 36.9 94 18 95/63 (74) 92 Room Air 05/03/17 00:00 Room Air 05/02/17 20:00 Room Air 05/02/17 19:55 36.9 77 18 100/65 (77) 91 Room Air 05/02/17 18:10 85/60 (68) 78/45 (56) 05/02/17 16:10 36.5 80 18 90/58 (69) 91 Room Air 05/02/17 16:00 Room Air 05/02/17 15:57 36.5 80 18 90/58 (69) 88 Room Air 05/02/17 15:56 36.6 81 18 83/57 (66) 93 Room Air 05/02/17 14:37 81 83/57 (66) 05/02/17 12:00 Room Air 05/02/17 11:25 36.6 82 18 75/52 (60) 93 Room Air 05/02/17 11:03 101/67 05/02/17 10:38 94/59 05/02/17 10:21 86 18 77/59 95 05/02/17 09:50 95 Room Air General Appearance: no apparent distress ENT: normal ENT inspection Respiratory/Chest: lungs clear, normal breath sounds Cardiovascular: regular rate, rhythm Abdomen/GI: soft, + tenderness (mild LLQ), + distended (minimal) Laboratory Results Last 24 Hours Test 05/02/17 12:02 05/02/17 19:20 05/03/17 00:45 05/03/17 08:14 Prothrombin Time 12.2 SECONDS Prothromb Time International Ratio 1.1 Sodium Level 139 mmol/L 140 mmol/L Potassium Level 3.6 mmol/L 3.7 mmol/L Chloride Level 111 mmol/L 108 mmol/L Carbon Dioxide Level 26 mmol/L 25 mmol/L Anion Gap 2.0 mmol/L 7.0 mmol/L Blood Urea Nitrogen 6 mg/dl 3 mg/dl Creatinine 0.49 mg/dl 0.54 mg/dl Est Creatinine Clear Calc Drug Dose 98.0 ml/min 91.9 ml/min Estimated GFR () 116.8 113.2 Estimated GFR (Non- 100.8 97.6 BUN/Creatinine Ratio 11.3 6.1 Random Glucose 106 mg/dl 94 mg/dl Lactic Acid Level 0.6 mmol/L Calcium Level 6.9 mg/dl 7.6 mg/dl Total Bilirubin 0.5 mg/dl 0.4 mg/dl Aspartate Amino Transf (AST/SGOT) 8 U/L 12 U/L Alanine Aminotransferase (ALT/SGPT) 11 U/L 12 U/L Alkaline Phosphatase 42 U/L 47 U/L Total Protein 5.2 gm/dl 6.1 gm/dl Albumin 2.2 gm/dl 2.5 gm/dl Globulin 3.0 gm/dl 3.6 gm/dl Albumin/Globulin Ratio 0.7 0.7 Random Cortisol 10.82 mcg/dl Urine Color YELLOW Urine Appearance CLOUDY Urine pH 5.5 Urine Specific [place] 1.020 Urine Protein NEG Urine Glucose (UA) NEG Urine Ketones TRACE Urine Occult Blood NEG Urine Nitrite NEG Urine Bilirubin NEG Urine Urobilinogen NEG Urine Leukocyte Esterase SMALL Urine WBC (Auto) 10-30 /hpf Urine RBC (Auto) 0-4 /hpf Urine Hyaline Casts (Auto) 1-5 /lpf Urine Epithelial Cells (Auto) >30 /lpf Urine Bacteria (Auto) NEG White Blood Count 11.57 K/uL Red Blood Count 4.52 M/uL Hemoglobin 13.2 g/dL Hematocrit 40.4 % Mean Corpuscular Volume 89.4 fL Mean Corpuscular Hemoglobin 29.2 pg Mean Corpuscular Hemoglobin Concent 32.7 g/dl Platelet Count 195 K/uL Mean Platelet Volume 9.7 fL Neutrophils (%) (Auto) 82.9 % Lymphocytes (%) (Auto) 10.2 % Monocytes (%) (Auto) 6.2 % Eosinophils (%) (Auto) 0.4 % Basophils (%) (Auto) 0.1 % Neutrophils # (Auto) 9.59 K/uL Lymphocytes # (Auto) 1.18 K/uL Monocytes # (Auto) 0.72 K/uL Eosinophils # (Auto) 0.05 K/uL Basophils # (Auto) 0.01 K/uL RDW Standard Deviation 47.3 fL RDW Coefficient of Variation 14.4 % Immature Granulocyte % (Auto) 0.2 % Immature Granulocyte # (Auto) 0.02 K/uL CT IMPRESSION: 1. Progressive acute diverticulitis with extensive infiltrative change of the fat and fascial planes throughout the soft tissue pelvis. 2. 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 3. Small bowel wall edematous change creates at least partial bowel obstructive change 4. No evidence for drainable abscess or collection at the current time. 5. No evidence for pneumatosis or free air The above report was generated using voice recognition software. It may contain grammatical, syntax or spelling errors. Electronically signed by: Remi Parham M.D. 05/02/2017 9:24 AM Dictated Date/Time: 05/02/2017 9:06 AM Assessment & Plan recurrent diverticulitis with coloenteric fistula No acute abdominal findings, WBC improved, bowel function returned. Continue IV Zosyn. Can have clears. Hopefully will continue to improve and can be seen in clinic to schedule semi-elective colectomy in about [address] Brush. as above. pt feeling better already. wbc decreased. prob ok to give some clears. will follow along. will discuss elective resection of fistula and sigmoid colon.
--- NOTE | 2017-05-03 12:35 | Hospitalist Progress Note ---
Hospitalist Progress Note Date of Service May 03, 2017. (Vikki Banks ., PA-C) Subjective Pt evaluation today including: conversation w/ patient, conversation w/ family ( at bedside), physical exam, chart review, lab review, review of inpatient medication list Pain: 8/10 aching LLQ pain with movement PO Intake: Tolerating clear liquid diet Voiding: no voiding problems Patient reports feeling better today compared to yesterday. She states her pain is improved. She denies abdominal pain at rest, but she still can have up to an 8/10 aching pain in her LLQ with any movement. She is tolerating a clear liquid diet well without any nausea, vomiting, or worsening abdominal pain. She does complain of generalized weakness and fatigue. The patient denies fevers, chills, sweats, chest pain, palpitations, claudication, cough, wheezing , shortness of breath, nausea, vomiting, dysuria, hematuria, urinary retention, paralysis, motor weakness, numbness and tingling. Additional Comments: See HPI for pertinent positives and negatives. All other systems reviewed and negative. (Vikki Banks ., PA-C) Objective Vital Signs Date Time Temp Pulse Resp B/P (MAP) Pulse Ox O2 Delivery O2 Flow Rate FiO2 05/03/17 12:00 Room Air 05/03/17 11:25 36.8 77 18 100/62 (75) 93 Room Air 05/03/17 08:00 Room Air 05/03/17 07:21 37.3 80 18 101/66 (78) 95 Room Air 05/03/17 04:00 Room Air 05/03/17 04:00 37.1 93 20 107/72 (84) 92 Room Air 05/03/17 00:11 36.9 94 18 95/63 (74) 92 Room Air 05/03/17 00:00 Room Air 05/02/17 20:00 Room Air 05/02/17 19:55 36.9 77 18 100/65 (77) 91 Room Air 05/02/17 18:10 85/60 (68) 78/45 (56) 05/02/17 16:10 36.5 80 18 90/58 (69) 91 Room Air 05/02/17 16:00 Room Air 05/02/17 15:57 36.5 80 18 90/58 (69) 88 Room Air 05/02/17 15:56 36.6 81 18 83/57 (66) 93 Room Air 05/02/17 14:37 81 83/57 (66) (Vikki Banks PA-C) Physical Exam Notes: General appearance: Well-developed, well-nourished, no apparent distress Head: Normocephalic, atraumatic Eyes: Normal inspection, PERRL, EOMI ENT: Normal ENT inspection, hearing grossly normal, pharynx normal Neck: Supple, no JVD, trachea midline Respiratory/Chest: Lungs clear to auscultation, normal breath sounds, no respiratory distress Cardiovascular: Regular rate & rhythm, no gallop, no murmur Abdomen/GI: +RLQ and LLQ TTP. Normal bowel sounds, soft Extremities/Musculoskeletal: Normal inspection, no calf tenderness, no pedal edema Neurological/Psych: Alert, normal mood/affect, oriented x 3 Skin: Normal color, warm/dry, no rash (Vikki Banks PA-C) Laboratory Results Last 24 Hours Test 05/02/17 19:20 05/03/17 00:45 05/03/17 08:14 Sodium Level 139 mmol/L 140 mmol/L Potassium Level 3.6 mmol/L 3.7 mmol/L Chloride Level 111 mmol/L 108 mmol/L Carbon Dioxide Level 26 mmol/L 25 mmol/L Anion Gap 2.0 mmol/L 7.0 mmol/L Blood Urea Nitrogen 6 mg/dl 3 mg/dl Creatinine 0.49 mg/dl 0.54 mg/dl Est Creatinine Clear Calc Drug Dose 98.0 ml/min 91.9 ml/min Estimated GFR () 116.8 113.2 Estimated GFR (Non- 100.8 97.6 BUN/Creatinine Ratio 11.3 6.1 Random Glucose 106 mg/dl 94 mg/dl Lactic Acid Level 0.6 mmol/L Calcium Level 6.9 mg/dl 7.6 mg/dl Total Bilirubin 0.5 mg/dl 0.4 mg/dl Aspartate Amino Transf (AST/SGOT) 8 U/L 12 U/L Alanine Aminotransferase (ALT/SGPT) 11 U/L 12 U/L Alkaline Phosphatase 42 U/L 47 U/L Total Protein 5.2 gm/dl 6.1 gm/dl Albumin 2.2 gm/dl 2.5 gm/dl Globulin 3.0 gm/dl 3.6 gm/dl Albumin/Globulin Ratio 0.7 0.7 Random Cortisol 10.82 mcg/dl Urine Color YELLOW Urine Appearance CLOUDY Urine pH 5.5 Urine Specific [place] 1.020 Urine Protein NEG Urine Glucose (UA) NEG Urine Ketones TRACE Urine Occult Blood NEG Urine Nitrite NEG Urine Bilirubin NEG Urine Urobilinogen NEG Urine Leukocyte Esterase SMALL Urine WBC (Auto) 10-30 /hpf Urine RBC (Auto) 0-4 /hpf Urine Hyaline Casts (Auto) 1-5 /lpf Urine Epithelial Cells (Auto) >30 /lpf Urine Bacteria (Auto) NEG White Blood Count 11.57 K/uL Red Blood Count 4.52 M/uL Hemoglobin 13.2 g/dL Hematocrit 40.4 % Mean Corpuscular Volume 89.4 fL Mean Corpuscular Hemoglobin 29.2 pg Mean Corpuscular Hemoglobin Concent 32.7 g/dl Platelet Count 195 K/uL Mean Platelet Volume 9.7 fL Neutrophils (%) (Auto) 82.9 % Lymphocytes (%) (Auto) 10.2 % Monocytes (%) (Auto) 6.2 % Eosinophils (%) (Auto) 0.4 % Basophils (%) (Auto) 0.1 % Neutrophils # (Auto) 9.59 K/uL Lymphocytes # (Auto) 1.18 K/uL Monocytes # (Auto) 0.72 K/uL Eosinophils # (Auto) 0.05 K/uL Basophils # (Auto) 0.01 K/uL RDW Standard Deviation 47.3 fL RDW Coefficient of Variation 14.4 % Immature Granulocyte % (Auto) 0.2 % Immature Granulocyte # (Auto) 0.02 K/uL (Vikki Banks ., RICHC) Assessment and Plan 66 y/o female with a history of recurrent diverticulitis who presents to the ED on 05/02 with worsening abdominal pain. This is the patient's 3rd episode of diverticulitis in the last 4 months. The patient again began to develop symptoms a few days ago and was prescribed Cipro and Flagyl by her PCP, but her symptoms continued to worsen, prompting her to come to the ED for further evaluation. Pt afebrile on arrival but hypotensive and tachycardic. This did improve with IVF. CT abdomen and pelvis shows progressive acute diverticulitis with extensive infiltrative change of the fat and fascial planes throughout the soft tissue pelvis. There is also considerable reactive small bowel wall edema with a coloenteric fistula again noted. Small bowel wall edematous change creates at least partial bowel obstructive change. No abscess or pneumatosis. WBC elevated at 19.2. Acute diverticulitis, h/o recurrent diverticulitis, h/o coloenteric fistula-- improving -Admit to tele. No acute events overnight. Pt in SR with PVCs, HR in 70s-80s. BP stable and HR controlled. Transfer to med/surg 05/03 -GI consulted, appreciate recs: recommend general surgery consult. Continue IV Zosyn and liquid diet. Supportive care per primary team. -General surgery consulted, appreciate recs: Continue Zosyn. May advance to clear liquid diet. Will see patient in clinic to schedule semi-elective colectomy in about 6 weeks. -Continue Zosyn IV -IVF with NSS at 100 cc/hr -Advance to clear liquid diet Right eye conjunctivitis--improving -Continue Cipro eye drops Tobacco dependence -Continue nicotine patch 14 mg -Smoking cessation GI prophylaxis -Maalox Max 15 mL PO q4h prn dyspepsia -Milk of magnesia 30 mL PO q6h prn constipation -Lactobacillus TIDM DVT prophylaxis -Enoxaparin 40 mg SC q24h -SCDs Code Status -Level I, FULL RESUSCITATION STATUS (Vikki Banks ., PA-C) I agree with PA assessment and plan and have seen and examined pt myself Resting comfortably in bed States improvement in discomfort WBC trending down Labs and vitals reviewed Appreciate gen surg recs, ok to advance diet to liquids, elective colectomy as OP ([place] Granados D.OShelbie)
[2017-05-03] MEDS: ENOXAPARIN 40 MG/0.4 ML SYR SC SCH (19:57)
[2017-05-04 00:04] VITALS: BP 122/74; PULSE 74; TEMP 36.6; O2SAT 90
[2017-05-04] MEDS: PIPERACILL/TAZOBAC IV 3.375 GM in DEXTROSE 5% 100ML 100 ML IV SCH ×3 (05:39→21:53)
[2017-05-04 07:18] LABS: BASO % 0.1 %; BASO ABS # 0.01 K/uL (0-0.2); COMPLETE YES; EOS % 1.2 %; HEMATOCRIT 40.6 % (37-47); IG% 0.1 %; LYMPH % 13.5 %; LYMPH ABS # 1.04 K/uL (1.2-3.4); MEAN CELL VOLUME 88.1 fL (80-100); MEAN CORPUSCULAR HEMOGLOBIN 29.1 pg (25-34); MEAN PLATELET VOLUME 9.7 fL (7.4-10.4); MONO % 6.7 %; NEUT % 78.4 %; PLATELET COUNT 187 K/uL (130-400); RED BLOOD COUNT 4.61 M/uL (4.2-5.4); WHITE BLOOD COUNT 7.71 K/uL (4.8-10.8)
[2017-05-04 07:25] VITALS: BP_SYST 151; BP_SYST 159; BP_DIAS 92; BP_DIAS 98; PULSE 67; TEMP 36.7; O2SAT 95
[2017-05-04] MEDS: NICOTINE 14 MG/24 HR TDSY TD SCH (07:38)
[2017-05-04] MEDS: SODIUM CHLORIDE 0.9% 1000ML 1,000 ML IV SCH ×2 (07:38→16:42)
[2017-05-04] MEDS: LACTOBACILLUS ACIDOPHILUS 1 GM PACK PO SCH ×3 (07:38→16:42)
[2017-05-04] MEDS: CIPROFLOXACIN HCL 3.5 GM TUBE OP SCH ×3 (07:38→21:05)
[2017-05-04 07:47] LABS: BUN/CREATININE RATIO 3.5 (10-20); CALCIUM 8.1 mg/dl (8.5-10.1); CREATININE 0.42 mg/dl (0.60-1.20); POTASSIUM 3.5 mmol/L (3.5-5.1)
[2017-05-04] MEDS: ACETAMINOPHEN 325 MG TAB PO PRN ×3 (07:47→19:17)
--- NOTE | 2017-05-04 11:32 | Surgery Progress Note ---
Surgery Progress Note Date of Service May 04, 2017. Subjective No nausea, No vomiting Pain has decreased Objective Vital Signs: Date Time Temp Pulse Resp B/P (MAP) Pulse Ox O2 Delivery O2 Flow Rate FiO2 05/04/17 08:00 Room Air 05/04/17 07:25 36.7 67 16 159/92 (114) 95 151/98 (115) 05/04/17 00:04 36.6 74 16 122/74 (90) 90 Room Air 05/04/17 00:00 Room Air 05/03/17 20:00 Room Air 05/03/17 19:44 36.3 72 18 123/87 (99) 95 Room Air 05/03/17 16:02 94 Room Air 05/03/17 15:11 36.7 77 17 124/83 (97) 94 Room Air 05/03/17 12:00 Room Air Abdomen: normal bowel sounds, non distended, soft, + tenderness (mild to moderate mostly in suprapubic area) Laboratory Results: Results Past 24 Hours Test 05/04/17 07:02 Range/Units White Blood Count 7.71 4.8-10.8 K/uL Red Blood Count 4.61 4.2-5.4 M/uL Hemoglobin 13.4 12.0-16.0 g/dL Hematocrit 40.6 37-47 % Mean Corpuscular Volume 88.1 80-100 fL Mean Corpuscular Hemoglobin 29.1 25-34 pg Mean Corpuscular Hemoglobin Concent 33.0 32-36 g/dl Platelet Count 187 130-400 K/uL Mean Platelet Volume 9.7 7.4-10.4 fL Neutrophils (%) (Auto) 78.4 % Lymphocytes (%) (Auto) 13.5 % Monocytes (%) (Auto) 6.7 % Eosinophils (%) (Auto) 1.2 % Basophils (%) (Auto) 0.1 % Neutrophils # (Auto) 6.04 1.4-6.5 K/uL Lymphocytes # (Auto) 1.04 1.2-3.4 K/uL Monocytes # (Auto) 0.52 0.11-0.59 K/uL Eosinophils # (Auto) 0.09 0-0.5 K/uL Basophils # (Auto) 0.01 0-0.2 K/uL RDW Standard Deviation 45.3 36.4-46.3 fL RDW Coefficient of Variation 14.0 11.5-14.5 % Immature Granulocyte % (Auto) 0.1 % Immature Granulocyte # (Auto) 0.01 0.00-0.02 K/uL Sodium Level 141 136-145 mmol/L Potassium Level 3.5 3.5-5.1 mmol/L Chloride Level 111 98-107 mmol/L Carbon Dioxide Level 26 21-32 mmol/L Anion Gap 4.0 3-11 mmol/L Blood Urea Nitrogen 1 7-18 mg/dl Creatinine 0.42 0.60-1.20 mg/dl Est Creatinine Clear Calc Drug Dose 118.1 ml/min Estimated GFR () 122.9 Estimated GFR (Non- 106.1 BUN/Creatinine Ratio 3.5 10-20 Random Glucose 96 70-99 mg/dl Calcium Level 8.1 8.5-10.1 mg/dl Assessment & Plan Recurrent diverticulitis with coloenteric fistula Symptoms and exam improved Continue conservative management WBC normal
--- NOTE | 2017-05-04 14:48 | Progress Note ---
Subjective Date of Service: May 04, 2017. Subjective Pt evaluation today including: conversation w/ patient, physical exam, chart review, lab review, review of studies, review of inpatient medication list Resting comfortably in bed Pain reduced No acute events overnight Problem List Medical Problems: (1) Diffuse abdominal pain Status: Acute (2) Diverticulitis Status: Acute (3) Nausea Status: Acute (4) Sepsis Status: Acute Review of Systems Constitutional: No fever, No chills, No sweats, No weight loss, No weakness ENT: No hearing loss, No unusual epistaxis, No nasal symptoms, No sore throat, No tinnitus Respiratory: No cough, No sputum, No wheezing, No shortness of breath, No dyspnea on exertion Cardiac: No chest pain, No orthopnea, No PND, No edema, No claudication Abdomen: No pain, No nausea, No vomiting, No diarrhea, No constipation Musculoskeletal: No joint pain, No muscle pain, No swelling Female : No dysuria, No urinary frequency, No hematuria, No incontinence Neurologic: No memory loss, No paralysis, No weakness, No numbness/tingling Psychiatric: No depression symptoms, No anhedonism, No anxiety, No insomnia Endo: No fatigue, No excessive thirst Skin: No rash, No itch Objective Vital Signs Date Time Temp Pulse Resp B/P (MAP) Pulse Ox O2 Delivery O2 Flow Rate FiO2 05/04/17 08:00 Room Air 05/04/17 07:25 36.7 67 16 159/92 (114) 95 151/98 (115) 05/04/17 00:04 36.6 74 16 122/74 (90) 90 Room Air 05/04/17 00:00 Room Air 05/03/17 20:00 Room Air 05/03/17 19:44 36.3 72 18 123/87 (99) 95 Room Air 05/03/17 16:02 94 Room Air 05/03/17 15:11 36.7 77 17 124/83 (97) 94 Room Air Physical Exam General Appearance: WD/WN, no apparent distress Eyes: normal inspection, PERRL, EOMI, sclerae normal Neck: supple, no adenopathy, thyroid normal, no JVD Respiratory/Chest: chest non-tender, lungs clear, normal breath sounds, no respiratory distress Cardiovascular: regular rate, rhythm, no edema, no gallop, no JVD Abdomen: normal bowel sounds, non tender, soft, no organomegaly Extremities: normal range of motion, non-tender, normal inspection, no pedal edema Neurologic/Psychiatric: no motor/sensory deficits, alert, normal mood/affect, oriented x 3 Skin: normal color, warm/dry, no rash Lymphatic: no adenopathy Laboratory Results Last 24 Hours Test 05/04/17 07:02 White Blood Count 7.71 K/uL Red Blood Count 4.61 M/uL Hemoglobin 13.4 g/dL Hematocrit 40.6 % Mean Corpuscular Volume 88.1 fL Mean Corpuscular Hemoglobin 29.1 pg Mean Corpuscular Hemoglobin Concent 33.0 g/dl Platelet Count 187 K/uL Mean Platelet Volume 9.7 fL Neutrophils (%) (Auto) 78.4 % Lymphocytes (%) (Auto) 13.5 % Monocytes (%) (Auto) 6.7 % Eosinophils (%) (Auto) 1.2 % Basophils (%) (Auto) 0.1 % Neutrophils # (Auto) 6.04 K/uL Lymphocytes # (Auto) 1.04 K/uL Monocytes # (Auto) 0.52 K/uL Eosinophils # (Auto) 0.09 K/uL Basophils # (Auto) 0.01 K/uL RDW Standard Deviation 45.3 fL RDW Coefficient of Variation 14.0 % Immature Granulocyte % (Auto) 0.1 % Immature Granulocyte # (Auto) 0.01 K/uL Sodium Level 141 mmol/L Potassium Level 3.5 mmol/L Chloride Level 111 mmol/L Carbon Dioxide Level 26 mmol/L Anion Gap 4.0 mmol/L Blood Urea Nitrogen 1 mg/dl Creatinine 0.42 mg/dl Est Creatinine Clear Calc Drug Dose 118.1 ml/min Estimated GFR () 122.9 Estimated GFR (Non- 106.1 BUN/Creatinine Ratio 3.5 Random Glucose 96 mg/dl Calcium Level 8.1 mg/dl Assessment and Plan 66 y/o female with a history of recurrent diverticulitis who presents to the ED on 05/02 with worsening abdominal pain. This is the patient's 3rd episode of diverticulitis in the last 4 months. The patient again began to develop symptoms a few days ago and was prescribed Cipro and Flagyl by her PCP, but her symptoms continued to worsen, prompting her to come to the ED for further evaluation. Pt afebrile on arrival but hypotensive and tachycardic. This did improve with IVF. CT abdomen and pelvis shows progressive acute diverticulitis with extensive infiltrative change of the fat and fascial planes throughout the soft tissue pelvis. There is also considerable reactive small bowel wall edema with a coloenteric fistula again noted. Small bowel wall edematous change creates at least partial bowel obstructive change. No abscess or pneumatosis. WBC elevated at 19.2. Acute diverticulitis, h/o recurrent diverticulitis, h/o coloenteric fistula-- improving -Admit to tele. -GI consulted, appreciate recs: recommend general surgery consult. Continue IV Zosyn and liquid diet. Supportive care per primary team. -General surgery consulted, appreciate recs: Continue Zosyn. May advance diet. Will see patient in clinic to schedule semi-elective colectomy in about 6 weeks. -Continue Zosyn IV, leukocytosis resolved -IVF with NSS at 100 cc/hr Right eye conjunctivitis--improving -Continue Cipro eye drops Tobacco dependence -Continue nicotine patch 14 mg -Smoking cessation GI prophylaxis -Maalox Max 15 mL PO q4h prn dyspepsia -Milk of magnesia 30 mL PO q6h prn constipation -Lactobacillus TIDM DVT prophylaxis -Enoxaparin 40 mg SC q24h -SCDs Code Status -Level I, FULL RESUSCITATION STATUS
[2017-05-04 15:11] VITALS: BP 156/96; PULSE 65; TEMP 36.5; O2SAT 95
[2017-05-04] MEDS ORDERED: NURSING VERBAL MED ORDER ONE (17:15)
[2017-05-04] MEDS: ENOXAPARIN 40 MG/0.4 ML SYR SC SCH (21:04)
[2017-05-04 23:39] VITALS: BP 152/90; PULSE 85; TEMP 36.8; O2SAT 94
[2017-05-05] MEDS: SODIUM CHLORIDE 0.9% 1000ML 1,000 ML IV SCH ×2 (01:40→11:59)
[2017-05-05] MEDS: PIPERACILL/TAZOBAC IV 3.375 GM in DEXTROSE 5% 100ML 100 ML IV SCH ×3 (05:49→21:30)
[2017-05-05 07:42] VITALS: BP_SYST 159; BP_SYST 160; BP_DIAS 96; BP_DIAS 98; PULSE 63; TEMP 36.8; O2SAT 95
[2017-05-05] MEDS: LACTOBACILLUS ACIDOPHILUS (FLORANEX) TAB PO SCH ×3 (07:45→16:59)
[2017-05-05] MEDS: CIPROFLOXACIN HCL 3.5 GM TUBE OP SCH ×3 (07:45→21:29)
[2017-05-05] MEDS: NICOTINE 14 MG/24 HR TDSY TD SCH (07:46)
[2017-05-05] MEDS: ACETAMINOPHEN 325 MG TAB PO PRN ×2 (07:46→15:44)
[2017-05-05 08:15] LABS: BASO % 0.2 %; BASO ABS # 0.02 K/uL (0-0.2); COMPLETE YES; EOS % 0.6 %; HEMATOCRIT 42.1 % (37-47); IG% 0.2 %; LYMPH ABS # 1.21 K/uL (1.2-3.4); MEAN CELL VOLUME 86.6 fL (80-100); MEAN CORPUSCULAR HEMOGLOBIN 28.8 pg (25-34); MEAN CORPUSCULAR HGB CONC 33.3 g/dl (32-36); MEAN PLATELET VOLUME 9.9 fL (7.4-10.4); MONO % 6.2 %; NEUT % 77.8 %; PLATELET COUNT 235 K/uL (130-400); RED BLOOD COUNT 4.86 M/uL (4.2-5.4); WHITE BLOOD COUNT 8.04 K/uL (4.8-10.8)
[2017-05-05 08:52] LABS: BLOOD UREA NITROGEN < 1 mg/dl (7-18); CALCIUM 8.3 mg/dl (8.5-10.1); CARBON DIOXIDE 27 mmol/L (21-32); CHLORIDE 107 mmol/L (98-107); CREATININE 0.44 mg/dl (0.60-1.20); GLUCOSE 96 mg/dl (70-99); POTASSIUM 3.2 mmol/L (3.5-5.1); SODIUM 143 mmol/L (136-145)
--- NOTE | 2017-05-05 12:49 | Surgery Progress Note ---
Surgery Progress Note Date of Service May 05, 2017. Subjective + bowel movement, + flatus, + diet (tolerating), No nausea, No vomiting Feels much better today, having very little pain Objective Vital Signs: Date Time Temp Pulse Resp B/P (MAP) Pulse Ox O2 Delivery O2 Flow Rate FiO2 05/05/17 08:00 Room Air 05/05/17 07:42 36.8 63 16 159/96 (117) 95 160/98 (118) 05/05/17 00:00 Room Air 05/04/17 23:39 36.8 85 18 152/90 (110) 94 Room Air 05/04/17 16:00 Room Air 05/04/17 15:11 36.5 65 16 156/96 (116) 95 Abdomen: normal bowel sounds, non distended, soft, + tenderness (minimal today) Laboratory Results: Results Past 24 Hours Test 05/05/17 07:36 Range/Units White Blood Count 8.04 4.8-10.8 K/uL Red Blood Count 4.86 4.2-5.4 M/uL Hemoglobin 14.0 12.0-16.0 g/dL Hematocrit 42.1 37-47 % Mean Corpuscular Volume 86.6 80-100 fL Mean Corpuscular Hemoglobin 28.8 25-34 pg Mean Corpuscular Hemoglobin Concent 33.3 32-36 g/dl Platelet Count 235 130-400 K/uL Mean Platelet Volume 9.9 7.4-10.4 fL Neutrophils (%) (Auto) 77.8 % Lymphocytes (%) (Auto) 15.0 % Monocytes (%) (Auto) 6.2 % Eosinophils (%) (Auto) 0.6 % Basophils (%) (Auto) 0.2 % Neutrophils # (Auto) 6.24 1.4-6.5 K/uL Lymphocytes # (Auto) 1.21 1.2-3.4 K/uL Monocytes # (Auto) 0.50 0.11-0.59 K/uL Eosinophils # (Auto) 0.05 0-0.5 K/uL Basophils # (Auto) 0.02 0-0.2 K/uL RDW Standard Deviation 43.5 36.4-46.3 fL RDW Coefficient of Variation 13.7 11.5-14.5 % Immature Granulocyte % (Auto) 0.2 % Immature Granulocyte # (Auto) 0.02 0.00-0.02 K/uL Sodium Level 143 136-145 mmol/L Potassium Level 3.2 3.5-5.1 mmol/L Chloride Level 107 98-107 mmol/L Carbon Dioxide Level 27 21-32 mmol/L Anion Gap 9.0 3-11 mmol/L Blood Urea Nitrogen < 1 7-18 mg/dl Creatinine 0.44 0.60-1.20 mg/dl Est Creatinine Clear Calc Drug Dose 112.8 ml/min Estimated GFR () 121.1 Estimated GFR (Non- 104.5 BUN/Creatinine Ratio 10-20 Random Glucose 96 70-99 mg/dl Calcium Level 8.3 8.5-10.1 mg/dl Assessment & Plan Recurrent diverticulitis with coloenteric fistula Symptoms and exam much improved Continue conservative management WBC normal
--- NOTE | 2017-05-05 12:56 | Progress Note ---
Subjective Date of Service: May 05, 2017. Subjective Pt evaluation today including: conversation w/ patient, physical exam, chart review, lab review, review of studies, review of inpatient medication list Resting comfortably in bed States pain resolved No N/V/D Problem List Medical Problems: (1) Diffuse abdominal pain Status: Acute (2) Diverticulitis Status: Acute (3) Nausea Status: Acute (4) Sepsis Status: Acute Review of Systems Constitutional: No fever, No chills, No sweats, No weight loss, No weakness Eyes: No worsening of vision, No eye pain, No redness, No discharge Respiratory: No cough, No sputum, No wheezing, No shortness of breath, No dyspnea on exertion Cardiac: No chest pain, No orthopnea, No PND, No edema Abdomen: No pain, No nausea, No vomiting, No diarrhea, No constipation Musculoskeletal: No joint pain, No muscle pain, No swelling, No calf pain Female : No dysuria, No urinary frequency, No hematuria, No incontinence Neurologic: No memory loss, No paralysis, No weakness, No numbness/tingling Psychiatric: No depression symptoms, No anhedonism, No anxiety, No insomnia Endo: No fatigue, No excessive thirst Skin: No rash, No itch Objective Vital Signs Date Time Temp Pulse Resp B/P (MAP) Pulse Ox O2 Delivery O2 Flow Rate FiO2 05/05/17 08:00 Room Air 05/05/17 07:42 36.8 63 16 159/96 (117) 95 160/98 (118) 05/05/17 00:00 Room Air 05/04/17 23:39 36.8 85 18 152/90 (110) 94 Room Air 05/04/17 16:00 Room Air 05/04/17 15:11 36.5 65 16 156/96 (116) 95 Physical Exam General Appearance: WD/WN, no apparent distress Neck: supple, no adenopathy Respiratory/Chest: chest non-tender, lungs clear, normal breath sounds, no respiratory distress Cardiovascular: regular rate, rhythm, no edema, no gallop, no JVD Abdomen: normal bowel sounds, non tender, soft Neurologic/Psychiatric: alert, normal mood/affect, oriented x 3 Laboratory Results Last 24 Hours Test 05/05/17 07:36 White Blood Count 8.04 K/uL Red Blood Count 4.86 M/uL Hemoglobin 14.0 g/dL Hematocrit 42.1 % Mean Corpuscular Volume 86.6 fL Mean Corpuscular Hemoglobin 28.8 pg Mean Corpuscular Hemoglobin Concent 33.3 g/dl Platelet Count 235 K/uL Mean Platelet Volume 9.9 fL Neutrophils (%) (Auto) 77.8 % Lymphocytes (%) (Auto) 15.0 % Monocytes (%) (Auto) 6.2 % Eosinophils (%) (Auto) 0.6 % Basophils (%) (Auto) 0.2 % Neutrophils # (Auto) 6.24 K/uL Lymphocytes # (Auto) 1.21 K/uL Monocytes # (Auto) 0.50 K/uL Eosinophils # (Auto) 0.05 K/uL Basophils # (Auto) 0.02 K/uL RDW Standard Deviation 43.5 fL RDW Coefficient of Variation 13.7 % Immature Granulocyte % (Auto) 0.2 % Immature Granulocyte # (Auto) 0.02 K/uL Sodium Level 143 mmol/L Potassium Level 3.2 mmol/L Chloride Level 107 mmol/L Carbon Dioxide Level 27 mmol/L Anion Gap 9.0 mmol/L Blood Urea Nitrogen < 1 mg/dl Creatinine 0.44 mg/dl Est Creatinine Clear Calc Drug Dose 112.8 ml/min Estimated GFR () 121.1 Estimated GFR (Non- 104.5 BUN/Creatinine Ratio Random Glucose 96 mg/dl Calcium Level 8.3 mg/dl Assessment and Plan 66 y/o female with a history of recurrent diverticulitis who presents to the ED on 05/02 with worsening abdominal pain. This is the patient's 3rd episode of diverticulitis in the last 4 months. The patient again began to develop symptoms a few days ago and was prescribed Cipro and Flagyl by her PCP, but her symptoms continued to worsen, prompting her to come to the ED for further evaluation. Pt afebrile on arrival but hypotensive and tachycardic. This did improve with IVF. CT abdomen and pelvis shows progressive acute diverticulitis with extensive infiltrative change of the fat and fascial planes throughout the soft tissue pelvis. There is also considerable reactive small bowel wall edema with a coloenteric fistula again noted. Small bowel wall edematous change creates at least partial bowel obstructive change. No abscess or pneumatosis. WBC elevated at 19.2. Acute diverticulitis, h/o recurrent diverticulitis, h/o coloenteric fistula-- improving -Admit to tele. -GI consulted, appreciate recs: recommend general surgery consult. Continue IV Zosyn and liquid diet. Supportive care per primary team. -General surgery consulted, appreciate recs: Continue Zosyn. Advance diet to soft. Will need to set appt for semi-elective colectomy in about 6 weeks. -Continue Zosyn IV, leukocytosis resolved -IVF with NSS at 100 cc/hr Right eye conjunctivitis--improving -Continue Cipro eye drops Tobacco dependence -Continue nicotine patch 14 mg -Smoking cessation GI prophylaxis -Maalox Max 15 mL PO q4h prn dyspepsia -Milk of magnesia 30 mL PO q6h prn constipation -Lactobacillus TIDM DVT prophylaxis -Enoxaparin 40 mg SC q24h -SCDs Code Status -Level I, FULL RESUSCITATION STATUS
[2017-05-05 14:58] VITALS: BP 132/86; PULSE 68; TEMP 36.7; O2SAT 96
[2017-05-05 16:00] VITALS: O2SAT 96
[2017-05-05] MEDS: ENOXAPARIN 40 MG/0.4 ML SYR SC SCH (19:43)
[2017-05-05 23:12] VITALS: BP 137/85; PULSE 73; TEMP 36.9; O2SAT 94
[2017-05-06] MEDS: SODIUM CHLORIDE 0.9% 1000ML 1,000 ML IV SCH ×2 (00:29→08:38)
[2017-05-06] MEDS: PIPERACILL/TAZOBAC IV 3.375 GM in DEXTROSE 5% 100ML 100 ML IV SCH (05:10)
[2017-05-06] MEDS ORDERED: NICOTINE 14 MG/24 HR TDSY TD SCH (06:30)
[2017-05-06 07:09] LABS: BASO % 0.2 %; BASO ABS # 0.02 K/uL (0-0.2); COMPLETE YES; EOS % 0.6 %; IG% 0.2 %; LYMPH % 17.9 %; LYMPH ABS # 1.45 K/uL (1.2-3.4); MEAN CELL VOLUME 85.8 fL (80-100); MEAN CORPUSCULAR HEMOGLOBIN 28.8 pg (25-34); MEAN CORPUSCULAR HGB CONC 33.6 g/dl (32-36); MEAN PLATELET VOLUME 9.8 fL (7.4-10.4); MONO % 6.8 %; NEUT % 74.3 %; PLATELET COUNT 235 K/uL (130-400); RED BLOOD COUNT 5.13 M/uL (4.2-5.4); WHITE BLOOD COUNT 8.11 K/uL (4.8-10.8)
[2017-05-06] MEDS: LACTOBACILLUS ACIDOPHILUS (FLORANEX) TAB PO SCH ×2 (07:29→11:45)
[2017-05-06] MEDS: CIPROFLOXACIN HCL 3.5 GM TUBE OP SCH (07:30)
[2017-05-06 07:40] VITALS: BP 166/94; PULSE 75; TEMP 36.8; O2SAT 95
[2017-05-06 07:41] LABS: BUN/CREATININE RATIO 3.2 (10-20); CALCIUM 8.3 mg/dl (8.5-10.1); CREATININE 0.42 mg/dl (0.60-1.20); POTASSIUM 3.3 mmol/L (3.5-5.1)
--- NOTE | 2017-05-06 08:38 | Surgery Progress Note ---
Surgery Progress Note Date of Service May 06, 2017. Subjective + feeling well, + bowel movement (forming), + diet (low residue), No nausea Objective Vital Signs: Date Time Temp Pulse Resp B/P (MAP) Pulse Ox O2 Delivery O2 Flow Rate FiO2 05/06/17 08:00 Room Air 05/06/17 07:40 36.8 75 18 166/94 (118) 95 Room Air 05/06/17 00:00 Room Air 05/05/17 23:12 36.9 73 16 137/85 (102) 94 Room Air 05/05/17 16:00 96 Room Air 05/05/17 14:58 36.7 68 16 132/86 (101) 96 Abdomen: non tender, non distended, soft Laboratory Results: Results Past 24 Hours Test 05/06/17 06:53 Range/Units White Blood Count 8.11 4.8-10.8 K/uL Red Blood Count 5.13 4.2-5.4 M/uL Hemoglobin 14.8 12.0-16.0 g/dL Hematocrit 44.0 37-47 % Mean Corpuscular Volume 85.8 80-100 fL Mean Corpuscular Hemoglobin 28.8 25-34 pg Mean Corpuscular Hemoglobin Concent 33.6 32-36 g/dl Platelet Count 235 130-400 K/uL Mean Platelet Volume 9.8 7.4-10.4 fL Neutrophils (%) (Auto) 74.3 % Lymphocytes (%) (Auto) 17.9 % Monocytes (%) (Auto) 6.8 % Eosinophils (%) (Auto) 0.6 % Basophils (%) (Auto) 0.2 % Neutrophils # (Auto) 6.02 1.4-6.5 K/uL Lymphocytes # (Auto) 1.45 1.2-3.4 K/uL Monocytes # (Auto) 0.55 0.11-0.59 K/uL Eosinophils # (Auto) 0.05 0-0.5 K/uL Basophils # (Auto) 0.02 0-0.2 K/uL RDW Standard Deviation 43.1 36.4-46.3 fL RDW Coefficient of Variation 13.7 11.5-14.5 % Immature Granulocyte % (Auto) 0.2 % Immature Granulocyte # (Auto) 0.02 0.00-0.02 K/uL Sodium Level 143 136-145 mmol/L Potassium Level 3.3 3.5-5.1 mmol/L Chloride Level 108 98-107 mmol/L Carbon Dioxide Level 30 21-32 mmol/L Anion Gap 5.0 3-11 mmol/L Blood Urea Nitrogen 1 7-18 mg/dl Creatinine 0.42 0.60-1.20 mg/dl Est Creatinine Clear Calc Drug Dose 118.1 ml/min Estimated GFR () 122.9 Estimated GFR (Non- 106.1 BUN/Creatinine Ratio 3.2 10-20 Random Glucose 97 70-99 mg/dl Calcium Level 8.3 8.5-10.1 mg/dl Assessment & Plan diverticulitis with enterocolic fistula much improved, ok for d/c would consider Augmentin + Flagyl x 2 weeks will see her in 2-3 weeks to further discuss colectomy seen with Dr. Brush
[2017-05-06] MEDS: ACETAMINOPHEN 325 MG TAB PO PRN (11:48)
[2017-05-06] MEDS ORDERED: NICO14DI5 TD (12:38)
[2017-05-06] MEDS ORDERED: LCTX PO (12:38)
[2017-05-06] MEDS ORDERED: MTR500 PO (12:38)
[2017-05-06] MEDS ORDERED: CIPR-255 PO (12:38)
--- NOTE | 2017-05-06 12:45 | Discharge Instructions ---
Discharge Instructions Date of Service May 06, 2017. Admission Reason for Admission: Acute Diverticulitis Discharge Discharge Diagnosis / Problem: acute recurrent diverticulitis, septic shock, abdominal pain Discharge Goals Goal(s): Decrease discomfort Activity Recommendations Activity Limitations: resume your previous activity Lifting Limitations: none Exercise/Sports Limitations: none May Resume Sexual Activity: when tolerated Driving or Machine Use: no limitations . Instructions / Follow-Up Instructions / Follow-Up follow up with surgeon as scheduled Current Hospital Diet Patient's current hospital diet: Regular Diet Discharge Diet Recommended Diet: Low Sodium Diet (2gm Na) Pending Studies Studies pending at discharge: no Medical Emergencies . Who to Call and When: Medical Emergencies: If at any time you feel your situation is an emergency, please call 911 immediately. . Non-Emergent Contact Non-Emergency issues call your: Primary Care Provider, Still Photographer Call Non-Emergent contact if: you have a fever, temperature is above 100.5, your pain is not controlled, your pain is worsening . . "Provider Documentation" section prepared by Anuj Negrete. . VTE Core Measure Inpt VTE Proph given/why not?: Enoxaparin (Lovenox)SQ
[2017-05-06 13:00] VITALS: BP 166/94; PULSE 75; TEMP 36.8; O2SAT 95
--- NOTE | 2017-05-06 18:26 | Discharge Summary ---
Discharge Summary Date of Service May 06, 2017. Discharge Summary Admission Date: May 02, 2017 at 10:10 Discharge Date: May 06, 2017 Discharge Disposition: Home Principal Diagnosis: diverticulitis Problems/Secondary Diagnoses: tobacco abuse Medication Reconciliation New Medications: Ciprofloxacin Hcl (Cipro) 500 Mg Tab 500 MG PO BID for 14 Days, #28 TAB Lactobacillus Acidophilus (Floranex) 1 Tab Tab 4 TAB PO TIDM for 20 Days, #80 TAB Nicotine (Nicoderm Cq 14MG Patch) 14 Mg/24 Hr Dis 1 PATCH TD DAILY@0600 for 30 Days, #30 PATCH Changed Medications: Metronidazole (Metronidazole) 500 Mg Tab 500 MG PO TID for 14 Days, #42 TAB (Changed from: QID) Discontinued Medications: Ciprofloxacin (Ciprofloxacin HCl) 750 Mg Tab 750 MG PO BID Referrals At Discharge Follow up Referrals: Surgery Referral - Within 2 Weeks with Clinton Brush D.O. Discharge Exam Review of Systems: Constitutional: No fever, No chills, No sweats, No weight loss, No weakness , No fatigue, No problem reported Eyes: No worsening of vision, No eye pain, No redness, No discharge, No diplopia, No problem reported ENT: No hearing loss, No unusual epistaxis, No nasal symptoms, No sore throat, No tinnitus, No dental problems, No trouble swallowing, No problem reported Respiratory: No cough, No sputum, No wheezing, No shortness of breath, No dyspnea on exertion, No dyspnea at rest, No hemoptysis, No problem reported Cardiovascular: No chest pain, No orthopnea, No PND, No edema, No claudication, No palpitations, No problem reported Abdomen: No pain, No nausea, No vomiting, No diarrhea, No constipation, No GI bleeding, No problem reported Musculoskeletal: No joint pain, No muscle pain, No swelling, No calf pain, No problem reported Neurologic: No memory loss, No paralysis, No weakness, No numbness/tingling , No vertigo, No balance problems, No problem reported Psychiatric: No depression symptoms, No anhedonism, No anxiety, No insomnia , No substance abuse, No problem reported Endocrine: No fatigue, No excessive thirst, No excessive urination, No problem reported Hematologic / Lymphatic: No abnormal bleeding/bruising, No clotting problems , No swollen lymph nodes, No night sweats, No problem reported Integumentary: No rash, No itch, No new/changing skin lesions, No color change, No bleeding, No problem reported Physical Exam: General Appearance: WD/WN, no apparent distress Eyes: normal inspection, EOMI ENT: normal ENT inspection, hearing grossly normal Neck: supple Respiratory/Chest: chest non-tender, lungs clear, normal breath sounds, no respiratory distress, no accessory muscle use Cardiovascular: regular rate, rhythm, no edema, no gallop, no JVD, no murmur , normal peripheral pulses Abdomen / GI: normal bowel sounds, non tender, soft, no organomegaly, no pulsatile mass Extremities: normal inspection, no calf tenderness Neurologic/Psychiatric: retail business development manager II-XII nml as tested, no motor/sensory deficits , alert, normal mood/affect, normal reflexes Skin: normal color, warm/dry, no rash Hospital Course 66 years old female presented with recurrent diverticulitis, failed out patient oral cipro/flagyl kept NPO started on zosyn 4.5G / 6hrs, IVF hydration, Probiotics Dr. Consult Case found to have right eye conjunctivitis started on Cipro eye drops slowly improved , switched to cipro/flagyl, surgery consulted for OP partial colectomy Colonoscopy 03/05/17: Impression: - Medium-sized lipoma in the ascending colon. - Diverticulosis in the sigmoid colon. - One 4 mm polyp in the rectum, removed with a hot snare. Complete resection. Polyp tissue not retrieved. - Internal hemorrhoids. cleared by GI and surgery for discharge on cipro/flagyl X 14 days, with follow up with surgery for colectomy as mentioned above Total Time Spent: Greater than 30 minutes This includes examination of the patient, discharge planning, medication reconciliation, and communication with other providers. Discharge Instructions Please refer to the electronic Patient Visit Report (Discharge Instructions) for additional information.
--- NOTE | 2017-05-29 14:59 | EDITING REQUIRED CODING QUERY ---
SEPSIS Dear Dr. Granados, To promote full compliance with coding requirements relating to patient care, physician participation is requested in all cases of rock cutter uncertainty. Please assist us with the question(s) below: In responding to this query, please exercise your independent professional judgement. The fact that a question is asked does not imply that any particular answer is desired or expected. We appreciate your clarification on this issue. The medical record documents Sepsis on the H and P but not on the discharge summary. Does the patient have? ( )Bacteremia (Nonspecific laboratory finding of bacteria in the blood) Specify Organism ( ) Present on Admission ( ) Not present on admission () Unable to clinically determine ( ) Septicemia (Systemic disease associated with the presence of pathogenic microorganisms in the blood): Specify Organism ( ) Present on Admission ( ) Not present on admission () Unable to clinically determine ( ) Sepsis Specify Organism Specify Associated Condition/Diagnosis ( ) Present on Admission ( ) Not present on admission () Unable to clinically determine ( ) Severe Sepsis (Sepsis associated with acute organ dysfunction) Specify Organism Specify Associated Condition/Diagnosis ( ) Present on Admission ( ) Not present on admission () Unable to clinically determine ( ) Septic Shock (Severe sepsis with acute circulatory failure, unexplained by other causes) () Present on Admission () Not present on admission () Unable to clinically determine ( ) Other, patient has: DID NOT DISCHARGE THIS PATIENT ( ) Sepsis was ruled out Thank you for your time. Amrita Osborn, DIRECTOR FINANCIAL SYSTEMS
--- NOTE | 2017-05-29 15:30 | EDITING REQUIRED CODING QUERY ---
SEPSIS Dear Dr. Francis Rizzo, To promote full compliance with coding requirements relating to patient care, physician participation is requested in all cases of centerless grinder operator uncertainty. Please assist us with the question(s) below: In responding to this query, please exercise your independent professional judgement. The fact that a question is asked does not imply that any particular answer is desired or expected. We appreciate your clarification on this issue. Sepsis is documented on the H and P but not on the discharge summary. Did the patient have? ( )Bacteremia (Nonspecific laboratory finding of bacteria in the blood) Specify Organism ( ) Present on Admission () Not present on admission () Unable to clinically determine ( ) Septicemia (Systemic disease associated with the presence of pathogenic microorganisms in the blood): Specify Organism ( ) Present on Admission () Not present on admission () Unable to clinically determine (x ) Sepsis Specify Organism Specify Associated Condition/Diagnosis ( ) Present on Admission () Not present on admission () Unable to clinically determine () Severe Sepsis (Sepsis associated with acute organ dysfunction) Specify Organism Specify Associated Condition/Diagnosis () Present on Admission () Not present on admission () Unable to clinically determine ( ) Septic Shock (Severe sepsis with acute circulatory failure, unexplained by other causes) () Present on Admission () Not present on admission () Unable to clinically determine ( ) Other, patient has: ( ) Sepsis was ruled out Thank you for your time. Amrita Osborn, PULLMAN CAR REPAIRER
--- NOTE | 2017-05-29 15:33 | EDITING REQUIRED CODING QUERY ---
SEPSIS . Dear Dr. Francis Rizzo, To promote full compliance with coding requirements relating to patient care, physician participation is requested in all cases of equities trader uncertainty. Please assist us with the question(s) below: In responding to this query, please exercise your independent professional judgement. The fact that a question is asked does not imply that any particular answer is desired or expected. We appreciate your clarification on this issue. Sepsis is documented on the H and P but not on the discharge summary. Did the patient have? ( )Bacteremia (Nonspecific laboratory finding of bacteria in the blood) Specify Organism () Present on Admission () Not present on admission () Unable to clinically determine ( ) Septicemia (Systemic disease associated with the presence of pathogenic microorganisms in the blood): Specify Organism () Present on Admission () Not present on admission () Unable to clinically determine ( x ) Sepsis Specify Organism Specify Associated Condition/Diagnosis () Present on Admission () Not present on admission () Unable to clinically determine ( ) Severe Sepsis (Sepsis associated with acute organ dysfunction) Specify Organism Specify Associated Condition/Diagnosis () Present on Admission () Not present on admission () Unable to clinically determine ( ) Septic Shock (Severe sepsis with acute circulatory failure, unexplained by other causes) () Present on Admission () Not present on admission () Unable to clinically determine ( ) Other, patient has: ( ) Sepsis was ruled out Thank you for your time. Amrita Osobrn, NAVIGATION TEACHER
[2017-06-28] MEDS ORDERED: CETI10TA84 PO (08:31)
[2017-06-28] MEDS ORDERED: OMEG10007 PO (08:31)
[2017-06-28] MEDS ORDERED: ACET-1222 PO (08:31)
[2017-06-28] MEDS ORDERED: CALC-388 PO (08:31)
[2017-06-28] MEDS ORDERED: FLUT50SP45 (08:31)
[2017-06-28] MEDS ORDERED: CITA20TA4 PO (08:31)
== END 2017-05-06 13:27 | disposition home or self-care (01) | DRG 871 ==
LOC: C.EDB 07:49 → C.MED 10:10 → ENRESERV 10:21 → CANBEDREQ 19:12
PROVIDERS: ADMIT Internal Medicine; ATTEND Hospitalist
DX: A41.9 Sepsis, unspecified organism (principal); R65.21 Severe sepsis with septic shock; K57.92 Diverticulitis of intestine, part unspecified, without perforation or abscess without bleeding; K63.2 Fistula of intestine; F17.210 Nicotine dependence, cigarettes, uncomplicated; I95.9 Hypotension, unspecified; R09.02 Hypoxemia; H10.31 Unspecified acute conjunctivitis, right eye

== ENCOUNTER → 2017-07-01 | Outpatient (CLI) | payer OTHER ==
[~2017-07-01] MED LIST changes: +ACET-1222 PO; +CALC-388 PO; -CALC500C70 PO; +CETI10TA84 PO; -CIPR-255 PO; +CITA20TA4 PO; -FLUT0.15 NAE; +FLUT50SP45; +NICO14DI5 TD; +OMEG10007 PO; +OXYC-57 PO; -POLY335019 PO; -TRAM-10 PO
== END | disposition home or self-care (01) ==
LOC: C.LABSPEC 10:20
PROVIDERS: ATTEND Obstetrics & Gynecology
DX: N93.9 Abnormal uterine and vaginal bleeding, unspecified (principal); N95.0 Postmenopausal bleeding

== ENCOUNTER 2017-07-04 08:20 | Inpatient (IN) | payer OTHER ==
[2017-06-28 08:02] VITALS: BMI 25.0
--- NOTE | 2017-06-28 08:45 | PAT Medication Instructions ---
Service Date Jun 28, 2017. Current Home Medication List Acetaminophen (Acetaminophen Extra Stren), 2 TAB PO DAILY PRN for Headache Calcium Carbonate-Vitamin D (Calcium + D3 600-200 mg-Unit), 1 TAB PO QAM Cetirizine (Zyrtec), 10 MG PO QAM Citalopram Hydrobromide (Citalopram Hydrobromide), 1 TAB PO qa Fish Oil ([place]-3), 1 CAP PO QAM Fluticasone Propionate (Nasal) (Allergy Nasal [place] 24 Ho), 2 SPRAYS NA QAM Nicotine (Nicoderm Cq 14MG Patch), 1 PATCH TD DAILY@0600 Medication Instructions For Your Scheduled Surgery - Hold the following medications from now until surgery: Fish Oil ([place]-3), 1 CAP PO QAM - Hold the following medications the morning of surgery: Cetirizine (Zyrtec), 10 MG PO QAM Calcium Carbonate-Vitamin D (Calcium + D3 600-200 mg-Unit), 1 TAB PO QAM - Take the following medications the morning of surgery with a sip of water: Nicotine (Nicoderm Cq 14MG Patch), 1 PATCH TD DAILY@0600 Citalopram Hydrobromide (Citalopram Hydrobromide), 1 TAB PO QAM Acetaminophen (Acetaminophen Extra Stren), 2 TAB PO DAILY PRN for Headache (if needed for up to four hours prior to surgery) Fluticasone Propionate (Nasal) (Allergy Nasal [place] 24 Ho), 2 SPRAYS NA QAM OTHERWISE NOTHING TO EAT OR DRINK AFTER MIDNIGHT If you have any questions please call us at [phone] or [phone] or [phone]
--- NOTE | 2017-06-28 09:34 | DIAGNOSTIC IMAGING REPORT ---
CHEST PREADMISSION(PA/LAT) CLINICAL HISTORY: Preoperative chest COMPARISON STUDY: No previous studies for comparison. FINDINGS: The patient is hyperinflated. Underlying emphysema is suspected. There are increased markings on the lateral view anteriorly. This is likely secondary to right middle lobe atelectatic change. There are no significant pleural effusions. IMPRESSION: Increased density of the lateral view anteriorly. This is difficult to visualize on the PA film but likely is secondary to right middle lobe volume loss. This appears to have been present on a prior industrial hygenist topogram from a CT scan the abdomen pelvis dated 05/02/2017. Electronically signed by: Mike Farias M.D. 06/28/2017 9:32 AM Dictated Date/Time: 06/28/2017 9:30 AM
[2017-06-28 10:13] LABS: BASO % 0.1 %; BASO ABS # 0.01 K/uL (0-0.2); COMPLETE YES; EOS % 0.4 %; HEMATOCRIT 49.7 % (37-47); IG% 0.1 %; LYMPH % 19.4 %; LYMPH ABS # 1.96 K/uL (1.2-3.4); MEAN CELL VOLUME 86.1 fL (80-100); MEAN CORPUSCULAR HEMOGLOBIN 28.4 pg (25-34); MEAN PLATELET VOLUME 9.9 fL (7.4-10.4); MONO % 5.6 %; NEUT % 74.4 %; PLATELET COUNT 258 K/uL (130-400); RED BLOOD COUNT 5.77 M/uL (4.2-5.4); WHITE BLOOD COUNT 10.09 K/uL (4.8-10.8)
[2017-06-28 10:35] LABS: BUN/CREATININE RATIO 18.1 (10-20); CALCIUM 9.5 mg/dl (8.5-10.1); CREATININE 0.47 mg/dl (0.60-1.20); POTASSIUM 4.5 mmol/L (3.5-5.1)
[2017-07-04] VITALS (9 sets, daily range): BP systolic 78–138; BP diastolic 49–85; PULSE 72–88; TEMP 36.3–37.1; O2SAT 94–97; Ht 157.5 cm; Wt 62.7 kg
[~2017-07-04] VITALS: Ht 157.5 cm; Wt 62.7 kg
[~2017-07-04 08:20] MED LIST changes: +CEFAZOLIN 2000 MG/60 ML D5W 60 ML IV SCH; +HEPARIN SOD 5000 UNIT/0.5 ML CARP SQ SCH; +LACTATED RINGER'S 1000ML 1,000 ML IV SCH; +LACTATED RINGER'S 1000ML IV SCH; -OXYC-57 PO
[2017-07-04] MEDS ORDERED: BUPIVACAINE/EPINEPHRINE 0.5% MPF 1:200,000 30 ML VIAL ONE (09:46)
[2017-07-04] MEDS ORDERED: FENTANYL CITRATE INJ 50 MCG/1 ML 2 ML VIAL ONE ×3 (09:47→11:32)
[2017-07-04] MEDS ORDERED: MIDAZOLAM HCL 1 MG/ML 2ML VIAL ONE (09:47)
--- NOTE | 2017-07-04 09:49 | History & Physical Bridge Note ---
H&P Re-Evaluation Bridge Note: I have examined the patient, reviewed the History & Physical and in the interval since the performance of the History & Physical I have noted the following changes of clinical significance: pt took bowel prep. rediscussed plans/risks. questions answered with her family at bedside. ok to proceed.
[2017-07-04] MEDS ORDERED: DEXAMETHASONE SOD INJ 4 MG/ML VIAL ONE (09:51)
[2017-07-04] MEDS ORDERED: ONDANSETRON INJ 2 MG/ML 2 ML VIAL ONE ×2 (09:51→12:24)
[2017-07-04] MEDS ORDERED: PROPOFOL IV EMULSION 10 MG/ML 20 ML VIAL IV ONE (09:51)
[2017-07-04] MEDS ORDERED: CISATRACURIUM BESYLATE IV SOLN 2 MG/ML 10 ML VIAL ONE (09:51)
[2017-07-04] MEDS ORDERED: NEOSTIGMINE METHYLSULFATE 5 MG/5 ML SYR ONE ×2 (09:51→12:25)
[2017-07-04] MEDS ORDERED: LIDOCAINE HCL 2% 2 ML VIAL (20MG/ML) ONE (09:51)
[2017-07-04] MEDS ORDERED: GLYCOPYRROLATE INJ 0.2 MG/ML VIAL ONE ×2 (09:51→12:25)
[2017-07-04] MEDS ORDERED: LABETALOL HCL IV 5 MG/ML 20ML IV ONE ×2 (12:25→13:04)
[2017-07-04] MEDS: SODIUM CHLORIDE 0.9% 1000ML 1,000 ML IV SCH (12:51)
[2017-07-04] MEDS ORDERED: PROMETHAZINE HCL INJ 12.5 MG in SODIUM CHLORIDE 0.9% 50ML 50 ML IV PRN (13:00)
[2017-07-04] MEDS ORDERED: EpHEDrine SULFATE INJ 50 MG/ML AMP IV PRN (13:00)
[2017-07-04] MEDS ORDERED: ATROPINE SULFATE 0.1 MG/ML 5ML SYR IV PRN (13:00)
[2017-07-04] MEDS ORDERED: ACETAMINOPHEN IV 1,000 MG in EMPTY BAG 0 ML IV SCH (13:00)
[2017-07-04] MEDS ORDERED: ONDANSETRON INJ 2 MG/ML 2 ML VIAL IV PRN (13:00)
[2017-07-04] MEDS ORDERED: LABETALOL HCL IV 5 MG/ML 20ML IV PRN (13:00)
[2017-07-04] MEDS ORDERED: FLUMAZENIL 0.1 MG/1 ML 10 ML VIAL IV PRN (13:00)
[2017-07-04] MEDS ORDERED: NALOXONE HCL 0.4 MG/1 ML VIAL/CARP IV PRN ×2 (13:00)
--- NOTE | 2017-07-04 13:08 | [facility] Operative Report ---
Operative Report Operative Date Jul 04, 2017. Pre-Operative Diagnosis acute diverticulitis, enterovaginal and enterocolic fistulas Post-Operative Diagnosis acute diverticulitis, enterovaginal and enterocolic fistulas Procedure(s) Performed Open Sigmoid Colon Resection, Partial Small Bowel Resection, Take down of enterovaginal fistula with Primary Repair Surgeon Dr. Clinton Brush Over The Road Driver Surgeon(s) Colton Schuster PA-C Estimated Blood Loss 150ml Findings thickened sigmoid colon with diverticulosis;enterocolonic fistula;enterovaginal fistula Specimens Permanent: A. Sigmoid Colon and portion of small bowel Anesthesia GET Complication(s) None Disposition Recovery Room / PACU Description of Procedure After informed consent was obtained the patient was taken to the operating room and placed in a supine position. After successful intubation a Meirda catheter was placed and the patient was placed in the low lithotomy position with yellowfin stirrups. The abdomen and perineum were all sterilely prepped and draped in usual fashion. I began by making an incision from just below the umbilicus down to the pubic bone. This was carried down through the soft tissue using electrocautery. Anterior rectus fascia was opened using electrocautery. Peritoneum was elevated with hemostats and then incised with a Metzenbaum scissor. We then used cautery to extend the incision to both poles. Once in the abdomen we used a Bookwalter retractor throughout the case to help with our exposure. Anatomy appeared relatively normal. The sigmoid colon was markedly thickened consistent with her history of diverticulitis. There were also 2 obvious areas of obvious small bowel fistulas one to the sigmoid colon itself and one to the posterior vaginal cuff. We began by transecting the small bowel just as it entered the area of fistula of the large bowel by transecting it with a TE 60 mm Brown cartridge. We're then able to follow the small bowel into the pelvis where it connected to the vaginal cuff and then as it exited the pelvis we also transected it this area again with a Brown cartridge TE stapler. Once we did this we used the LigaSure device to take down the mesentery of the small bowel. Next we mobilized the large bowel along the white line of Toldt using blunt dissection as well as small amounts electrocautery. We mobilized this basically the whole way up to the spleen and distally down to the peritoneal reflection. We were able to identify the left ureter to keep it out of harm's way. Once we had this fully mobilized we transected the rectosigmoid area distal to the area of diverticuli and inflammation by using a TE purple cartridge stapler. Using the same cartridge we also stapled off the proximal colon again proximal to the area of visible diverticuli and inflammation. We then took down the mesentery of the colon again using LigaSure device. This left us one large piece with only the fistula to the vaginal cuff remaining to be taken down. We used primarily finger fractionation and sharp scissor lysis to take this off the vaginal cuff and were then able to pass off one large specimen which consisted of the colon and small bowel. We thoroughly irrigated the pelvis. I oversewed the vaginal cuff fistula area with 2-0 Vicryl in interrupted fashion. Next we performed a [id number] small bowel anastomosis with a TE Brown cartridge stapler. The same stapler was also used to close the common enterotomy. We used 3-0 silk to oversew the anastomosis as well as placed a crotch stitch. Next we opened up the staple line of the proximal colon and used sizers to estimate the EEA size to be 25 mm. We used 2-0 silk to create a pursestring and then placed the 25 mm anvil into the end of the colon and secured with the pursestring. We then brought in the handle of the EEA into the rectal stump. We deployed the spike and connected it to the anvil and secured them together. We fired it creating an end to end colonic anastomosis. Both "donuts" were intact. We then submerged the anastomosis under water and used a rigid sigmoidoscope to inflate the anastomosis. There was no evidence of any leaks. We thoroughly irrigated the entire abdomen. There was no evidence of any bleeding or other bowel injury. We placed a 10 flat 10 flat Jesus-Ghotra drain in the pelvis and brought out through a separate stab incision secured it to the skin using 2-0 silk. A final irrigation was performed. We closed the fascia using #1 PDS starting at either pole running them and securing them in the midline. Soft tissue was irrigated and skin was closed using skin taya. A silver dressing was applied. The patient was awaken extubated and transferred recovery in stable condition I attest to the content of the Intraoperative Record and any orders documented therein. Any exceptions are noted below.
[2017-07-04] MEDS: HYDROmorphone INJ 1 MG/ML SYR IV PRN ×4 (13:20→13:40)
--- NOTE | 2017-07-04 13:59 | Anesthesiology Progress Note ---
Anesthesia Post Op Note Date & Time Jul 04, 2017 at 13:59 Vital Signs Pain Intensity: 5 Vital Signs Past 12 Hours Date Time Temp Pulse Resp B/P (MAP) Pulse Ox O2 Delivery O2 Flow Rate FiO2 07/04/17 13:56 36.2 71 16 141/88 97 Nasal Cannula 4 07/04/17 12:51 36.2 96 18 167/112 97 Mask 10 07/04/17 08:46 36.7 88 18 102/82 97 Room Air Notes Mental Status: alert / awake / arousable, participated in evaluation Pt Amnestic to Procedure: Yes Nausea / Vomiting: adequately controlled Pain: adequately controlled Airway Patency, RR, SpO2: stable & adequate BP & HR: stable & adequate Hydration State: stable & adequate Anesthetic Complications: no major complications apparent
[2017-07-04] MEDS: HYDROmorphone HCL 0.5MG/ML 50 ML CASSETTE IV PRN ×4 (14:25→22:55)
[2017-07-04] MEDS: LACTATED RINGER'S 1000ML 1,000 ML IV SCH ×2 (14:44→20:30)
[2017-07-04] MEDS: ACETAMINOPHEN IV 1,000 MG in EMPTY BAG 0 ML IV SCH ×2 (15:36→22:19)
[2017-07-04] MEDS: CEFOXITIN 2000MG/60 ML D5W IV SCH ×2 (16:00→22:00)
[2017-07-04] MEDS: CEFOXITIN IV 2,000 MG in DEXTROSE 5% 50ML 50 ML IV SCH ×2 (17:17→22:31)
[2017-07-04] MEDS: ONDANSETRON INJ 2 MG/ML 2 ML VIAL IV PRN (18:08)
[2017-07-05] VITALS (7 sets, daily range): BP systolic 79–103; BP diastolic 53–62; PULSE 69–101; TEMP 36.6–37; O2SAT 94–99
[2017-07-05] MEDS: LACTATED RINGER'S 1000ML 1,000 ML IV SCH ×3 (03:47→21:15)
[2017-07-05] MEDS: CEFOXITIN IV 2,000 MG in DEXTROSE 5% 50ML 50 ML IV SCH (03:48)
[2017-07-05] MEDS: ACETAMINOPHEN IV 1,000 MG in EMPTY BAG 0 ML IV SCH ×3 (05:28→21:38)
[2017-07-05] MEDS: NICOTINE 14 MG/24 HR TDSY TD SCH (05:28)
[2017-07-05 06:45] LABS: BASO % 0.1 %; BASO ABS # 0.01 K/uL (0-0.2); COMPLETE YES; HEMATOCRIT 38.2 % (37-47); IG% 0.3 %; LYMPH % 8.9 %; LYMPH ABS # 1.61 K/uL (1.2-3.4); MEAN CELL VOLUME 85.7 fL (80-100); MEAN CORPUSCULAR HEMOGLOBIN 28.7 pg (25-34); MEAN CORPUSCULAR HGB CONC 33.5 g/dl (32-36); MEAN PLATELET VOLUME 9.7 fL (7.4-10.4); MONO % 7.1 %; NEUT % 83.6 %; PLATELET COUNT 247 K/uL (130-400); RED BLOOD COUNT 4.46 M/uL (4.2-5.4)
[2017-07-05 06:54] LABS: PARTIAL THROMBOPLASTIN RATIO 1.1; PROTHROMBIN TIME (PATIENT) 10.7 SECONDS (9.0-12.0)
[2017-07-05] MEDS: HYDROmorphone HCL 0.5MG/ML 50 ML CASSETTE IV PRN ×2 (06:57→23:15)
[2017-07-05 07:20] LABS: BUN/CREATININE RATIO 13.6 (10-20); CREATININE 0.64 mg/dl (0.60-1.20); POTASSIUM 4.2 mmol/L (3.5-5.1)
[2017-07-05] MEDS: ONDANSETRON INJ 2 MG/ML 2 ML VIAL IV PRN (08:08)
--- NOTE | 2017-07-05 08:31 | Anesthesiology Progress Note ---
Anesthesia Post Op Note Date & Time Jul 05, 2017 at 08:30 Vital Signs Pain Intensity: 8.0 Vital Signs Past 12 Hours Date Time Temp Pulse Resp B/P (MAP) Pulse Ox O2 Delivery O2 Flow Rate FiO2 07/05/17 07:02 95 19 102/57 (72) 95 Room Air 07/05/17 03:23 36.9 94 16 79/53 (62) 94 Nasal Cannula 2.0 101 95/62 (73) 07/04/17 23:20 Nasal Cannula 3.0 07/04/17 23:05 36.8 84 16 86/56 (66) 96 Nasal Cannula 2.0 83 78/49 (59) 07/04/17 22:25 37.1 85 18 94/60 (71) 94 Nasal Cannula 3.0 Notes Mental Status: alert / awake / arousable, participated in evaluation Pt Amnestic to Procedure: Yes Nausea / Vomiting: adequately controlled Pain: adequately controlled Airway Patency, RR, SpO2: stable & adequate BP & HR: stable & adequate Hydration State: stable & adequate Anesthetic Complications: no major complications apparent
--- NOTE | 2017-07-05 08:33 | Surgery Progress Note ---
Surgery Progress Note Date of Service Jul 05, 2017. Subjective Post OP Day: 1 doing ok. pain control adequate. no n/v. Objective Vital Signs: Date Time Temp Pulse Resp B/P (MAP) Pulse Ox O2 Delivery O2 Flow Rate FiO2 07/05/17 07:02 95 19 102/57 (72) 95 Room Air 07/05/17 03:23 36.9 94 16 79/53 (62) 94 Nasal Cannula 2.0 101 95/62 (73) 07/04/17 23:20 Nasal Cannula 3.0 07/04/17 23:05 36.8 84 16 86/56 (66) 96 Nasal Cannula 2.0 83 78/49 (59) 07/04/17 22:25 37.1 85 18 94/60 (71) 94 Nasal Cannula 3.0 07/04/17 18:06 Nasal Cannula 3.0 07/04/17 17:42 36.3 84 17 118/81 (93) 96 Nasal Cannula 3.0 07/04/17 16:30 36.4 79 17 121/79 (93) 95 Nasal Cannula 4.0 07/04/17 16:00 95 Nasal Cannula 3.0 07/04/17 15:35 36.5 72 16 122/80 (94) 95 Nasal Cannula 3.0 07/04/17 15:02 36.8 76 17 117/81 (93) 96 Nasal Cannula 4.0 07/04/17 14:35 36.8 77 18 138/85 (102) 95 Nasal Cannula 4.0 07/04/17 14:35 Nasal Cannula 4.0 07/04/17 14:11 73 13 07/04/17 14:11 74 13 153/97 96 07/04/17 14:06 72 10 142/85 96 07/04/17 14:06 71 10 07/04/17 14:01 71 12 135/87 96 07/04/17 14:01 71 12 07/04/17 13:56 69 16 141/88 96 07/04/17 13:56 70 16 07/04/17 13:56 36.2 71 16 141/88 97 Nasal Cannula 4 07/04/17 13:51 71 8 150/95 96 07/04/17 13:51 71 8 07/04/17 13:46 71 10 152/91 96 07/04/17 13:46 70 10 07/04/17 13:41 71 15 07/04/17 13:41 71 15 153/92 96 07/04/17 13:36 72 13 07/04/17 13:36 72 13 153/92 96 07/04/17 13:31 77 16 157/100 94 07/04/17 13:31 77 16 07/04/17 13:26 76 17 163/101 95 07/04/17 13:26 76 17 07/04/17 13:21 77 17 161/102 96 07/04/17 13:21 77 17 07/04/17 13:16 79 18 166/105 97 07/04/17 13:16 80 18 07/04/17 13:11 80 15 156/96 98 07/04/17 13:11 80 15 07/04/17 13:06 84 20 07/04/17 13:06 87 20 170/106 97 07/04/17 13:01 90 16 181/110 98 07/04/17 13:01 90 16 07/04/17 12:58 149/115 07/04/17 12:56 94 20 07/04/17 12:56 93 20 184/112 98 07/04/17 12:54 167/110 07/04/17 12:52 167/112 07/04/17 12:51 96 19 97 07/04/17 12:51 97 19 07/04/17 12:51 36.2 96 18 167/112 97 Mask 10 07/04/17 08:46 36.7 88 18 102/82 97 Room Air Physical Exam: STEVAN drainage (serosanguinous) General Appearance: no apparent distress Respiratory/Chest: no respiratory distress, no accessory muscle use Abdomen: soft, + pertinent finding (expected tenderness) Incision(s): clean, dry, intact Laboratory Results: Results Past 24 Hours Test 07/05/17 05:57 Range/Units White Blood Count 18.10 4.8-10.8 K/uL Red Blood Count 4.46 4.2-5.4 M/uL Hemoglobin 12.8 12.0-16.0 g/dL Hematocrit 38.2 37-47 % Mean Corpuscular Volume 85.7 80-100 fL Mean Corpuscular Hemoglobin 28.7 25-34 pg Mean Corpuscular Hemoglobin Concent 33.5 32-36 g/dl Platelet Count 247 130-400 K/uL Mean Platelet Volume 9.7 7.4-10.4 fL Neutrophils (%) (Auto) 83.6 % Lymphocytes (%) (Auto) 8.9 % Monocytes (%) (Auto) 7.1 % Eosinophils (%) (Auto) 0.0 % Basophils (%) (Auto) 0.1 % Neutrophils # (Auto) 15.15 1.4-6.5 K/uL Lymphocytes # (Auto) 1.61 1.2-3.4 K/uL Monocytes # (Auto) 1.28 0.11-0.59 K/uL Eosinophils # (Auto) 0.00 0-0.5 K/uL Basophils # (Auto) 0.01 0-0.2 K/uL RDW Standard Deviation 43.4 36.4-46.3 fL RDW Coefficient of Variation 13.9 11.5-14.5 % Immature Granulocyte % (Auto) 0.3 % Immature Granulocyte # (Auto) 0.05 0.00-0.02 K/uL Prothrombin Time 10.7 9.0-12.0 SECONDS Prothromb Time International Ratio 1.0 0.9-1.1 Activated Partial Thromboplast Time 27.4 21.0-31.0 SECONDS Partial Thromboplastin Ratio 1.1 Sodium Level 138 136-145 mmol/L Potassium Level 4.2 3.5-5.1 mmol/L Chloride Level 104 98-107 mmol/L Carbon Dioxide Level 26 21-32 mmol/L Anion Gap 8.0 3-11 mmol/L Blood Urea Nitrogen 9 7-18 mg/dl Creatinine 0.64 0.60-1.20 mg/dl Est Creatinine Clear Calc Drug Dose 74.3 ml/min Estimated GFR () 107.0 Estimated GFR (Non- 92.3 BUN/Creatinine Ratio 13.6 10-20 Random Glucose 114 70-99 mg/dl Calcium Level 8.0 8.5-10.1 mg/dl Assessment & Plan 07/05/17 doing as expected pain control adequate keep rosario for 1 more day increase activity monitor labs/hemoglobin pt hypotensive but asymptomatic and normally runs low ice chips only today
[2017-07-05] MEDS: CITALOPRAM 20 MG TAB PO SCH (09:54)
[2017-07-05] MEDS: FLUTICASONE PROPIONATE NA SPR 16 GM BTL SCH (09:55)
[2017-07-05] MEDS: ENOXAPARIN 30 MG/0.3 ML SYR SQ SCH ×2 (09:58→21:18)
[2017-07-05] MEDS ORDERED: NURSING VERBAL MED ORDER ONE (11:45)
[2017-07-05] MEDS: PROMETHAZINE HCL INJ 25 MG in SODIUM CHLORIDE 0.9% 50ML 50 ML IV PRN ×2 (12:01→17:53)
[2017-07-05] MEDS: SODIUM CHLORIDE 0.9% 1000ML 1,000 ML IV SCH (12:08)
[2017-07-06] VITALS (8 sets, daily range): BP systolic 76–126; BP diastolic 52–79; PULSE 76–94; TEMP 36.3–37.1; O2SAT 90–96
[2017-07-06] MEDS: LACTATED RINGER'S 1000ML 1,000 ML IV SCH ×3 (05:26→21:20)
[2017-07-06] MEDS: NICOTINE 14 MG/24 HR TDSY TD SCH (05:28)
[2017-07-06] MEDS: ACETAMINOPHEN IV 1,000 MG in EMPTY BAG 0 ML IV SCH ×3 (05:29→22:05)
[2017-07-06 07:09] LABS: BASO % 0.1 %; BASO ABS # 0.01 K/uL (0-0.2); COMPLETE YES; EOS % 0.3 %; HEMATOCRIT 33.9 % (37-47); IG% 0.1 %; LYMPH % 28.8 %; LYMPH ABS # 2.87 K/uL (1.2-3.4); MEAN CELL VOLUME 88.1 fL (80-100); MEAN CORPUSCULAR HEMOGLOBIN 27.8 pg (25-34); MEAN CORPUSCULAR HGB CONC 31.6 g/dl (32-36); MEAN PLATELET VOLUME 9.4 fL (7.4-10.4); MONO % 7.3 %; NEUT % 63.4 %; PLATELET COUNT 192 K/uL (130-400); RED BLOOD COUNT 3.85 M/uL (4.2-5.4); WHITE BLOOD COUNT 9.96 K/uL (4.8-10.8)
[2017-07-06 07:37] LABS: BUN/CREATININE RATIO 18.1 (10-20); CALCIUM 7.8 mg/dl (8.5-10.1); CREATININE 0.39 mg/dl (0.60-1.20); POTASSIUM 4.3 mmol/L (3.5-5.1)
[2017-07-06] MEDS: CITALOPRAM 20 MG TAB PO SCH (08:37)
[2017-07-06] MEDS: FLUTICASONE PROPIONATE NA SPR 16 GM BTL SCH (08:37)
[2017-07-06] MEDS: ENOXAPARIN 30 MG/0.3 ML SYR SQ SCH ×2 (08:38→21:20)
--- NOTE | 2017-07-06 10:33 | Surgery Progress Note ---
Surgery Progress Note Date of Service Jul 06, 2017. Subjective Post OP Day: 2 + feeling well pain controlled. no bowel fx yet. Objective Vital Signs: Date Time Temp Pulse Resp B/P (MAP) Pulse Ox O2 Delivery O2 Flow Rate FiO2 07/06/17 07:25 37.1 78 16 96/55 (69) 92 Nasal Cannula 2.0 07/06/17 03:35 36.7 76 14 126/79 (95) 96 Nasal Cannula 2.5 07/06/17 00:54 93/57 (69) 07/05/17 23:58 Nasal Cannula 2.0 07/05/17 23:25 36.6 69 14 90/57 (68) 99 Nasal Cannula 2.5 07/05/17 16:45 Nasal Cannula 2.0 07/05/17 15:12 36.8 70 16 84/55 (65) 98 Room Air 07/05/17 11:59 103/61 (75) 07/05/17 11:39 37.0 82 15 91/56 (68) 96 Nasal Cannula 2.0 Physical Exam: STEVAN drainage (serosanguinous) General Appearance: no apparent distress Respiratory/Chest: no respiratory distress, no accessory muscle use Abdomen: soft, + pertinent finding (expected ttp. ) Incision(s): clean, dry, intact, no erythema Laboratory Results: Results Past 24 Hours Test 07/06/17 06:39 Range/Units White Blood Count 9.96 4.8-10.8 K/uL Red Blood Count 3.85 4.2-5.4 M/uL Hemoglobin 10.7 12.0-16.0 g/dL Hematocrit 33.9 37-47 % Mean Corpuscular Volume 88.1 80-100 fL Mean Corpuscular Hemoglobin 27.8 25-34 pg Mean Corpuscular Hemoglobin Concent 31.6 32-36 g/dl Platelet Count 192 130-400 K/uL Mean Platelet Volume 9.4 7.4-10.4 fL Neutrophils (%) (Auto) 63.4 % Lymphocytes (%) (Auto) 28.8 % Monocytes (%) (Auto) 7.3 % Eosinophils (%) (Auto) 0.3 % Basophils (%) (Auto) 0.1 % Neutrophils # (Auto) 6.31 1.4-6.5 K/uL Lymphocytes # (Auto) 2.87 1.2-3.4 K/uL Monocytes # (Auto) 0.73 0.11-0.59 K/uL Eosinophils # (Auto) 0.03 0-0.5 K/uL Basophils # (Auto) 0.01 0-0.2 K/uL RDW Standard Deviation 46.4 36.4-46.3 fL RDW Coefficient of Variation 14.3 11.5-14.5 % Immature Granulocyte % (Auto) 0.1 % Immature Granulocyte # (Auto) 0.01 0.00-0.02 K/uL Sodium Level 142 136-145 mmol/L Potassium Level 4.3 3.5-5.1 mmol/L Chloride Level 108 98-107 mmol/L Carbon Dioxide Level 31 21-32 mmol/L Anion Gap 3.0 3-11 mmol/L Blood Urea Nitrogen 7 7-18 mg/dl Creatinine 0.39 0.60-1.20 mg/dl Est Creatinine Clear Calc Drug Dose 121.8 ml/min Estimated GFR () 126.0 Estimated GFR (Non- 108.7 BUN/Creatinine Ratio 18.1 10-20 Random Glucose 83 70-99 mg/dl Calcium Level 7.8 8.5-10.1 mg/dl Assessment & Plan 07/06/17 doing well d/c rosario increase activity d/c customer service specialist start clears 07/05/17 doing as expected pain control adequate keep rosario for 1 more day increase activity monitor labs/hemoglobin pt hypotensive but asymptomatic and normally runs low ice chips only today 07/05/17 doing as expected pain control adequate keep rosario for 1 more day increase activity monitor labs/hemoglobin pt hypotensive but asymptomatic and normally runs low ice chips only today
[2017-07-06] MEDS ORDERED: HYDROmorphone INJ 1 MG/ML SYR IV PRN (10:45)
[2017-07-06] MEDS ORDERED: HYDROCODONE/ACETAMOPHEN 5/325MG TAB PO PRN (10:45)
[2017-07-06] MEDS: PROMETHAZINE HCL INJ 25 MG in SODIUM CHLORIDE 0.9% 50ML 50 ML IV PRN (18:02)
[2017-07-07] VITALS (10 sets, daily range): BP systolic 95–126; BP diastolic 63–80; PULSE 76–105; TEMP 36.8–37.1; O2SAT 38–98
[2017-07-07] MEDS: ACETAMINOPHEN IV 1,000 MG in EMPTY BAG 0 ML IV SCH ×3 (05:14→21:45)
[2017-07-07] MEDS: LACTATED RINGER'S 1000ML 1,000 ML IV SCH ×3 (05:16→21:23)
[2017-07-07] MEDS: NICOTINE 14 MG/24 HR TDSY TD SCH (05:21)
[2017-07-07] MEDS: PROMETHAZINE HCL INJ 25 MG in SODIUM CHLORIDE 0.9% 50ML 50 ML IV PRN (05:40)
[2017-07-07 05:57] LABS: BASO % 0.1 %; BASO ABS # 0.01 K/uL (0-0.2); COMPLETE YES; EOS % 0.5 %; HEMATOCRIT 35.8 % (37-47); IG% 0.2 %; LYMPH % 19.9 %; LYMPH ABS # 1.89 K/uL (1.2-3.4); MEAN CORPUSCULAR HGB CONC 30.7 g/dl (32-36); MONO % 5.9 %; NEUT % 73.4 %; PLATELET COUNT 187 K/uL (130-400); RED BLOOD COUNT 4.07 M/uL (4.2-5.4)
[2017-07-07 06:23] LABS: BUN/CREATININE RATIO 12.3 (10-20); CALCIUM 8.3 mg/dl (8.5-10.1); CREATININE 0.4 mg/dl (0.60-1.20); POTASSIUM 3.7 mmol/L (3.5-5.1)
[2017-07-07] MEDS: CITALOPRAM 20 MG TAB PO SCH (09:44)
[2017-07-07] MEDS: FLUTICASONE PROPIONATE NA SPR 16 GM BTL SCH (09:44)
[2017-07-07] MEDS: ENOXAPARIN 30 MG/0.3 ML SYR SQ SCH ×2 (09:44→21:25)
--- NOTE | 2017-07-07 10:59 | Surgery Progress Note ---
Surgery Progress Note Date of Service Jul 07, 2017. Subjective Post OP Day: 3 + feeling well Objective Vital Signs: Date Time Temp Pulse Resp B/P (MAP) Pulse Ox O2 Delivery O2 Flow Rate FiO2 07/07/17 08:20 97 Nasal Cannula 1.0 07/07/17 07:34 37.0 76 16 125/77 (93) 97 Nasal Cannula 1.0 07/07/17 00:30 91 Nasal Cannula 2.0 07/06/17 23:07 37.0 94 17 106/72 (83) 92 Nasal Cannula 2.5 07/06/17 19:16 36.3 90 18 118/76 (90) 90 Room Air 07/06/17 15:45 92 Room Air 07/06/17 15:00 36.7 80 18 76/52 (60) 92 Room Air 92/56 (68) Physical Exam: STEVAN drainage (serous) General Appearance: no apparent distress Abdomen: non distended, soft Incision(s): clean, dry, intact, no erythema Laboratory Results: Results Past 24 Hours Test 07/07/17 05:43 Range/Units White Blood Count 9.50 4.8-10.8 K/uL Red Blood Count 4.07 4.2-5.4 M/uL Hemoglobin 11.0 12.0-16.0 g/dL Hematocrit 35.8 37-47 % Mean Corpuscular Volume 88.0 80-100 fL Mean Corpuscular Hemoglobin 27.0 25-34 pg Mean Corpuscular Hemoglobin Concent 30.7 32-36 g/dl Platelet Count 187 130-400 K/uL Mean Platelet Volume 9.0 7.4-10.4 fL Neutrophils (%) (Auto) 73.4 % Lymphocytes (%) (Auto) 19.9 % Monocytes (%) (Auto) 5.9 % Eosinophils (%) (Auto) 0.5 % Basophils (%) (Auto) 0.1 % Neutrophils # (Auto) 6.97 1.4-6.5 K/uL Lymphocytes # (Auto) 1.89 1.2-3.4 K/uL Monocytes # (Auto) 0.56 0.11-0.59 K/uL Eosinophils # (Auto) 0.05 0-0.5 K/uL Basophils # (Auto) 0.01 0-0.2 K/uL RDW Standard Deviation 45.3 36.4-46.3 fL RDW Coefficient of Variation 14.0 11.5-14.5 % Immature Granulocyte % (Auto) 0.2 % Immature Granulocyte # (Auto) 0.02 0.00-0.02 K/uL Sodium Level 140 136-145 mmol/L Potassium Level 3.7 3.5-5.1 mmol/L Chloride Level 105 98-107 mmol/L Carbon Dioxide Level 30 21-32 mmol/L Anion Gap 5.0 3-11 mmol/L Blood Urea Nitrogen 5 7-18 mg/dl Creatinine 0.40 0.60-1.20 mg/dl Est Creatinine Clear Calc Drug Dose 118.8 ml/min Estimated GFR () 124.9 Estimated GFR (Non- 107.8 BUN/Creatinine Ratio 12.3 10-20 Random Glucose 93 70-99 mg/dl Calcium Level 8.3 8.5-10.1 mg/dl Assessment & Plan 07/07/17 continues to do well awaiting bowel fx keep on clears for now increase activity 07/06/17 doing well d/c rosario increase activity d/c ear nose and throat specialist start clears 07/05/17 doing as expected pain control adequate keep rosario for 1 more day increase activity monitor labs/hemoglobin pt hypotensive but asymptomatic and normally runs low ice chips only today 07/06/17 doing well d/c rosario increase activity d/c ear nose and throat specialist start clears 07/05/17 doing as expected pain control adequate keep rosario for 1 more day increase activity monitor labs/hemoglobin pt hypotensive but asymptomatic and normally runs low ice chips only today
[2017-07-07] MEDS ORDERED: OXYCODONE HCL IR 5 MG TAB (IMMEDIATE RELEASE) PO PRN (11:00)
[2017-07-07] MEDS ORDERED: NURSING VERBAL MED ORDER ONE (13:00)
[2017-07-07] MEDS: OXYCODONE HCL IR 5 MG TAB (IMMEDIATE RELEASE) PO PRN ×2 (15:27→19:23)
[2017-07-07] MEDS: ONDANSETRON INJ 2 MG/ML 2 ML VIAL IV PRN (15:31)
[2017-07-07] MEDS ORDERED: NURSING VERBAL MED ORDER STA (23:21)
[2017-07-07] MEDS ORDERED: ALBUTEROL 0.083% NEBU SOLN 3 ML VIAL INH ONE (23:30)
[2017-07-08 02:57] VITALS: BP 110/73; PULSE 81; TEMP 36.7; O2SAT 97
[2017-07-08] MEDS: LACTATED RINGER'S 1000ML 1,000 ML IV SCH ×3 (05:08→20:43)
[2017-07-08] MEDS: OXYCODONE HCL IR 5 MG TAB (IMMEDIATE RELEASE) PO PRN ×5 (05:19→19:29)
[2017-07-08] MEDS: ACETAMINOPHEN IV 1,000 MG in EMPTY BAG 0 ML IV SCH ×4 (05:20→21:44)
[2017-07-08] MEDS: NICOTINE 14 MG/24 HR TDSY TD SCH (05:22)
[2017-07-08 05:26] VITALS: O2SAT 98
--- NOTE | 2017-07-08 06:56 | DIAGNOSTIC IMAGING REPORT ---
CHEST ONE VIEW PORTABLE CLINICAL HISTORY: 66 years-old Female presenting with Low O2 sats. TECHNIQUE: Portable upright AP view of the chest was obtained. COMPARISON: 06/28/2017. FINDINGS: Atherosclerosis of aortic arch. Cardiac silhouette normal in size. Interval increase in bibasilar opacities, greater on the left. Trace right and small left pleural effusion suspected. No pneumothorax. Osseous structures normal. Upper abdomen normal. IMPRESSION: 1. Bibasilar opacities greater on the left. This could represent atelectasis, mild edema, or aspiration. 2. Trace right and small left pleural effusions. Electronically signed by: Heladio Brown M.D. 07/08/2017 6:55 AM Dictated Date/Time: 07/08/2017 6:53 AM
[2017-07-08 07:28] VITALS: BP 120/76; PULSE 71; TEMP 37; O2SAT 97
--- NOTE | 2017-07-08 07:47 | Surgery Progress Note ---
Surgery Progress Note Date of Service Jul 08, 2017. Subjective Post OP Day: 4 + feeling well had some low o2 sat last night but I suspect was the pulse oximeter. no complaints. pain controlled. no bm or flatus yet Objective Vital Signs: Date Time Temp Pulse Resp B/P (MAP) Pulse Ox O2 Delivery O2 Flow Rate FiO2 07/08/17 07:28 37.0 71 16 120/76 (91) 97 Nasal Cannula 2.0 07/08/17 07:10 Nasal Cannula 2.0 07/08/17 05:26 98 Nasal Cannula 4.0 07/08/17 02:57 36.7 81 14 110/73 (85) 97 Nasal Cannula 6.0 07/07/17 23:45 97 Nasal Cannula 6.0 07/07/17 23:45 98 07/07/17 23:36 104 20 98 Nasal Cannula 6.0 07/07/17 23:17 87 Nasal Cannula 6.0 07/07/17 23:15 90 Nasal Cannula 6.0 07/07/17 23:09 95/63 (74) 77 Nasal Cannula 3.0 07/07/17 23:08 37.1 105 14 95/63 (74) 38 Room Air 07/07/17 15:30 Room Air 1.0 07/07/17 15:00 36.8 95 20 126/80 (95) 92 Room Air 07/07/17 08:20 97 Nasal Cannula 1.0 General Appearance: no apparent distress Abdomen: non tender, non distended, soft Incision(s): clean, dry, intact Assessment & Plan 07/08/17 no acute issues awaiting bowel fx will increase to full liquids. increase activity 07/07/17 continues to do well awaiting bowel fx keep on clears for now increase activity 07/06/17 doing well d/c rosario increase activity d/c drug regulatory affairs specialist start clears 07/05/17 doing as expected pain control adequate keep rosario for 1 more day increase activity monitor labs/hemoglobin pt hypotensive but asymptomatic and normally runs low ice chips only today 07/07/17 continues to do well awaiting bowel fx keep on clears for now increase activity 07/06/17 doing well d/c rosario increase activity d/c drug regulatory affairs specialist start clears 07/05/17 doing as expected pain control adequate keep rosario for 1 more day increase activity monitor labs/hemoglobin pt hypotensive but asymptomatic and normally runs low ice chips only today
[2017-07-08] MEDS: ENOXAPARIN 30 MG/0.3 ML SYR SQ SCH ×2 (08:25→20:43)
[2017-07-08] MEDS: FLUTICASONE PROPIONATE NA SPR 16 GM BTL SCH (08:25)
[2017-07-08] MEDS: CITALOPRAM 20 MG TAB PO SCH (08:25)
[2017-07-08 10:26] VITALS: O2SAT 91
[2017-07-08 15:57] VITALS: BP 119/72; PULSE 83; TEMP 36.7; O2SAT 92
[2017-07-08 23:00] VITALS: BP 126/79; PULSE 82; TEMP 37.3; O2SAT 92
[2017-07-09] MEDS: LACTATED RINGER'S 1000ML 1,000 ML IV SCH ×2 (04:16→21:06)
[2017-07-09] MEDS: ACETAMINOPHEN IV 1,000 MG in EMPTY BAG 0 ML IV SCH (05:36)
[2017-07-09] MEDS: NICOTINE 14 MG/24 HR TDSY TD SCH (05:37)
[2017-07-09] MEDS: OXYCODONE HCL IR 5 MG TAB (IMMEDIATE RELEASE) PO PRN ×4 (05:39→20:00)
[2017-07-09] MEDS ORDERED: OXYC-57 PO (07:01)
[2017-07-09 07:03] VITALS: BP 128/80; PULSE 73; TEMP 37; O2SAT 92
--- NOTE | 2017-07-09 07:03 | Discharge Instructions ---
Discharge Instructions Date of Service Jul 09, 2017. Admission Reason for Admission: Diverticulitis, Small Bowel Fistula Discharge Discharge Diagnosis / Problem: Sigmoid resection Discharge Goals Goal(s): Decrease discomfort Activity Recommendations Activity Limitations: as noted below Lifting Limitations: no more than 10 pounds Shower/Bathe: no limitations Driving or Machine Use: resume 1 day after discharge . Instructions / Follow-Up Instructions / Follow-Up Dr. Brush in 1-2 weeks, call [phone] to schedule Current Hospital Diet Patient's current hospital diet: Full Liquid Diet Discharge Diet Recommended Diet: Low Fat Diet (for a few days) Procedures Procedures Performed: Open Sigmoid Colon Resection, Partial Small Bowel Resection, Take down of enterovaginal fistula with Primary Repair Pending Studies Studies pending at discharge: no Medical Emergencies . Who to Call and When: Medical Emergencies: If at any time you feel your situation is an emergency, please call 911 immediately. . Non-Emergent Contact Non-Emergency issues call your: Surgeon Call Non-Emergent contact if: you have a fever, temperature is above 101.5, your pain is not controlled, wound has increased redness, you have any medication questions . "Provider Documentation" section prepared by Colton Schuster. . VTE Core Measure Inpt VTE Proph given/why not?: Enoxaparin (Lovenox)SQ, SCD's [place] Drug Monitoring Program Search Results: no issues identified
[2017-07-09] MEDS: CITALOPRAM 20 MG TAB PO SCH (08:34)
[2017-07-09] MEDS: ENOXAPARIN 30 MG/0.3 ML SYR SQ SCH ×2 (08:35→21:05)
[2017-07-09] MEDS: FLUTICASONE PROPIONATE NA SPR 16 GM BTL SCH (08:35)
--- NOTE | 2017-07-09 08:48 | Surgery Progress Note ---
Surgery Progress Note Date of Service Jul 09, 2017. Subjective Post OP Day: 5 + feeling well, + flatus, + pain controlled, + diet (full liquids), No bowel movement, No nausea Objective Vital Signs: Date Time Temp Pulse Resp B/P (MAP) Pulse Ox O2 Delivery O2 Flow Rate FiO2 07/09/17 07:03 37.0 73 17 128/80 (96) 92 Room Air 07/09/17 00:15 Nasal Cannula 2.0 07/08/17 23:00 37.3 82 16 126/79 (95) 92 Room Air 07/08/17 15:57 36.7 83 18 119/72 (88) 92 Room Air 07/08/17 15:10 Room Air 07/08/17 10:26 91 Room Air Abdomen: non distended, soft Assessment & Plan s/p lap sigmoid/partial small bowel resection for diverticulitis/enterocolic & enterovaginal fistula bowel function returning will advance diet cont drain until bowels moving decrease IVF, d/c Ofirmev
--- NOTE | 2017-07-09 09:10 | Surgery Progress Note ---
Surgery Progress Note Date of Service Jul 09, 2017. Subjective Post OP Day: 5 + feeling well, + flatus +flatus. no bm. Objective Vital Signs: Date Time Temp Pulse Resp B/P (MAP) Pulse Ox O2 Delivery O2 Flow Rate FiO2 07/09/17 07:03 37.0 73 17 128/80 (96) 92 Room Air 07/09/17 00:15 Nasal Cannula 2.0 07/08/17 23:00 37.3 82 16 126/79 (95) 92 Room Air 07/08/17 15:57 36.7 83 18 119/72 (88) 92 Room Air 07/08/17 15:10 Room Air 07/08/17 10:26 91 Room Air Physical Exam: STEVAN drainage (serous) Abdomen: non distended, soft Incision(s): clean, dry, intact, no erythema Assessment & Plan 07/09/2017 doing well can advance diet awaiting bm hopeful d/c tomorrow. 07/08/17 no acute issues awaiting bowel fx will increase to full liquids. increase activity 07/07/17 continues to do well awaiting bowel fx keep on clears for now increase activity 07/06/17 doing well d/c rosario increase activity d/c rock worker start clears 07/05/17 doing as expected pain control adequate keep rosario for 1 more day increase activity monitor labs/hemoglobin pt hypotensive but asymptomatic and normally runs low ice chips only today 07/08/17 no acute issues awaiting bowel fx will increase to full liquids. increase activity 07/07/17 continues to do well awaiting bowel fx keep on clears for now increase activity 07/06/17 doing well d/c rosario increase activity d/c rock worker start clears 07/05/17 doing as expected pain control adequate keep rosario for 1 more day increase activity monitor labs/hemoglobin pt hypotensive but asymptomatic and normally runs low ice chips only today
[2017-07-09 15:00] VITALS: BP 154/86; PULSE 85; TEMP 36.5; O2SAT 95
[2017-07-09] MEDS ORDERED: ACETAMINOPHEN 325 MG TAB ONE (18:38)
[2017-07-09 23:03] VITALS: BP 126/78; PULSE 81; TEMP 37.1; O2SAT 93
[2017-07-10] MEDS: NICOTINE 14 MG/24 HR TDSY TD SCH (05:25)
[2017-07-10] MEDS: OXYCODONE HCL IR 5 MG TAB (IMMEDIATE RELEASE) PO PRN ×2 (05:28→11:06)
[2017-07-10 07:10] VITALS: BP 127/87; PULSE 86; TEMP 37.1; O2SAT 93
[2017-07-10] MEDS: FLUTICASONE PROPIONATE NA SPR 16 GM BTL SCH (08:56)
[2017-07-10] MEDS: CITALOPRAM 20 MG TAB PO SCH (08:56)
[2017-07-10] MEDS: ENOXAPARIN 30 MG/0.3 ML SYR SQ SCH (08:57)
[2017-07-10] MEDS ORDERED: NURSING VERBAL MED ORDER ONE (11:15)
[2017-07-10] MEDS ORDERED: ACETAMINOPHEN 325 MG TAB PO PRN (11:15)
--- NOTE | 2017-07-10 12:41 | Surgery Progress Note ---
Surgery Progress Note Date of Service Jul 10, 2017. Subjective + feeling well no complaints. no bm yet but increasing flatus. davion light diet. Objective Vital Signs: Date Time Temp Pulse Resp B/P (MAP) Pulse Ox O2 Delivery O2 Flow Rate FiO2 07/10/17 08:00 Room Air 07/10/17 07:10 37.1 86 16 127/87 (100) 93 Room Air 07/09/17 23:45 Room Air 07/09/17 23:03 37.1 81 17 126/78 (94) 93 Room Air 07/09/17 15:15 Room Air 07/09/17 15:00 36.5 85 20 154/86 (108) 95 Room Air Physical Exam: STEVAN drainage (serous/thin) General Appearance: no apparent distress Abdomen: non distended, soft Incision(s): clean, dry, intact, no erythema Assessment & Plan 07/10/17 doing very well. ambulating/eating/minimal pain +flatus. davion light diet doing very well...likely ok for d/c . will remove STEVAN if no bm at home by saturday pt to call office. 07/09/2017 doing well can advance diet awaiting bm hopeful d/c tomorrow. 07/08/17 no acute issues awaiting bowel fx will increase to full liquids. increase activity 07/07/17 continues to do well awaiting bowel fx keep on clears for now increase activity 07/06/17 doing well d/c rosario increase activity d/c consulting technical manager start clears 07/05/17 doing as expected pain control adequate keep rosario for 1 more day increase activity monitor labs/hemoglobin pt hypotensive but asymptomatic and normally runs low ice chips only today 07/09/2017 doing well can advance diet awaiting bm hopeful d/c tomorrow. 07/08/17 no acute issues awaiting bowel fx will increase to full liquids. increase activity 07/07/17 continues to do well awaiting bowel fx keep on clears for now increase activity 07/06/17 doing well d/c rosario increase activity d/c consulting technical manager start clears 07/05/17 doing as expected pain control adequate keep rosario for 1 more day increase activity monitor labs/hemoglobin pt hypotensive but asymptomatic and normally runs low ice chips only today
[2017-07-10 12:57] VITALS: BP 127/87; PULSE 86; TEMP 37.1; O2SAT 93
--- NOTE | 2017-07-12 12:25 | DISCHARGE SUMMARY ---
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 SECONDARY DISCHARGE DIAGNOSES: 1. Anxiety. 2. Dyslipidemia. PROCEDURES PERFORMED: Open sigmoid colon resection with partial small bowel resection and takedown of enterovaginal fistula with primary repair. 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 The procedure was well tolerated. She was transferred to the surgical floor. She was kept on IV Mefoxin postoperatively. WILDLIFE VETERINARIAN was used for postoperative analgesia. She was started on Lovenox on postoperative day #1 in addition to SCDs. She was started on clear liquids on postoperative day #2. Merida catheter was also removed. WILDLIFE VETERINARIAN was discontinued. She was kept on IV acetaminophen as primary analgesic. She continued to do well over the next few days, but had slow return of bowel function. She was advanced to full liquids on postoperative day #4. By day #5, she was having some flatus. She was able to tolerate a soft diet. By day #6, she was having increasing flatus and was tolerating a diet. She had not moved her bowels, but was otherwise doing well. She was tolerating oral analgesics and was independent with activity. STEVAN drain was removed from the pelvis. She was stable for discharge home. DISCHARGE INSTRUCTIONS: Discharge home. She will contact our office within 2 days if she has not had a bowel movement. Otherwise, follow up with Dr. Brush as planned in approximately 1 week. DISCHARGE MEDICATIONS: Percocet 1-2 tablets every 4 hours as needed and continue home medications. Zyrtec 10 mg daily, Celexa 20 mg daily, Calcium plus vitamin D 1 tablet daily, Nicoderm 14-mg patch as directed and Flonase nasal spray 2 sprays in the morning.
--- NOTE | 2017-07-14 12:59 | EDITING REQUIRED CODING QUERY ---
CODING QUERY To promote full compliance with coding requirements relating to patient care, provider participation is requested in all cases of rn new graduate uncertainty. Please assist us with the question(s) below: Coding Question(s): Patient admitted with diverticular fistulas. Resection of partial small bowel and sigmoid colon was performed. Please check the appropriate phrase below pertaining to the resection of the Sigmoid colon. ( This makes a difference in the ICD10 coding procedure assignment). Thanks for your help! Alejandro Dai [employer] [facility] Physician's Response(s): ____X___ The Sigmoid Colon was completely resected The Sigmoid Colon was partially resected Other/ Please specify: Cannot Determine if the Sigmoid Colon was partially or completely resected Principal Diagnosis: "_that condition established after study, to be chiefly responsible for occasioning the admission of the patient to the hospital for care." Co-Existing Principal Diagnosis: "_when two or more diagnoses equally meet the criteria for principal diagnosis as determined by the circumstances of admission, diagnostic work up, and/or therapy provided, and the Alphabetic Index, Tabular List, or another coding guideline does not provide sequencing direction, any one of the diagnoses may be sequenced first." "When the physician has documented what appears to be a current diagnosis in the body of the record, but has not included the diagnosis in the final diagnostic statement, the physician should be asked whether the diagnosis should be added." (Source Coding [facility] 2 QTR90. p3-4)
== END 2017-07-10 13:49 | disposition home or self-care (01) | DRG 330 ==
LOC: C.ACU 08:20 → C.MSN 09:30 → ENRESERV 13:44
PROVIDERS: ADMIT Surgery; ATTEND Surgery
PROC: 0DB80ZZ Excision of Small Intestine, Open Approach (ICD-10-PCS; principal; 2017-07-04 10:00)
PROC: 0DTN0ZZ Resection of Sigmoid Colon, Open Approach (ICD-10-PCS; principal; 2017-07-04 10:00)
DX: N82.4 Other female intestinal-genital tract fistulae (principal); K57.52 Diverticulitis of both small and large intestine without perforation or abscess without bleeding; K63.2 Fistula of intestine; F41.9 Anxiety disorder, unspecified; E78.5 Hyperlipidemia, unspecified; K64.8 Other hemorrhoids; M81.0 Age-related osteoporosis without current pathological fracture; F17.210 Nicotine dependence, cigarettes, uncomplicated; I95.81 Postprocedural hypotension